=== PATIENT | female | born 1985 | race Hispanic/Latino ===

== ENCOUNTER 2016-07-22 14:18 | Observation (INO) | payer MEDICAID ==
[2016-07-22 14:18] VITALS: BMI 23.1
[2016-07-22 16:53] LABS: BASO % 0.4 % (0.0-2.0); EOS # 0.2 K/uL (0.0-0.7); EOS % 3.1 % (0.0-4.0); HEMATOCRIT 36.9 % (34.0-47.0); LYMPH # 2.1 K/uL (1.0-4.3); LYMPH % 28.1 % (20.0-40.0); MEAN CELL VOLUME 86.3 fL (81.0-99.0); MEAN CORPUSCULAR HEMOGLOBIN 28.7 pg (27.0-31.0); MEAN CORPUSCULAR HGB CONC 33.3 g/dL (33.0-37.0); MEAN PLATELET VOLUME 8.2 fL (7.2-11.7); MONO # 0.6 K/uL (0.0-0.8); MONO % 7.6 % (0.0-10.0); RED CELL DISTRIBUTION WIDTH 16.4 % (11.5-14.5); WHITE BLOOD COUNT 7.5 K/uL (4.8-10.8)
[2016-07-22 17:03] LABS: CHLORIDE 106 mmol/L (98-107); POTASSIUM 3.8 mmol/L (3.6-5.2); SODIUM 144 mmol/L (132-148)
[2016-07-22 17:05] LABS: BILIRUBIN,TOTAL 0.2 mg/dL (0.2-1.3); CARBON DIOXIDE 28 mmol/L (22-30); GFR AFRICAN-AMERICAN > 60
[2016-07-22 17:06] LABS: ALB/GLOB RATIO 1.8 (1.0-2.1); ALKALINE PHOSPHATASE 51 U/L (38-126); ALT/SGPT 19 U/L (9-52); AST/SGOT 16 U/L (14-36); BLOOD UREA NITROGEN 12 mg/dL (7-17); CALCIUM 8.9 mg/dl (8.6-10.4); GLUCOSE,RANDOM 94 mg/dL (65-105); TOTAL PROTEIN 6.6 g/dL (6.3-8.3)
[2016-07-22] MEDS ORDERED: Dextrose 50% SYRINGE Inj (50 ml) ONE (17:11)
--- NOTE | 2016-07-22 17:46 | C.PDOC ---
History Of Present Illness 30 y/o female sent to emergency department by Dr. Harrell for left breast abscess. Pt denies pain at this time. Denies fever, chills or discharge from abscess. Chief Complaint (Nursing): Abnormal Skin Integrity History Per: Patient History/Exam Limitations: no limitations Onset/Duration Of Symptoms: Days Current Symptoms Are (Timing): Still Present Severity: Mild Recent travel outside of the [place]: No Past Medical History Reviewed: Historical Data, Nursing Documentation, Vital Signs Vital Signs: Last Vital Signs Temp 98.6 F 07/22/16 17:40 Pulse 58 L 07/22/16 17:40 Resp 18 07/22/16 17:40 BP 93/52 L 07/22/16 17:40 Pulse Ox 100 07/22/16 17:49 - Medical History PMH: Back Problems, Bronchitis Surgical History: Back Surgery (10/11/2015) - [facility] Procedures DRAINAGE OF BILATERAL BREAST, OPEN APPROACH (05/07/16) DRAINAGE OF BILATERAL BREAST, OPEN APPROACH, DIAGNOSTIC (03/27/16) EXTRACTION OF CHEST SUBCU/FASCIA, OPEN APPROACH (05/22/16) RESECTION OF LUMBOSACRAL DISC, OPEN APPROACH (10/05/15) Family History: States: Unknown Family Hx - Social History Hx Tobacco Use: Yes Hx Alcohol Use: No Hx Substance Use: Yes (marijuana) - Immunization History Hx Tetanus Toxoid Vaccination: No Hx Influenza Vaccination: No Hx Pneumococcal Vaccination: No Review Of Systems Except As Marked, All Systems Reviewed And Found Negative. Constitutional: Negative for: Fever Musculoskeletal: Positive for: Other (abscess to left breast, no pain or discharge at this time) Physical Exam - Physical Exam Appears: Non-toxic, No Acute Distress Skin: Warm, Dry, No Rash Head: Atraumatic, Normacephalic Neck: Normal ROM, Supple Chest: Symmetrical, Other (2 cm circular abscess at 12 o' clock position left breast, no discharge) Cardiovascular: Rhythm Regular Respiratory: Normal Breath Sounds Gastrointestinal/Abdominal: Soft Extremity: Bilateral: Atraumatic Neurological/Psych: Oriented x3 ED Course And Treatment - Laboratory Results Result Diagrams: 07/22/16 16:45 07/22/16 16:45 O2 Sat by Pulse Oximetry: 100 (on room air) Pulse Ox Interpretation: Normal Progress Note: Spoke to Julio Cesar, admitted to service for OR tomorrow Disposition - Disposition Disposition: HOSPITALIZED Disposition Time: 16:15 Condition: STABLE - Clinical Impression Clinical Impression: Breast abscess - Scribe Statement The provider has reviewed the documentation as recorded by the Phil Castellon Provider Attestation: All medical record entries made by the Phil were at my direction and personally dictated by me. I have reviewed the chart and agree that the record accurately reflects my personal performance of the history, physical exam, medical decision making, and the department course for this patient. I have also personally directed, reviewed, and agree with the discharge instructions and disposition.
[2016-07-22] MEDS ORDERED: Oxycodone/Acetaminophen 5/325 mg Tab PO PRN (18:50)
[2016-07-23] MEDS ORDERED: HYDROmorphone 1 mg/ml ISec IVP ONE (11:15)
--- NOTE | 2016-07-23 11:36 | CP.PCM.CON ---
History of Present Illness - History of Present Illness History of Present Illness: 30 y/o female sent to emergency department by Dr. Harrell for left breast abscess. Pt denies pain at this time. Denies fever, chills or discharge from abscess. MAY NEED BREAST BX CONT IV ANTIBIOTICS - Medical History PMH: Back Problems, Bronchitis Surgical History: Back Surgery (10/11/2015) - [facility] Procedures DRAINAGE OF BILATERAL BREAST, OPEN APPROACH (05/07/16) DRAINAGE OF BILATERAL BREAST, OPEN APPROACH, DIAGNOSTIC (03/27/16) EXTRACTION OF CHEST SUBCU/FASCIA, OPEN APPROACH (05/22/16) RESECTION OF LUMBOSACRAL DISC, OPEN APPROACH (10/05/15) Review of Systems - Constitutional Constitutional: absent: As Per HPI, Anorexia, Chills, Daytime Sleepiness, Excessive Sweating, Fatigue, Fever, Frequent Falls, Headache, Increased Appetite , Lethargy, Malaise, Night Sweats, Snoring, Sleep Apnea, Weight Gain, Weight Loss, Weakness, Other - EENT Eyes: absent: As Per HPI, Blind Spots, Blurred Vision, Change in Vision, Decreased Night Vision, Diplopia, Discharge, Dry Eye, Exophthalmos, Floaters, Irritation, Itchy Eyes, Loss of Peripheral Vision, Pain, Photophobia, Requires Corrective Lenses, Sees Flashes, Spots in Vision, Tunnel Vision, Other Visual Disturbances, Loss of Vision, Other Ears: absent: As Per HPI, Decreased Hearing, Ear Discharge, Ear Pain, Tinnitus, Abnormal Hearing, Disequilibrium, Dizziness, Other Nose/Mouth/Throat: absent: As Per HPI, Epistaxis, Nasal Congestion, Nasal Discharge, Nasal Obstruction, Nasal Trauma, Nose Pain, Post Nasal Drip, Sinus Pain, Sinus Pressure, Bleeding Gums, Change in Voice, Dental Pain, Dry Mouth, Dysphagia, Halitosis, Hoarsness, Lip Swelling, Mouth Lesions, Mouth Pain, Odynophagia, Sore Throat, Throat Swelling, Tongue Swelling, Facial Pain, Neck Pain, Neck Mass, Other - Breasts Breasts: As Per HPI - Cardiovascular Cardiovascular: absent: As Per HPI, Acrocyanosis, Chest Pain, Chest Pain at Rest , Chest Pain with Activity, Claudication, Diaphoresis, Dyspnea, Dyspnea on Exertion, Edema, Irregular Heart Rhythm, Pain Radiating to Arm/Neck/Jaw, Leg Edema, Leg Ulcers, Lightheadedness, Orthopnea, Palpitations, Paroxysmal Nocturnal Dyspnea, Pedal Edema, Radiating Pain, Rapid Heart Rate, Slow Heart Rate, Syncope, Other - Respiratory Respiratory: absent: As Per HPI, Cough, Dyspnea, Hemoptysis, Dyspnea on Exertion , Wheezing, Snoring, Stridor, Pain on Inspiration, Chest Congestion, Excessive Mucous Production, Change in Mucous Color, Pain with Coughing, Other - Gastrointestinal Gastrointestinal: absent: As Per HPI, Abdominal Pain, Belching, Bloating, Change in Bowel Habits, Change in Stool Character, Coffee Ground Emesis, Constipation, Cramping, Diarrhea, Dyspepsia, Dysphagia, Early Satiety, Excessive Flatus, Fecal Incontinence, Heartburn, Hematemesis, Hematochezia, Loose Stools, Melena, Nausea, Odynophagia, Temesmus, Vomiting, Other - Genitourinary Genitourinary: absent: As Per HPI, Change in Urinary Stream, Difficulty Urinating, Dysuria, Flank Pain, Hematuria, Pyuria, Nocturia, Urinary Incontinence, Urinary Frequency, Urinary Hesitance, Urinary Urgency, Voiding Freq/Small Amts, Freq UTI, Hx Renal/Bladder Calculi, Hx /Renal Surgery, Bladder Distension, Other - Reproductive: Female Reproductive:Female: absent: As Per HPI, Amenorrhea, Amenorrhea/ Control, Currently Menstual, Cycle <21 Days, Cycle >35 Days, Cycle Variable, Menses 1-7 Days, Menses >/= 8 Days, Menses Variable, Cycle > 4 Weeks Between, No Menses for 6 Months, Heavy Menses, Light Menses, Normal Menses, Spotting Between Cycles , S/P Hysterectomy, Menopausal, Post Menopausal, Premenarche, Abnormal Vaginal Bleeding, Dysmenorrhea, Dyspareunia, Genital Lesions, Genital Pruritis, Pelvic Pain, Prolapse Symptoms, Sexual Dysfunction, Vaginal Discharge, Vaginal Dryness , Vaginal Odor, Vaginal Pruritis, Other - Menstruation Menstruation: absent: As Per HPI, Amenorrhea, Amenorrhea/ Control, Currently Menstual, Cycle <21 Days, Cycle >35 Days, Cycle Variable, Menses 1-7 Days, Menses >/= 8 Days, Menses Variable, Cycle > 4 Weeks Between, No Menses for 6 Months, Heavy Menses, Light Menses, Normal Menses, Spotting Between Cycles , S/P Hysterectomy, Menopausal, Post Menopausal, Premenarche, Abnormal Vaginal Bleeding, Dysmenorrhea, Other - Musculoskeletal Musculoskeletal: absent: As Per HPI, Abnormal Gait, Arthralgias, Atrophy, Back Pain, Deformity, Joint Swelling, Limited Range of Motion, Loss of Height, Muscle Cramps, Muscle Weakness, Myalgias, Neck Pain, Numbness, Radiating Pain into Limb, Stiffness, Tingling, Other - Integumentary Integumentary: As Per HPI, Skin Pain, Wounds - Neurological Neurological: absent: As Per HPI, Abnormal Gait, Abnormal Hearing, Abnormal Movements, Abnormal Speech, Behavioral Changes, Burning Sensations, Confusion, Convulsions, Disequilibrium, Dizziness, Numbness, Focal Weakness, Frequent Falls , Headaches, Lack of Coordination, Loss of Vision, Memory Loss, Paresthesias, Radicular Pain, Restless Legs, Sensory Deficit, Syncope, Tingling, Tremor, Vertigo, Weakness, Other Visual Disturbances, Other - Psychiatric Psychiatric: absent: As Per HPI, Abnormal Sleep Pattern, Anhedonia, Anxiety, Auditory Hallucinations, Behavioral Changes, Change in Appetite, Change in Libido, Confusion, Depression, Difficulty Concentrating, Hallucinations, Homicidal Ideation, Hopelessness, Irritability, Memory Loss, Mood Swings, Panic Attacks, Paranoia, Suicidal Ideation, Visual Hallucinations, Tactile Hallucinations, Other - Endocrine Endocrine: absent: As Per HPI, Change in Body Appearance, Change in Libido, Cold Intolorance, Deepening of Voice, Excessive Sweating, Fatigue, Flushing, Heat Intolorance, Increase in Ring/Shoe/Hat Size, Palpitations, Polydipsia, Polyphagia, Polyuria, Other - Hematologic/Lymphatic Hematologic: absent: As Per HPI, Easy Bleeding, Easy Bruising, Lymphadenopathy, Other Past Patient History - Infectious Disease Hx of Infectious Diseases: None - Tetanus Immunizations Tetanus Immunization: Up to Date - Past Medical History & Family History Past Medical History?: Yes - Past Social History Smoking Status: Heavy Smoker > 10 Cigarettes Daily - CARDIAC Hx Cardiac Disorders: No Hx Hypertension: No - PULMONARY Hx Respiratory Disorders: Yes Hx Bronchitis: Yes - NEUROLOGICAL Hx Neurological Disorder: No Hx Seizures: No - HEENT Hx HEENT Problems: No - RENAL Hx Chronic Kidney Disease: No - ENDOCRINE/METABOLIC Hx Endocrine Disorders: No - HEMATOLOGICAL/ONCOLOGICAL Hx Blood Disorders: No Hx Anemia: No Hx Human Immunodeficiency Virus (HIV): No - INTEGUMENTARY Hx Dermatological Problems: Yes Other/Comment: PT. FOR SURGERY 11/08/15-DX:LEFT BREAST MASS. - MUSCULOSKELETAL/RHEUMATOLOGICAL Hx Musculoskeletal Disorders: Yes Hx Falls: No Other/Comment: hx back surgery - GASTROINTESTINAL Hx Gastrointestinal Disorders: No - GENITOURINARY/GYNECOLOGICAL Hx Genitourinary Disorders: No Hx Sexually Transmitted Disorders: No - PSYCHIATRIC Hx Psychophysiologic Disorder: Yes Hx Substance Use: Yes (marijuana) - SURGICAL HISTORY Hx Surgeries: Yes Hx Breast Biopsy: Yes Hx Orthopedic Surgery: Yes (LUMBAR LAMINECTOMY) Other/Comment: bilateral breast surgery march,Back Surgery 10/11/15 - ANESTHESIA Hx Anesthesia: Yes Hx Anesthesia Reactions: No Hx Malignant Hyperthermia: No Has any member of the family had a problem w/ anesthesia?: No Meds Allergies/Adverse Reactions: Allergies Allergy/AdvReac Type Severity Reaction Status Date / Time No Known Allergies Allergy Verified 07/22/16 15:20 - Medications Medications: Current Medications Hydromorphone HCl (Dilaudid) 2 mg IVP Q4H PRN PRN Reason: Pain, severe (8-10) Last Admin: 07/23/16 11:13 Dose: 2 mg Vancomycin HCl 1,000 mg/ (Sodium Chloride) 250 mls @ 166.6 mls/hr IVPB Q12H OPAL Last Admin: 07/23/16 04:45 Dose: 166.6 mls/hr Oxycodone/Acetaminophen (Percocet 5/325 Mg Tab) 2 tab PO Q4H PRN PRN Reason: Pain, moderate (4-7) Stop: 07/25/16 18:51 Last Admin: 07/22/16 20:43 Dose: 2 tab Physical Exam - Constitutional Appears: Non-toxic, Chronically Ill - Head Exam Head Exam: NORMOCEPHALIC - Eye Exam Eye Exam: PERRL. absent: Scleral icterus - ENT Exam ENT Exam: Mucous Membranes Dry - Neck Exam Neck exam: Negative for: Lymphadenopathy - Respiratory Exam Respiratory Exam: Decreased Breath Sounds, Clear to Auscultation Bilateral - Cardiovascular Exam Cardiovascular Exam: REGULAR RHYTHM, +S1, +S2 - GI/Abdominal Exam GI & Abdominal Exam: Diminished Bowel Sounds, Soft. absent: Tenderness - Rectal Exam Rectal Exam: Deferred - Exam Exam: NORMAL INSPECTION - Extremities Exam Extremities exam: Negative for: calf tenderness, pedal edema, tenderness - Back Exam Back exam: absent: CVA tenderness (L), CVA tenderness (R) - Neurological Exam Neurological exam: Alert, CN II-XII Intact, Oriented x3, Reflexes Normal - Psychiatric Exam Psychiatric exam: Normal Affect - Skin Skin Exam: Dry Additional comments: left breast abscess cellulitis Results - Vital Signs Recent Vital Signs: Last Vital Signs Temp 98.4 F 07/23/16 09:18 Pulse 64 07/23/16 09:18 Resp 20 07/23/16 09:18 BP 98/64 L 07/23/16 09:18 Pulse Ox 98 07/23/16 06:39 - Labs Result Diagrams: 07/22/16 16:45 07/22/16 16:45 Labs: Laboratory Results - last 24 hr 07/22/16 07/23/16 16:45 09:39 WBC 7.5 RBC 4.27 Hgb 12.3 Hct 36.9 MCV 86.3 MCH 28.7 MCHC 33.3 RDW 16.4 H Plt Count 192 MPV 8.2 Neut % (Auto) 60.8 Lymph % (Auto) 28.1 Delta % (Auto) 7.6 Eos % (Auto) 3.1 Baso % (Auto) 0.4 Neut # 4.6 Lymph # 2.1 Delta # 0.6 Eos # 0.2 Baso # 0.0 PT 10.9 INR 1.0 APTT 31 Sodium 144 Potassium 3.8 Chloride 106 Carbon Dioxide 28 Anion Gap 14 BUN 12 Creatinine 0.6 L Est GFR ( Amer) > 60 Est GFR (Non-Af Amer) > 60 Random Glucose 94 Calcium 8.9 Total Bilirubin 0.2 AST 16 ALT 19 Alkaline Phosphatase 51 Total Protein 6.6 Albumin 4.2 Globulin 2.3 Albumin/Globulin Ratio 1.8 Urine HCG, Qual Negative Negative Blood Type A POSITIVE Antibody Screen Negative Assessment & Plan (1) Abscess of breast Status: Acute (2) Breast mass Status: Acute
[2016-07-23] MEDS ORDERED: Midazolam 2 MG/2 ML VIAL ONE (12:42)
[2016-07-23] MEDS ORDERED: Propofol 10 mg/ml Inj (20 ML) ONE (12:42)
[2016-07-23] MEDS ORDERED: Bupivacaine HCl 0.25% PF (10 ml) Inj ONE (13:51)
[2016-07-23] MEDS: HYDROmorphone 0.5 mg/0.5 ml ISec IVP PRN ×3 (14:29→15:00)
[2016-07-23 16:16] VITALS: BP 104/61; PULSE 66; RESP 20; TEMP 97.9; O2SAT 98
--- NOTE | 2016-07-23 16:27 | OP ---
PROCEDURE DATE: 07/23/2016 PREOPERATIVE DIAGNOSIS: Left breast abscess. POSTOPERATIVE DIAGNOSIS: Left breast abscess. PROCEDURE PERFORMED: Wide and deep excision of left breast abscess cavity with adjacent tissue trans zulema closure. SURGEON: Barry Harrell MD. ANESTHESIA: General. ESTIMATED BLOOD LOSS: 20 mL. POSTOPERATIVE CONDITION: Stable. INDICATIONS FOR SURGERY: This is a 30-year-old female with a chronic left breast abscess near her le ft nipple who presents with a small recurrence. She is taken to the OR after treatment and antibioti cs for drainage and possible excision of the abscess cavity. PROCEDURE: The patient was taken to the operating room and placed in a supine position. General ane sthesia was administered and the left breast was prepped and draped. An elliptical incision was made surrounding the breast, the indurated portion of the left nipple edge in the medial section. It was carried down deeply and the breast cavity was excised without entering any pus. Bleeding was contro lled using the Bovie. A larger chest wall blood vessel was repaired. The wound was irrigated with c opious amounts of saline solution after cultures were taken. Tissue flaps were raised and adjacent t issue transfer closure was performed with multiple layers of Monocryl, subcuticular Monocryl, and glu e. The patient tolerated procedure well, returned to recovery room in stable condition. Barry Harrell MD cc: [id number] TT: 07/23/2016 16:26:41 co
== END 2016-07-23 20:30 | disposition home or self-care (01) ==
LOC: C.ER 14:18 → C.9E 16:39 → INTOOBSV 16:39 → C.6T 17:27 → C.9E 17:43 → C.3T 17:48
PROVIDERS: ADMIT Surgery; ATTEND Surgery
DX: N61.1 Abscess of the breast and nipple (principal); J40 Bronchitis, not specified as acute or chronic; F17.210 Nicotine dependence, cigarettes, uncomplicated
CPT/HCPCS: 19120; 80053; 84703; 85025; 85610; 85730; 86850; 86900; 87070; 88304; 96365; 96366; 99284; G0378; J1170; J2250; J2704; J3010; J3370

== ENCOUNTER 2016-09-16 12:41 | Inpatient (IN) | payer MEDICAID ==
[2016-09-16 12:42] VITALS: BMI 23.1
[2016-09-16] MEDS ORDERED: Sodium Chloride 0.9% 1,000 ML IV ONE (14:14)
[2016-09-16] MEDS ORDERED: Sodium Chloride 0.9% 1,000 ML ONE (14:31)
[2016-09-16 14:58] LABS: URINE BILIRUBIN NEGATIVE (NEGATIVE); URINE BLOOD NEGATIVE (NEGATIVE); URINE COLOR Yellow (YELLOW); URINE GLUCOSE (UA) NORMAL (Normal); URINE KETONE NEGATIVE (NEGATIVE); URINE LEUKOCYTE ESTERASE NEG Leu/uL (Negative); URINE PROTEIN NEGATIVE (NEGATIVE); URINE UROBILINOGEN NORMAL mg/dL (0.2-1.0); WBC URINE < 1 /hpf (0-5)
[2016-09-16 15:03] LABS: BASO # 0.1 K/uL (0.0-0.2); BASO % 0.8 % (0.0-2.0); EOS # 0.2 K/uL (0.0-0.7); EOS % 3.1 % (0.0-4.0); HEMATOCRIT 40.3 % (34.0-47.0); LYMPH # 2.5 K/uL (1.0-4.3); LYMPH % 32.2 % (20.0-40.0); MEAN CELL VOLUME 86.1 fL (81.0-99.0); MEAN CORPUSCULAR HEMOGLOBIN 28.1 pg (27.0-31.0); MEAN CORPUSCULAR HGB CONC 32.6 g/dL (33.0-37.0); MEAN PLATELET VOLUME 8.3 fL (7.2-11.7); MONO # 0.7 K/uL (0.0-0.8); MONO % 8.6 % (0.0-10.0); NRBC % 0.1 % (0.0-2.0); RED CELL DISTRIBUTION WIDTH 16.7 % (11.5-14.5); WHITE BLOOD COUNT 7.8 K/uL (4.8-10.8)
--- NOTE | 2016-09-16 15:07 | C.PDOC ---
History Of Present Illness Pt was sent in by Dr. Harrell to go to OR for I&D of left breast abscess. Time Seen by Provider: 09/16/16 13:57 Chief Complaint (Nursing): Abnormal Skin Integrity History Per: Patient Onset/Duration Of Symptoms: Days Current Symptoms Are (Timing): Still Present Location Of Injury: Left: Chest (breast) Quality Of Symptoms: Painful, Swollen, Draining Severity: Moderate Additional History Per: Prior Records Past Medical History Reviewed: Historical Data, Nursing Documentation, Vital Signs Vital Signs: Last Vital Signs Temp 98.7 F 09/16/16 13:13 Pulse 70 09/16/16 13:13 Resp 20 09/16/16 13:13 BP 101/68 09/16/16 13:13 Pulse Ox 100 09/16/16 13:13 - Medical History PMH: Back Problems, Bronchitis Other PMH: Abscesses Surgical History: Back Surgery (10/11/2015) - [facility] Procedures DRAINAGE OF BILATERAL BREAST, OPEN APPROACH (05/07/16) DRAINAGE OF BILATERAL BREAST, OPEN APPROACH, DIAGNOSTIC (03/27/16) EXCISION OF LEFT BREAST, OPEN APPROACH (07/22/16) EXTRACTION OF CHEST SUBCU/FASCIA, OPEN APPROACH (05/22/16) RESECTION OF LUMBOSACRAL DISC, OPEN APPROACH (10/05/15) Family History: States: Unknown Family Hx - Social History Hx Tobacco Use: Yes Hx Alcohol Use: Yes Hx Substance Use: Yes (marijuana) - Immunization History Hx Tetanus Toxoid Vaccination: No Hx Influenza Vaccination: No Hx Pneumococcal Vaccination: No Review Of Systems Except As Marked, All Systems Reviewed And Found Negative. Constitutional: Positive for: Chills. Negative for: Weakness Cardiovascular: Negative for: Chest Pain Respiratory: Negative for: Shortness of Breath Gastrointestinal: Negative for: Vomiting, Abdominal Pain Musculoskeletal: Negative for: Neck Pain Neurological: Negative for: Weakness, Numbness, Seizures, Altered Mental Status Physical Exam - Physical Exam Appears: Non-toxic, No Acute Distress Skin: Warm, Dry Head: Atraumatic, Normacephalic Eye(s): bilateral: PERRL, EOMI Neck: Normal ROM, Supple Chest: Other (tender mass in left breast) Cardiovascular: Rhythm Regular Respiratory: Normal Breath Sounds, No Accessory Muscle Use Gastrointestinal/Abdominal: Soft, No Tenderness Back: No CVA Tenderness Extremity: Normal ROM Neurological/Psych: Oriented x3, Normal Motor, Normal Sensation ED Course And Treatment - Laboratory Results Urine POC: Negative O2 Sat by Pulse Oximetry: 100 Pulse Ox Interpretation: Normal Disposition Discussed With : Barry Harrell Comment: He wants pt to be admitted on his service and will take her to the OR today. Doctor Will See Patient In The: Hospital - Disposition Disposition: HOSPITALIZED Disposition Time: 15:09 Condition: STABLE - Clinical Impression Clinical Impression: Abscess of left breast
[2016-09-16 15:08] LABS: CHLORIDE 103 mmol/L (98-107); SODIUM 140 mmol/L (132-148)
[2016-09-16 15:10] LABS: AST/SGOT 17 U/L (14-36); BILIRUBIN,TOTAL 0.4 mg/dL (0.2-1.3); CARBON DIOXIDE 25 mmol/L (22-30); GFR AFRICAN-AMERICAN > 60
[2016-09-16 15:11] LABS: ALB/GLOB RATIO 1.3 (1.0-2.1); ALKALINE PHOSPHATASE 46 U/L (38-126); ALT/SGPT 17 U/L (9-52); BLOOD UREA NITROGEN 10 mg/dL (7-17); CALCIUM 8.5 mg/dl (8.6-10.4); GLUCOSE,RANDOM 77 mg/dL (65-105); TOTAL PROTEIN 7.5 g/dL (6.3-8.3)
[2016-09-16] MEDS ORDERED: Lactated Ringer's 1,000 ML IV ONE (16:05)
--- NOTE | 2016-09-16 16:35 | CP.PCM.CON ---
History of Present Illness - History of Present Illness History of Present Illness: Medicine Consult Note- Dr. Jain's service Patient is a 31 year old female presenting to the ED after being sent in by Dr. Harrell for I&D of a left breast abscess. PMD: Dr. Martínez Shea Past medical history: breast abscess, bulging disc disease Allergies: NKDA Past surgical history: Lumbar discectomy and fusion, breast biopsy, I&D (03/28) Family history: mother: lupus, cervical cancer, CAD; Aunt: from breast cancer; father unknown Social history: lives alone, occasional alcohol use, smokes half pack a day, smokes marijuana. Review of Systems - Constitutional Constitutional: absent: Chills, Fever, Weight Loss, Weakness - EENT Eyes: absent: Blurred Vision, Change in Vision - Cardiovascular Cardiovascular: absent: Chest Pain, Claudication, Irregular Heart Rhythm, Leg Edema, Palpitations, Pedal Edema - Respiratory Respiratory: absent: Cough, Dyspnea, Wheezing - Gastrointestinal Gastrointestinal: absent: Abdominal Pain, Constipation, Diarrhea, Nausea, Vomiting - Genitourinary Genitourinary: absent: Difficulty Urinating, Dysuria - Musculoskeletal Musculoskeletal: absent: Myalgias, Numbness, Tingling - Integumentary Integumentary: absent: Skin Ulcer, Sores, Swelling, Wounds - Neurological Neurological: absent: Abnormal Movements, Tremor, Weakness - Psychiatric Psychiatric: absent: Anxiety, Mood Swings, Panic Attacks - Endocrine Endocrine: absent: Fatigue, Palpitations Past Patient History - Infectious Disease Hx of Infectious Diseases: None - Tetanus Immunizations Tetanus Immunization: Up to Date - Past Medical History & Family History Past Medical History?: Yes - Past Social History Smoking Status: Light Smoker < 10 Cigarettes Daily Alcohol: Occasional Drugs: Cannabis - CARDIAC Hx Cardiac Disorders: No Hx Hypertension: No - PULMONARY Hx Bronchitis: Yes - NEUROLOGICAL Hx Neurological Disorder: No Hx Seizures: No - HEENT Hx HEENT Problems: No - RENAL Hx Chronic Kidney Disease: No - ENDOCRINE/METABOLIC Hx Endocrine Disorders: No - HEMATOLOGICAL/ONCOLOGICAL Hx Blood Disorders: No Hx Anemia: No Hx Human Immunodeficiency Virus (HIV): No - INTEGUMENTARY Hx Dermatological Problems: Yes Other/Comment: PT. FOR SURGERY 11/08/15-DX:LEFT BREAST MASS. - MUSCULOSKELETAL/RHEUMATOLOGICAL Hx Musculoskeletal Disorders: Yes Hx Falls: No Other/Comment: hx back surgery - GASTROINTESTINAL Hx Gastrointestinal Disorders: No - GENITOURINARY/GYNECOLOGICAL Hx Genitourinary Disorders: No Hx Sexually Transmitted Disorders: No - PSYCHIATRIC Hx Substance Use: Yes (marijuana) - SURGICAL HISTORY Hx Surgeries: Yes Hx Breast Biopsy: Yes Hx Orthopedic Surgery: Yes (LUMBAR LAMINECTOMY) Other/Comment: bilateral breast surgery march,Back Surgery 10/11/15 - ANESTHESIA Hx Anesthesia: Yes Hx Anesthesia Reactions: No Hx Malignant Hyperthermia: No Meds Allergies/Adverse Reactions: Allergies Allergy/AdvReac Type Severity Reaction Status Date / Time No Known Allergies Allergy Verified 09/16/16 13:20 Physical Exam - Constitutional Appears: Non-toxic, No Acute Distress - Head Exam Head Exam: ATRAUMATIC, NORMAL INSPECTION, NORMOCEPHALIC - Eye Exam Pupil Exam: NORMAL ACCOMODATION, PERRL - ENT Exam ENT Exam: Mucous Membranes Moist - Respiratory Exam Respiratory Exam: Clear to Auscultation Bilateral, NORMAL BREATHING PATTERN. absent: Prolonged Expiratory Phase, Rales, Rhonchi - Cardiovascular Exam Cardiovascular Exam: REGULAR RHYTHM, +S1, +S2 - GI/Abdominal Exam GI & Abdominal Exam: Normal Bowel Sounds, Soft. absent: Distended, Firm, Tenderness - Neurological Exam Neurological exam: Alert, Oriented x3 - Psychiatric Exam Psychiatric exam: Normal Affect - Skin Skin Exam: Dry, Normal Color, Warm Results - Vital Signs Recent Vital Signs: Last Vital Signs Temp 98.4 F 09/16/16 15:20 Pulse 76 09/16/16 15:20 Resp 16 09/16/16 15:20 BP 104/72 09/16/16 15:20 Pulse Ox 98 09/16/16 15:20 - Labs Result Diagrams: 09/16/16 14:57 09/16/16 14:57 Assessment & Plan (1) Abscess of breast Assessment and Plan: Scheduled for I&D today Status: Acute (2) Prophylactic measure Status: Acute
[2016-09-16] MEDS ORDERED: Propofol 10 mg/ml Inj (20 ML) ONE ×2 (16:43→16:57)
[2016-09-16] MEDS ORDERED: Midazolam 2 MG/2 ML VIAL ONE (16:43)
[2016-09-16] MEDS ORDERED: Bupivacaine HCl 0.25% PF (10 ml) Inj ONE (16:45)
[2016-09-16] MEDS ORDERED: ceFAZolin IV 1 gm in Dextrose 50 ML IVPB ONE (16:45)
[2016-09-16] MEDS ORDERED: Lidocaine 1% Inj (20ml) ONE (16:45)
[2016-09-16] MEDS: Bupivacaine HCl 0.25% PF (10 ml) Inj ONE (17:01)
[2016-09-16] MEDS ORDERED: Oxycodone/Acetaminophen 5/325 mg Tab PO PRN (17:27)
[2016-09-16] MEDS: HYDROmorphone 0.5 mg/0.5 ml ISec IVP PRN ×3 (17:30→19:05)
--- NOTE | 2016-09-16 17:46 | OP ---
PROCEDURE DATE: 09/16/2016 PREOPERATIVE DIAGNOSIS: Recurrent left breast abscess. POSTOPERATIVE DIAGNOSIS: Recurrent left breast abscess. PROCEDURE PERFORMED: Wide and deep excision of infected left breast tissue with drainage of an absce ss and partial tissue transfer closure. SURGEON: Barry Harrell MD ANESTHESIA: General endotracheal. ESTIMATED BLOOD LOSS: 30 mL. POSTOPERATIVE CONDITION: Stable. INDICATIONS FOR SURGERY: This is a 31-year-old female with multiple breast abscesses of the left pietro ast, now taken back for a definitive treatment of a recurrent abscess. GROSS FINDINGS: Nearly all the infected tissue in the area was removed from the breast performing es sentially a quadrantectomy. The wound was packed open after being partially closed. PROCEDURE: The patient was taken to the operating room. General anesthesia was administered and the left breast was prepped and draped. A subareolar incision was made through the abscess site and the abscess cavity along with all the other indurated tissue was completely excised down to the chest wa ll. Bleeding was controlled using the Bovie. A chest wall blood vessel was repaired. Partial tissu e transfer closure was performed at the periphery. The central portion was packed with wet saline ga uze. The patient tolerated procedure well, returned to recovery room in stable condition. Barry Harrell MD cc: [id number] TT: 09/16/2016 17:46:15 sn
--- NOTE | 2016-09-16 18:10 | CP.PCM.CON ---
History of Present Illness - History of Present Illness History of Present Illness: Pt is a 31 yo f ho of chronic bronchitis and s/p multiple i&d the left breast and h/o back surgery last year. As per patient, at baseline she has 8/10 lower back pain in the morning that improves with percocet and movement. she is able to function and perform daily activities after 1-2 TABS of pecocet. Acutely, the patient has 8/10, throbbing left breast pain. As per the patient, she previously was seen by Dr Singh in [place] for pain management, however it has been difficult for her to follow up due to multiple hospitalizations. At this time, her pain meds are prescribed by her PCP. Recommendation: 1. Start Dilaudid 1mg q4h prn for breakthrough pain 2. Re-start patients home pain medication: Percocet 5mg/325mg 1-2tabs PO q6h PRN 3. Consider starting fentanyl 25mcg patch for chronic pain 4. Patient may benefit from starting Gabapentin 300mg BID and increasing as necessary. 5. Patient may benefit from PT/OT 6. Care as per primary team Thank you for consult Past Patient History - Infectious Disease Hx of Infectious Diseases: None - Tetanus Immunizations Tetanus Immunization: Up to Date - Past Medical History & Family History Past Medical History?: Yes - Past Social History Smoking Status: Light Smoker < 10 Cigarettes Daily Alcohol: Occasional Drugs: Cannabis - CARDIAC Hx Cardiac Disorders: No Hx Hypertension: No - PULMONARY Hx Bronchitis: Yes - NEUROLOGICAL Hx Neurological Disorder: No Hx Seizures: No - HEENT Hx HEENT Problems: No - RENAL Hx Chronic Kidney Disease: No - ENDOCRINE/METABOLIC Hx Endocrine Disorders: No - HEMATOLOGICAL/ONCOLOGICAL Hx Blood Disorders: No Hx Anemia: No Hx Human Immunodeficiency Virus (HIV): No - INTEGUMENTARY Hx Dermatological Problems: Yes Other/Comment: PT. FOR SURGERY 11/08/15-DX:LEFT BREAST MASS. - MUSCULOSKELETAL/RHEUMATOLOGICAL Hx Musculoskeletal Disorders: Yes Hx Falls: No Other/Comment: hx back surgery - GASTROINTESTINAL Hx Gastrointestinal Disorders: No - GENITOURINARY/GYNECOLOGICAL Hx Genitourinary Disorders: No Hx Sexually Transmitted Disorders: No - PSYCHIATRIC Hx Substance Use: Yes (marijuana) - SURGICAL HISTORY Hx Surgeries: Yes Hx Breast Biopsy: Yes Hx Orthopedic Surgery: Yes (LUMBAR LAMINECTOMY) Other/Comment: bilateral breast surgery march,Back Surgery 10/11/15 - ANESTHESIA Hx Anesthesia: Yes Hx Anesthesia Reactions: No Hx Malignant Hyperthermia: No Meds Allergies/Adverse Reactions: Allergies Allergy/AdvReac Type Severity Reaction Status Date / Time No Known Allergies Allergy Verified 09/16/16 13:20 - Medications Medications: Current Medications Docusate Sodium (Colace) 100 mg PO BID [facility] Enoxaparin Sodium (Lovenox) 30 mg SC 1000,2200 [facility] Hydromorphone HCl (Dilaudid) 0.5 mg IVP Q10M PRN PRN Reason: Pain, moderate (4-7) Stop: 09/16/16 19:21 Vancomycin HCl 1,000 mg/ (Sodium Chloride) 250 mls @ 166.6 mls/hr IVPB Q12H [facility] Ketorolac Tromethamine (Toradol) 30 mg IVP Q6 PRN PRN Reason: pain Stop: 09/21/16 17:28 Ondansetron HCl (Zofran Inj) 4 mg IVP ONCE PRN PRN Reason: Nausea/Vomiting Stop: 09/16/16 19:21 Oxycodone/Acetaminophen (Percocet 5/325 Mg Tab) 2 tab PO Q4H PRN PRN Reason: pain Stop: 09/19/16 17:28 Pantoprazole Sodium (Protonix Inj) 40 mg IVP DAILY [facility] Results - Vital Signs Recent Vital Signs: Last Vital Signs Temp 98.4 F 09/16/16 15:20 Pulse 76 09/16/16 15:20 Resp 16 09/16/16 15:20 BP 104/72 09/16/16 15:20 Pulse Ox 98 09/16/16 15:20 - Labs Result Diagrams: 09/16/16 14:57 09/16/16 14:57
--- NOTE | 2016-09-16 19:56 | CP.PCM.HP ---
History of Present Illness - History of Present Illness History of Present Illness: Patient is a 31 year old female with past medical history of recurrent breast abscesses and lumbar disc disease who presents to the hospital for I&D of left breast abscess. Patient currently status post I&D and is resting comfortably in the PACU. Patient states pain is currently well-controlled. Patient states that she cannot remember how many procedures she has had on her breasts but states that she has frequent abscesses requiring I&D. Patient currently denies nausea and vomiting, dizziness, constipation, dysuria. PMD: Dr. Shea Past medical history: breast abscess, bulging disc disease Medications: Percocet 7.5/325- sometimes takes 2 at a time for severe back pain Allergies: NKDA Past surgical history: Lumbar discectomy and fusion, breast biopsy, I&Ds Family history: mother: lupus, cervical cancer, CAD; Aunt: from breast cancer; father unknown; sisters (5) and brother (1) - healthy Social history: lives alone, occasional alcohol use, smokes half pack a day, smokes marijuana to help with chronic back pain Present on Admission - Present on Admission Any Indicators Present on Admission: No Review of Systems - Constitutional Constitutional: absent: Chills, Fever - EENT Nose/Mouth/Throat: absent: Sore Throat - Breasts Breasts: Other (left breast s/p I&D). absent: Nipple Discharge, Nipple Inversion - Cardiovascular Cardiovascular: absent: Chest Pain, Dyspnea - Respiratory Respiratory: absent: Cough, Dyspnea - Gastrointestinal Gastrointestinal: absent: Abdominal Pain, Nausea, Vomiting - Genitourinary Genitourinary: absent: Difficulty Urinating, Dysuria - Musculoskeletal Musculoskeletal: Back Pain - Integumentary Additional comments: left breast abscess s/p I&D - Neurological Neurological: absent: Weakness Past Patient History - Infectious Disease Hx of Infectious Diseases: None - Tetanus Immunizations Tetanus Immunization: Up to Date - Past Medical History & Family History Past Medical History?: Yes - Past Social History Smoking Status: Light Smoker < 10 Cigarettes Daily Alcohol: Occasional Drugs: Cannabis - CARDIAC Hx Cardiac Disorders: No Hx Hypertension: No - PULMONARY Hx Bronchitis: Yes - NEUROLOGICAL Hx Neurological Disorder: No Hx Seizures: No - HEENT Hx HEENT Problems: No - RENAL Hx Chronic Kidney Disease: No - ENDOCRINE/METABOLIC Hx Endocrine Disorders: No - HEMATOLOGICAL/ONCOLOGICAL Hx Blood Disorders: No Hx Anemia: No Hx Human Immunodeficiency Virus (HIV): No - INTEGUMENTARY Hx Dermatological Problems: Yes Other/Comment: PT. FOR SURGERY 11/08/15-DX:LEFT BREAST MASS. - MUSCULOSKELETAL/RHEUMATOLOGICAL Hx Musculoskeletal Disorders: Yes Hx Falls: No Other/Comment: hx back surgery - GASTROINTESTINAL Hx Gastrointestinal Disorders: No - GENITOURINARY/GYNECOLOGICAL Hx Genitourinary Disorders: No Hx Sexually Transmitted Disorders: No - PSYCHIATRIC Hx Substance Use: Yes (marijuana) - SURGICAL HISTORY Hx Surgeries: Yes Hx Breast Biopsy: Yes Hx Orthopedic Surgery: Yes (LUMBAR LAMINECTOMY) Other/Comment: bilateral breast surgery march,Back Surgery 10/11/15 - ANESTHESIA Hx Anesthesia: Yes Hx Anesthesia Reactions: No Hx Malignant Hyperthermia: No Meds Allergies/Adverse Reactions: Allergies Allergy/AdvReac Type Severity Reaction Status Date / Time No Known Allergies Allergy Verified 09/16/16 13:20 Physical Exam - Constitutional Appears: Non-toxic, No Acute Distress - Head Exam Head Exam: ATRAUMATIC, NORMOCEPHALIC - Eye Exam Eye Exam: EOMI - ENT Exam ENT Exam: Mucous Membranes Moist - Respiratory Exam Respiratory Exam: Clear to Auscultation Bilateral - Cardiovascular Exam Cardiovascular Exam: +S1, +S2 - GI/Abdominal Exam GI & Abdominal Exam: Normal Bowel Sounds, Soft. absent: Tenderness - Extremities Exam Extremities exam: Positive for: normal inspection. Negative for: pedal edema - Skin Additional comments: left breast with clean and dry dressing covering areola and nipple Results - Vital Signs Recent Vital Signs: Last Vital Signs Temp 97.3 F L 09/16/16 17:17 Pulse 72 09/16/16 18:30 Resp 12 09/16/16 18:30 BP 99/50 L 09/16/16 18:30 Pulse Ox 96 09/16/16 18:30 - Labs Result Diagrams: 09/16/16 14:57 09/16/16 14:57 Assessment & Plan - Assessment and Plan (Free Text) Assessment: 1. Left breast abscess Dr. Harrell
[2016-09-16] MEDS ORDERED: Vancomycin 1 gm/NS 200 ml 200 ML IVPB SCH (21:00)
--- NOTE | 2016-09-16 21:20 | CP.PCM.CON ---
History of Present Illness - History of Present Illness History of Present Illness: Patient is a 31 year old female with past medical history of recurrent breast abscesses and lumbar disc disease who presents to the hospital for I&D of left breast abscess. Patient currently status post I&D and is resting comfortably in the PACU. Patient states pain is currently well-controlled. Patient states that she cannot remember how many procedures she has had on her breasts but states that she has frequent abscesses requiring I&D. Patient currently denies nausea and vomiting, dizziness, constipation, dysuria. PMD: Dr. Shea Past medical history: breast abscess, bulging disc disease Medications: Percocet 7.5/325- sometimes takes 2 at a time for severe back pain Allergies: NKDA Past surgical history: Lumbar discectomy and fusion, breast biopsy, I&Ds Family history: mother: lupus, cervical cancer, CAD; Aunt: from breast cancer; father unknown; sisters (5) and brother (1) - healthy Social history: lives alone, occasional alcohol use, smokes half pack a day, smokes marijuana to help with chronic back pain Review of Systems - Constitutional Constitutional: absent: Chills, Fever - EENT Eyes: absent: Change in Vision Nose/Mouth/Throat: absent: Sore Throat - Cardiovascular Cardiovascular: absent: Chest Pain, Dyspnea - Respiratory Respiratory: absent: Cough, Dyspnea - Gastrointestinal Gastrointestinal: absent: Abdominal Pain, Constipation, Diarrhea, Nausea, Vomiting - Genitourinary Genitourinary: absent: Difficulty Urinating, Dysuria - Musculoskeletal Musculoskeletal: Back Pain - Integumentary Additional comments: left breast abscess s/p I&D - Neurological Neurological: absent: Weakness Past Patient History - Infectious Disease Hx of Infectious Diseases: None - Tetanus Immunizations Tetanus Immunization: Up to Date - Past Medical History & Family History Past Medical History?: Yes - Past Social History Smoking Status: Light Smoker < 10 Cigarettes Daily Alcohol: Occasional Drugs: Cannabis - CARDIAC Hx Cardiac Disorders: No Hx Hypertension: No - PULMONARY Hx Bronchitis: Yes - NEUROLOGICAL Hx Neurological Disorder: No Hx Seizures: No - HEENT Hx HEENT Problems: No - RENAL Hx Chronic Kidney Disease: No - ENDOCRINE/METABOLIC Hx Endocrine Disorders: No - HEMATOLOGICAL/ONCOLOGICAL Hx Blood Disorders: No Hx Anemia: No Hx Human Immunodeficiency Virus (HIV): No - INTEGUMENTARY Hx Dermatological Problems: Yes Other/Comment: PT. FOR SURGERY 11/08/15-DX:LEFT BREAST MASS. - MUSCULOSKELETAL/RHEUMATOLOGICAL Hx Musculoskeletal Disorders: Yes Hx Falls: No Other/Comment: hx back surgery - GASTROINTESTINAL Hx Gastrointestinal Disorders: No - GENITOURINARY/GYNECOLOGICAL Hx Genitourinary Disorders: No Hx Sexually Transmitted Disorders: No - PSYCHIATRIC Hx Substance Use: Yes (marijuana) - SURGICAL HISTORY Hx Surgeries: Yes Hx Breast Biopsy: Yes Hx Orthopedic Surgery: Yes (LUMBAR LAMINECTOMY) Other/Comment: bilateral breast surgery march,Back Surgery 10/11/15 - ANESTHESIA Hx Anesthesia: Yes Hx Anesthesia Reactions: No Hx Malignant Hyperthermia: No Meds Allergies/Adverse Reactions: Allergies Allergy/AdvReac Type Severity Reaction Status Date / Time No Known Allergies Allergy Verified 09/16/16 13:20 - Medications Medications: Current Medications Docusate Sodium (Colace) 100 mg PO BID [facility] Enoxaparin Sodium (Lovenox) 30 mg SC 1000,2200 [facility] Vancomycin HCl 1,000 mg/ (Sodium Chloride) 250 mls @ 166.6 mls/hr IVPB Q12H [facility] Last Admin: 09/16/16 18:30 Dose: 250 mls Vancomycin/Sodium Chloride (Vancocin) 200 mls @ 133 mls/hr IVPB Q12H [facility] Stop: 09/21/16 21:01 Ketorolac Tromethamine (Toradol) 30 mg IVP Q6 PRN PRN Reason: pain Stop: 09/21/16 17:28 Oxycodone/Acetaminophen (Percocet 5/325 Mg Tab) 2 tab PO Q4H PRN PRN Reason: pain Stop: 09/19/16 17:28 Pantoprazole Sodium (Protonix Inj) 40 mg IVP DAILY [facility] Physical Exam - Constitutional Appears: Non-toxic, No Acute Distress - Head Exam Head Exam: ATRAUMATIC, NORMOCEPHALIC - Eye Exam Eye Exam: EOMI, Normal appearance - ENT Exam ENT Exam: Mucous Membranes Moist - Respiratory Exam Respiratory Exam: Clear to Auscultation Bilateral - Cardiovascular Exam Cardiovascular Exam: +S1, +S2 - GI/Abdominal Exam GI & Abdominal Exam: Normal Bowel Sounds, Soft. absent: Tenderness - Extremities Exam Extremities exam: Positive for: normal inspection. Negative for: pedal edema - Skin Additional comments: left breast with clean and dry dressing covering areola and nipple Results - Vital Signs Recent Vital Signs: Last Vital Signs Temp 98.6 F 09/16/16 20:51 Pulse 66 09/16/16 20:51 Resp 18 09/16/16 20:51 BP 103/61 09/16/16 20:51 Pulse Ox 98 09/16/16 20:51 - Labs Result Diagrams: 09/16/16 14:57 09/16/16 14:57 Assessment & Plan - Assessment and Plan (Free Text) Assessment: 1. Left breast abscess s/p I&D with Dr. Harrell, POD #0 continue vancomycin 1g q12 per Dr[address] Harrell f/u wound and blood cultures continue percocet and toradol for pain control 2. Prophylactic measure lovenox 30mg q12h colace 100mg PO BID Thank you for this consult.
[2016-09-16] MEDS: Enoxaparin 30 mg Syringe SC SCH (22:07)
[2016-09-17 06:15] LABS: BASO % 0.5 % (0.0-2.0); EOS # 0.3 K/uL (0.0-0.7); EOS % 3.5 % (0.0-4.0); HEMATOCRIT 33.3 % (34.0-47.0); LYMPH # 3.2 K/uL (1.0-4.3); LYMPH % 35.5 % (20.0-40.0); MEAN CELL VOLUME 86.2 fL (81.0-99.0); MEAN CORPUSCULAR HEMOGLOBIN 28.1 pg (27.0-31.0); MEAN CORPUSCULAR HGB CONC 32.6 g/dL (33.0-37.0); MEAN PLATELET VOLUME 8.3 fL (7.2-11.7); MONO # 0.7 K/uL (0.0-0.8); MONO % 8.3 % (0.0-10.0); RED CELL DISTRIBUTION WIDTH 17.1 % (11.5-14.5)
[2016-09-17 06:37] LABS: CHLORIDE 103 mmol/L (98-107)
[2016-09-17 06:38] LABS: SODIUM 140 mmol/L (132-148)
[2016-09-17 06:40] LABS: GFR AFRICAN-AMERICAN > 60
[2016-09-17 06:41] LABS: ALB/GLOB RATIO 1.3 (1.0-2.1); ALKALINE PHOSPHATASE 42 U/L (38-126); ALT/SGPT 22 U/L (9-52); AST/SGOT 21 U/L (14-36); BILIRUBIN,TOTAL 0.5 mg/dL (0.2-1.3); BLOOD UREA NITROGEN 11 mg/dL (7-17); CALCIUM 7.6 mg/dl (8.6-10.4); CARBON DIOXIDE 23 mmol/L (22-30); GLUCOSE,RANDOM 91 mg/dL (65-105); PHOSPHOROUS 3.7 mg/dL (2.5-4.5); TOTAL PROTEIN 6.2 g/dL (6.3-8.3)
[2016-09-17] MEDS: Enoxaparin 30 mg Syringe SC SCH (10:50)
[2016-09-17] MEDS ORDERED: Lidocaine 1% Inj (20ml) ONE (14:44)
[2016-09-17] MEDS ORDERED: Bupivacaine HCl 0.25% PF (10 ml) Inj ONE (14:45)
[2016-09-17] MEDS ORDERED: Midazolam 2 MG/2 ML VIAL ONE (15:14)
[2016-09-17] MEDS ORDERED: Propofol 10 mg/ml Inj (20 ML) ONE (15:15)
[2016-09-17] MEDS ORDERED: Bacitracin Ointment 30 GM TUBE ONE (15:36)
[2016-09-17] MEDS: Bupivacaine HCl 0.25% PF (10 ml) Inj ONE (15:39)
[2016-09-17] MEDS ORDERED: Lactated Ringer's 1,000 ML IV ONE (15:54)
[2016-09-17] MEDS ORDERED: Lactated Ringer's 1,000 ML IV SCH (16:00)
[2016-09-17] MEDS ORDERED: HYDROmorphone 0.5 mg/0.5 ml ISec IVP PRN (16:00)
[2016-09-17 16:39] VITALS: RESP 15
[2016-09-17] MEDS ORDERED: Succinylcholine Chloride 20 mg/ml Syr (5 ml) IV ONE (16:45)
--- NOTE | 2016-09-17 16:50 | CP.PCM.PN ---
<Jaylan Bustillos - Last Filed: 09/17/16 16:46> Subjective - Date & Time of Evaluation Date of Evaluation: 09/17/16 Time of Evaluation: 09:22 - Subjective Subjective: Pt seen and examined. Pt reports that she has slight pain in her left breast. Pt denies fever, chills, chest pain, shortness of breath, nausea, and vomiting. Objective - Vital Signs/Intake and Output Vital Signs (last 24 hours): Temp Pulse Resp BP Pulse Ox 98.7 F 68 15 110/52 L 100 09/17/16 15:58 09/17/16 16:15 09/17/16 16:15 09/17/16 16:15 09/17/16 16:15 Intake and Output: 09/17/16 09/17/16 06:59 18:59 Intake Total 250 Output Total 255 300 Balance -5 -300 - Medications Medications: Current Medications Docusate Sodium (Colace) 100 mg PO BID [facility] Last Admin: 09/17/16 09:21 Dose: Not Given Enoxaparin Sodium (Lovenox) 30 mg SC 1000,2200 [facility] Last Admin: 09/17/16 10:50 Dose: Not Given Hydromorphone HCl (Dilaudid) 0.5 mg IVP Q15M PRN PRN Reason: Pain, moderate (4-7) Stop: 09/17/16 18:01 Last Admin: 09/17/16 16:15 Dose: 0.5 mg Vancomycin HCl 1,000 mg/ (Sodium Chloride) 250 mls @ 166.6 mls/hr IVPB Q12H [facility] Last Admin: 09/17/16 07:10 Dose: Not Given Lactated Ringer's (Lactated Ringer's) 1,000 mls @ 150 mls/hr IV .Q6H40M [facility] Ketorolac Tromethamine (Toradol) 30 mg IVP Q6 PRN PRN Reason: pain Stop: 09/21/16 17:28 Last Admin: 09/17/16 13:59 Dose: 30 mg Ketorolac Tromethamine (Toradol) 30 mg IVP ONCE PRN PRN Reason: Pain, Mild (1-3) Stop: 09/17/16 18:01 Nicotine (Nicoderm Cq) 1 patch TD Q24H [facility] Ondansetron HCl (Zofran Inj) 4 mg IVP ONCE PRN PRN Reason: Nausea/Vomiting Stop: 09/17/16 18:02 Oxycodone/Acetaminophen (Percocet 5/325 Mg Tab) 2 tab PO Q4H PRN PRN Reason: pain Stop: 09/19/16 17:28 Last Admin: 09/17/16 01:47 Dose: 2 tab Pantoprazole Sodium (Protonix Inj) 40 mg IVP DAILY [facility] Last Admin: 09/17/16 09:19 Dose: 40 mg - Labs Labs: 09/17/16 06:00 09/17/16 06:00 PT 11.1 SECONDS (9.7-12.2) 09/16/16 14:57 INR 1.0 09/16/16 14:57 APTT 33 SECONDS (21-34) 09/16/16 14:57 - Constitutional Appears: No Acute Distress - Head Exam Head Exam: ATRAUMATIC, NORMOCEPHALIC - Eye Exam Eye Exam: EOMI, PERRL - ENT Exam ENT Exam: Mucous Membranes Moist. absent: Mucous Membranes Dry - Neck Exam Neck Exam: Full ROM. absent: Lymphadenopathy - Respiratory Exam Respiratory Exam: Clear to Ausculation Bilateral. absent: Rales, Rhonchi, Wheezes - Cardiovascular Exam Cardiovascular Exam: +S1, +S2. absent: Gallop, Rubs - GI/Abdominal Exam GI & Abdominal Exam: Soft, Normal Bowel Sounds. absent: Tenderness - Extremities Exam Extremities Exam: Full ROM. absent: Pedal Edema - Neurological Exam Neurological Exam: Alert, Awake, Oriented x3 - Psychiatric Exam Psychiatric exam: Normal Affect, Normal Mood - Skin Additional comments: Left breast s/p I&D, wound clean, dry, and intact Assessment and Plan - Assessment and Plan (Free Text) Assessment: Assessment: Left breast abscess s/p I&D with Dr. Harrell, POD #1 for first I&D, POD#0 for second I&D Vancomycin 1g q[address] Harrell Blood cultures negative after 24 hours Wound cultures no growth after 24 hours Toradol, percocet, dilaudid prn for pain Prophylactic measures DVT: Lovenox 40 mg sc qd GI: Protonix 40 mg po qd Colace 100mg PO BID for constipation <Niranjan Jain Jr. - Last Filed: 09/20/16 16:46> Objective - Vital Signs/Intake and Output Vital Signs (last 24 hours): Temp Pulse Resp BP Pulse Ox 99.1 F 56 L 15 120/57 L 98 09/17/16 16:30 09/17/16 16:45 09/17/16 16:30 09/17/16 16:30 09/17/16 16:30 - Labs Labs: 09/17/16 06:00 09/17/16 06:00 PT 11.1 SECONDS (9.7-12.2) 09/16/16 14:57 INR 1.0 09/16/16 14:57 APTT 33 SECONDS (21-34) 09/16/16 14:57 Attending/Attestation - Attestation I have personally seen and examined this patient.: Yes I have fully participated in the care of the patient.: Yes I have reviewed all pertinent clinical information, including history, physical exam and plan: Yes Notes (Text): 09/20/16 16:46 Patient seen and examined. Reviewed resident note and agree with findings and plan of care.
[2016-09-17 17:08] VITALS: BP 120/57; PULSE 56; TEMP 99.1; O2SAT 98
--- NOTE | 2016-09-17 18:33 | OP ---
PROCEDURE DATE: 09/17/2016 PREOPERATIVE DIAGNOSIS: Left breast abscess, status post incision and drainage and excision of absce ss tissue 1 day ago. POSTOPERATIVE DIAGNOSIS: Left breast abscess, status post incision and drainage and excision of absc ess tissue 1 day ago. PROCEDURE PERFORMED: Reopening of wound with debridement, re-drainage of abscess and adjacent tissue transfer closure. SURGEON: Barry Harrell MD ANESTHESIA: General. ESTIMATED BLOOD LOSS: 30 mL. POSTOPERATIVE CONDITION: Stable. INDICATIONS FOR SURGERY: This is a 31-year-old female with recurrent left breast abscess who has und ergone several procedures due to recurrent abscesses in her breast. All have involved drainages and ____ with secondary intention. Yesterday, she presented with a new abscess and a decision was made t o do a quadrantectomy and excise all of the tissue in the region. This was done, but the wound was l eft open and packed. Today, she is brought back to the operating room for debridement and closure of the wound. PROCEDURE: The patient taken to the operating room, general anesthesia was administered and the pack ing was removed and the left breast was prepped and draped. The wound was aggressively debrided. Re maining abscess was drained and cultured and cultures were taken. The wound was then aggressively pu lse irrigated with 4 liters of saline and Kantrex solution. A deep chest wall bleeder was repaired. Tissue flaps were raised. Generous tissue flaps were raised using the Bovie and adjacent tissue tra nsfer closure was performed with multiple layers of heavy Monocryl, subcuticular Monocryl, and then i t was covered with bacitracin and dressed sterilely. The patient tolerated procedure well and return ed to recovery room in stable condition. Barry Harrell MD cc: [id number] TT: 09/17/2016 18:32:50 sn
--- NOTE | 2016-09-18 09:48 | CP.PCM.DIS ---
Provider - Provider Date of Admission: 09/16/16 15:09 Attending physician: Barry Harrell MD Time Spent in preparation of Discharge (in minutes): 31 Hospital Course - Lab Results Lab Results: Micro Results 09/17/16 16:33 Breast - Left Gram Stain - Final 09/16/16 15:16 Blood Blood Culture - Preliminary NO GROWTH AFTER 24 HOURS 09/16/16 Unknown Abscess - Breast Gram Stain - Final 09/16/16 Unknown Abscess - Breast Wound Culture - Preliminary NO GROWTH AFTER 24 HOURS Most Recent Lab Values WBC 9.0 K/uL (4.8-10.8) 09/17/16 06:00 RBC 3.87 Mil/uL (3.80-5.20) 09/17/16 06:00 Hgb 10.9 g/dL (11.0-16.0) L D 09/17/16 06:00 Hct 33.3 % (34.0-47.0) L 09/17/16 06:00 MCV 86.2 fL (81.0-99.0) 09/17/16 06:00 MCH 28.1 pg (27.0-31.0) 09/17/16 06:00 MCHC 32.6 g/dL (33.0-37.0) L 09/17/16 06:00 RDW 17.1 % (11.5-14.5) H 09/17/16 06:00 Plt Count 175 K/uL (130-400) 09/17/16 06:00 MPV 8.3 fL (7.2-11.7) 09/17/16 06:00 Neut % (Auto) 52.2 % (50.0-75.0) 09/17/16 06:00 Lymph % (Auto) 35.5 % (20.0-40.0) 09/17/16 06:00 Whitley % (Auto) 8.3 % (0.0-10.0) 09/17/16 06:00 Eos % (Auto) 3.5 % (0.0-4.0) 09/17/16 06:00 Baso % (Auto) 0.5 % (0.0-2.0) 09/17/16 06:00 Neut # 4.7 K/uL (1.8-7.0) 09/17/16 06:00 Lymph # 3.2 K/uL (1.0-4.3) 09/17/16 06:00 Whitley # 0.7 K/uL (0.0-0.8) 09/17/16 06:00 Eos # 0.3 K/uL (0.0-0.7) 09/17/16 06:00 Baso # 0.0 K/uL (0.0-0.2) 09/17/16 06:00 PT 11.1 SECONDS (9.7-12.2) 09/16/16 14:57 INR 1.0 09/16/16 14:57 APTT 33 SECONDS (21-34) 09/16/16 14:57 Sodium 140 mmol/L (132-148) 09/17/16 06:00 Potassium 4.0 mmol/L (3.6-5.2) 09/17/16 06:00 Chloride 103 mmol/L (98-107) 09/17/16 06:00 Carbon Dioxide 23 mmol/L (22-30) 09/17/16 06:00 Anion Gap 17 (10-20) 09/17/16 06:00 BUN 11 mg/dL (7-17) 09/17/16 06:00 Creatinine 0.6 MG/DL (0.7-1.2) L 09/17/16 06:00 Est GFR ( Amer) > 60 09/17/16 06:00 Est GFR (Non-Af Amer) > 60 09/17/16 06:00 Random Glucose 91 mg/dL (65-105) 09/17/16 06:00 Calcium 7.6 mg/dl (8.6-10.4) L 09/17/16 06:00 Phosphorus 3.7 mg/dL (2.5-4.5) 09/17/16 06:00 Magnesium 2.0 mg/dL (1.6-2.3) 09/17/16 06:00 Total Bilirubin 0.5 mg/dL (0.2-1.3) 09/17/16 06:00 AST 21 U/L (14-36) 09/17/16 06:00 ALT 22 U/L (9-52) 09/17/16 06:00 Alkaline Phosphatase 42 U/L (38-126) 09/17/16 06:00 Total Protein 6.2 g/dL (6.3-8.3) L 09/17/16 06:00 Albumin 3.5 g/dL (3.5-5.0) 09/17/16 06:00 Globulin 2.7 gm/dL (2.2-3.9) 09/17/16 06:00 Albumin/Globulin Ratio 1.3 (1.0-2.1) 09/17/16 06:00 Urine Color Yellow (YELLOW) 09/16/16 14:43 Urine Clarity Clear (Clear) 09/16/16 14:43 Urine pH 8.0 (5.0-8.0) 09/16/16 14:43 Ur Specific [place] 1.014 (1.003-1.030) 09/16/16 14:43 Urine Protein Negative mg/dL (NEGATIVE) 09/16/16 14:43 Urine Glucose (UA) Normal mg/dL (Normal) 09/16/16 14:43 Urine Ketones Negative mg/dL (NEGATIVE) 09/16/16 14:43 Urine Blood Negative (NEGATIVE) 09/16/16 14:43 Urine Nitrate Negative (NEGATIVE) 09/16/16 14:43 Urine Bilirubin Negative (NEGATIVE) 09/16/16 14:43 Urine Urobilinogen Normal mg/dL (0.2-1.0) 09/16/16 14:43 Ur Leukocyte Esterase Neg Shaylee/uL (Negative) 09/16/16 14:43 Urine WBC (Auto) < 1 /hpf (0-5) 09/16/16 14:43 Ur Squamous Epith Cells 7 /hpf (0-5) H 09/16/16 14:43 Urine HCG, Qual Negative (NEGATIVE) 09/16/16 14:43 - Hospital Course Hospital Course: HPI: Patient is a 31 year old female with past medical history of recurrent breast abscesses and lumbar disc disease who presented to the hospital for I&D of left breast abscess. Medicine was consulted by Dr. Harrell for medical management. Hospital Course: Pt was taken to OR twice for I&D of left breast abscess. Pt was started on IV vancomycin. Pain was managed with toradol and dilaudid. Pt was started on zofran on nausea. Pt was also placed on GI/DVT prophylaxis. Pt was discharged as per Dr. harrell. Discharge Exam - Head Exam Head Exam: ATRAUMATIC, NORMOCEPHALIC Discharge Plan - Follow Up Plan Condition: STABLE Disposition: HOME/ ROUTINE Instructions: Breast Abscess Drainage (DC), Pain Management After Surgery (DC) , Acute Wound Care (DC), Debridement (DC), Abscess (GEN), Incision and Drainage (DC) Additional Instructions: See post op Rx and instructions Referrals: Barry Harrell MD [Staff Provider] -
[2016-09-18] MEDS ORDERED: Enoxaparin 40 mg Syringe SC SCH (10:00)
[2016-09-18] MEDS ORDERED: Pantoprazole 40 mg EC Tab PO SCH (10:00)
== END 2016-09-17 18:30 | disposition home or self-care (01) | DRG 266 ==
LOC: C.ER 12:41 → C.9E 15:09 → C.6T 20:48
PROVIDERS: ADMIT Surgery; ATTEND Surgery
PROC: 0HBU0ZZ Excision of Left Breast, Open Approach (ICD-10-PCS; principal; 2016-09-16 15:45)
PROC: 0HX5XZZ Transfer Chest Skin, External Approach (ICD-10-PCS; 2016-09-16 15:45)
DX: N61.1 Abscess of the breast and nipple (principal); F17.210 Nicotine dependence, cigarettes, uncomplicated; J42 Unspecified chronic bronchitis; G89.29 Other chronic pain; M54.9 Dorsalgia, unspecified; N64.4 Mastodynia; F12.90 Cannabis use, unspecified, uncomplicated; Z80.8 Family history of malignant neoplasm of other organs or systems; M51.86 Other intervertebral disc disorders, lumbar region

== ENCOUNTER 2016-10-10 11:26 | Inpatient (IN) | payer MEDICAID ==
[2016-10-10 11:26] VITALS: BMI 23.1
--- NOTE | 2016-10-10 12:16 | C.PDOC ---
History Of Present Illness Patient is a 31 y/o F with hx of breast abscesses, followed by Dr. Harrell, presenting with draining breast abscess. Patient reports that last surgery was in September and she discontinued her antibiotics 4 days ago and since that time her L breast began to drain again. She denies fever. She reports that she went to Dr. Kilgore for follow-up today and was told that she should go to the hospital to be evaluated by Dr. Harrell. Time Seen by Provider: 10/10/16 12:10 Chief Complaint (Nursing): Abnormal Skin Integrity Past Medical History Vital Signs: Last Vital Signs Temp 98.2 F 10/10/16 11:49 Pulse 88 10/10/16 11:49 Resp 18 10/10/16 11:49 BP 114/54 L 10/10/16 11:49 Pulse Ox 98 10/10/16 12:16 - Medical History PMH: Back Problems, Bronchitis Denies: Anemia, HIV, HTN, Chronic Kidney Disease, Seizures, Sexually Transmitted Disease Surgical History: Back Surgery (10/11/2015) - [facility] Procedures DRAINAGE OF BILATERAL BREAST, OPEN APPROACH (05/07/16) DRAINAGE OF BILATERAL BREAST, OPEN APPROACH, DIAGNOSTIC (03/27/16) EXCISION OF LEFT BREAST, OPEN APPROACH (09/16/16) EXTRACTION OF CHEST SUBCU/FASCIA, OPEN APPROACH (05/22/16) RESECTION OF LUMBOSACRAL DISC, OPEN APPROACH (10/05/15) TRANSFER CHEST SKIN, EXTERNAL APPROACH (09/16/16) Family History: States: Unknown Family Hx - Social History Hx Tobacco Use: Yes Hx Alcohol Use: No Hx Substance Use: Yes (marijuana) - Immunization History Hx Tetanus Toxoid Vaccination: No Hx Influenza Vaccination: No Hx Pneumococcal Vaccination: No Review Of Systems Constitutional: Positive for: Malaise. Negative for: Fever, Chills, Weakness, Weight loss Eyes: Negative for: Pain ENT: Negative for: Ear Pain Cardiovascular: Negative for: Chest Pain, Palpitations, Orthopnea, Edema, Light Headedness Respiratory: Negative for: Cough, Shortness of Breath, SOB with Excertion, Wheezing Gastrointestinal: Negative for: Nausea, Vomiting, Abdominal Pain, Diarrhea, Constipation Musculoskeletal: Positive for: Other (draining abscess to L breast). Negative for: Neck Pain Skin: Positive for: Lesions Neurological: Negative for: Weakness (no focal) Psych: Negative for: Anxiety Physical Exam - Physical Exam Appears: Well, Non-toxic Skin: Normal Color Head: Atraumatic, Normacephalic Eye(s): bilateral: Normal Inspection, PERRL, EOMI Neck: Normal, Supple Chest: Symmetrical, Other (draining wound to 9oclock on L breast. hardness at 6 oclock, tender) Cardiovascular: Rhythm Regular Respiratory: Normal Breath Sounds Gastrointestinal/Abdominal: Soft, No Tenderness, No Mass, No Distention Extremity: Normal ROM Neurological/Psych: Oriented x3 Gait: Steady ED Course And Treatment O2 Sat by Pulse Oximetry: 98 Medical Decision Making Medical Decision Making: Patient has hx of breast abscesses, now with recurring abscess after surgery and outpatient antibiotics. Spoke to surgeon and he reports that patient needs OR debridement today. He is requesting npo, labs and vancomycin with consult to Harry/Cristobal (spoke to Dr. Jain who is aware). Patient needs full admission for IV antibiotics as she failed outpatient therapy. Disposition - Disposition Disposition: HOSPITALIZED Disposition Time: 12:26 Condition: FAIR - Clinical Impression Clinical Impression: Breast abscess
[2016-10-10] MEDS ORDERED: Vancomycin 1 gm/NS 200 ml 1 GM/200 ML BAG IVPB STA (12:20)
[2016-10-10 12:58] LABS: BASO # 0.1 K/uL (0.0-0.2); BASO % 0.7 % (0.0-2.0); EOS # 0.1 K/uL (0.0-0.7); EOS % 1.4 % (0.0-4.0); HEMATOCRIT 39.3 % (34.0-47.0); LYMPH # 2.3 K/uL (1.0-4.3); LYMPH % 27.3 % (20.0-40.0); MEAN CELL VOLUME 86.3 fL (81.0-99.0); MEAN CORPUSCULAR HEMOGLOBIN 28.2 pg (27.0-31.0); MEAN CORPUSCULAR HGB CONC 32.7 g/dL (33.0-37.0); MONO # 0.7 K/uL (0.0-0.8); MONO % 8.9 % (0.0-10.0); NRBC % 0.1 % (0.0-2.0); RED CELL DISTRIBUTION WIDTH 16.8 % (11.5-14.5); WHITE BLOOD COUNT 8.4 K/uL (4.8-10.8)
[2016-10-10 13:32] LABS: CHLORIDE 94 mmol/L (98-107); POTASSIUM 3.8 mmol/L (3.6-5.2); SODIUM 138 mmol/L (132-148)
[2016-10-10 13:34] LABS: GFR AFRICAN-AMERICAN > 60
[2016-10-10 13:35] LABS: BLOOD UREA NITROGEN 6 mg/dL (7-17); CALCIUM 8.9 mg/dl (8.6-10.4); CARBON DIOXIDE 25 mmol/L (22-30); GLUCOSE,RANDOM 88 mg/dL (65-105)
[2016-10-10 13:43] LABS: RBC URINE 1 /hpf (0-3); URINE BACTERIA RARE (<OCC); URINE BILIRUBIN NEGATIVE (NEGATIVE); URINE BLOOD NEGATIVE (NEGATIVE); URINE COLOR Yellow (YELLOW); URINE GLUCOSE (UA) NORMAL (Normal); URINE KETONE TRACE mg/dL (NEGATIVE); URINE LEUKOCYTE ESTERASE NEG Leu/uL (Negative); URINE PROTEIN NEGATIVE (NEGATIVE); WBC URINE 2 /hpf (0-5)
[2016-10-10] MEDS ORDERED: Oxycodone/Acetaminophen 5/325 mg Tab PO PRN ×2 (14:09→15:53)
--- NOTE | 2016-10-10 14:33 | CP.PCM.CON ---
History of Present Illness - History of Present Illness History of Present Illness: PGY-1 Medicine Consult Note for Dr. Jain CC: Breast abscess 31F with past medical history of recurrent breast abscesses and lumbar disc disease who presents to the hospital for complaint of left breast abscess. Patient has had this problem numerous times in the past. She has had about 10 I& D of breast abscesses. Patient reports that last I&D was in September. She was taking antibiotics until 4 days ago. Since then, her L breast began to draining whitish-off white discharge. She reports that she went to Dr. Harrell's office today and he instructed her to go to the hospital to be evaluated. Patient states there is pain present in the left breast. She rates the pain as 8 /10 in severity. She described the pain as constant and throbbing in left breast without radiation. Pain medication relieves the pain temporarily while certain movement, positions, and palpations exacerbates it. Admits subjective fever/chills, cp, SOB. Denies palpitations, abd pain, nausea/vomiting, diarrhea , constipation, incontinence, dizziness, urinary symptoms. PMD: Dr. Shea PMH: breast abscess, bulging disc disease Medications: Percocet 7.5/325- sometimes takes 2 at a time for severe back pain Allergies: NKDA PSH: Lumbar discectomy and fusion, breast biopsy, I&Ds Hosp: Multiple in last year for breast abscesses and back pain FH: mother: lupus, cervical cancer, CAD; Aunt: from breast cancer; father unknown; sisters (5) and brother (1) - healthy Social: lives alone, occasional alcohol use, smokes half pack a day, smokes marijuana to help with chronic back pain Review of Systems - Constitutional Constitutional: Chills, Fever, Weakness - EENT Eyes: absent: Blurred Vision, Change in Vision Ears: absent: Dizziness Nose/Mouth/Throat: absent: Nasal Congestion, Nasal Discharge, Dysphagia - Breasts Breasts: Pain, Nipple Discharge, Skin Changes - Cardiovascular Cardiovascular: Chest Pain, Dyspnea on Exertion. absent: Irregular Heart Rhythm , Palpitations, Syncope - Respiratory Respiratory: Dyspnea on Exertion. absent: Cough, Hemoptysis, Wheezing - Gastrointestinal Gastrointestinal: absent: Abdominal Pain, Constipation, Diarrhea, Nausea, Vomiting - Genitourinary Genitourinary: absent: Change in Urinary Stream, Difficulty Urinating, Dysuria, Urinary Incontinence, Urinary Frequency, Urinary Hesitance - Musculoskeletal Musculoskeletal: Arthralgias, Myalgias. absent: Numbness, Stiffness, Tingling - Integumentary Integumentary: Lesions, New Lesions - Neurological Neurological: Weakness. absent: Confusion, Dizziness, Numbness, Headaches, Syncope, Tingling, Tremor, Vertigo - Psychiatric Psychiatric: absent: Anxiety, Homicidal Ideation, Suicidal Ideation - Endocrine Endocrine: Fatigue. absent: Flushing, Palpitations, Polydipsia, Polyphagia, Polyuria - Hematologic/Lymphatic Hematologic: absent: Easy Bleeding, Easy Bruising, Lymphadenopathy Past Patient History - Infectious Disease Hx of Infectious Diseases: None - Tetanus Immunizations Tetanus Immunization: Up to Date - Past Medical History & Family History Past Medical History?: Yes - Past Social History Smoking Status: Light Smoker < 10 Cigarettes Daily - CARDIAC Hx Hypertension: No - PULMONARY Hx Bronchitis: Yes - NEUROLOGICAL Hx Seizures: No - HEENT Hx HEENT Problems: No - RENAL Hx Chronic Kidney Disease: No - ENDOCRINE/METABOLIC Hx Endocrine Disorders: No - HEMATOLOGICAL/ONCOLOGICAL Hx Anemia: No Hx Human Immunodeficiency Virus (HIV): No - INTEGUMENTARY Hx Dermatological Problems: Yes Other/Comment: PT. FOR SURGERY 11/08/15-DX:LEFT BREAST MASS. - MUSCULOSKELETAL/RHEUMATOLOGICAL Hx Musculoskeletal Disorders: Yes Hx Falls: No Other/Comment: hx back surgery - GASTROINTESTINAL Hx Gastrointestinal Disorders: No - GENITOURINARY/GYNECOLOGICAL Hx Sexually Transmitted Disorders: No - PSYCHIATRIC Hx Substance Use: Yes (marijuana) - SURGICAL HISTORY Hx Surgeries: Yes Hx Breast Biopsy: Yes Hx Orthopedic Surgery: Yes (LUMBAR LAMINECTOMY) Other/Comment: bilateral breast surgery march,Back Surgery 10/11/15. Lt breast surgery 09/17/16 - ANESTHESIA Hx Anesthesia: Yes Hx Anesthesia Reactions: No Hx Malignant Hyperthermia: No Meds Allergies/Adverse Reactions: Allergies Allergy/AdvReac Type Severity Reaction Status Date / Time No Known Allergies Allergy Verified 09/16/16 13:20 - Medications Medications: Current Medications Oxycodone/Acetaminophen (Percocet 5/325 Mg Tab) 2 tab PO DAILY PRN PRN Reason: Pain, moderate (4-7) Stop: 10/13/16 14:10 Physical Exam - Constitutional Appears: Non-toxic, No Acute Distress - Head Exam Head Exam: ATRAUMATIC, NORMOCEPHALIC - Eye Exam Eye Exam: EOMI, Normal appearance Pupil Exam: PERRL - ENT Exam ENT Exam: Mucous Membranes Moist - Neck Exam Neck exam: Positive for: Normal Inspection - Respiratory Exam Respiratory Exam: Chest Wall Tenderness, Clear to Auscultation Bilateral, NORMAL BREATHING PATTERN - Cardiovascular Exam Cardiovascular Exam: REGULAR RHYTHM, +S1, +S2 - GI/Abdominal Exam GI & Abdominal Exam: Normal Bowel Sounds, Soft. absent: Distended, Firm, Guarding, Rebound, Tenderness - Extremities Exam Extremities exam: Positive for: normal capillary refill, tenderness, pedal pulses present. Negative for: pedal edema - Back Exam Back exam: absent: CVA tenderness (L), CVA tenderness (R) - Neurological Exam Neurological exam: Alert, CN II-XII Intact, Oriented x3 - Psychiatric Exam Psychiatric exam: Normal Affect, Normal Mood - Skin Skin Exam: Dry, Normal Color, Warm Additional comments: firm nodular mass in left breast at 6 o'clock postion TTP 2 open wounds located at nipple and inferior portion of areola Results - Vital Signs Recent Vital Signs: Last Vital Signs Temp 97.5 F L 10/10/16 13:10 Pulse 74 10/10/16 13:10 Resp 18 10/10/16 13:10 BP 100/66 10/10/16 13:10 Pulse Ox 100 10/10/16 13:10 - Labs Result Diagrams: 10/10/16 12:51 10/10/16 12:51 Labs: Laboratory Results - last 24 hr 10/10/16 10/10/16 10/10/16 12:51 12:51 12:51 WBC 8.4 RBC 4.55 Hgb 12.8 Hct 39.3 MCV 86.3 MCH 28.2 MCHC 32.7 L RDW 16.8 H Plt Count 241 MPV 8.0 Neut % (Auto) 61.7 Lymph % (Auto) 27.3 [place] % (Auto) 8.9 Eos % (Auto) 1.4 Baso % (Auto) 0.7 Neut # 5.2 Lymph # 2.3 [place] # 0.7 Eos # 0.1 Baso # 0.1 PT 11.4 INR 1.0 APTT 32 Sodium 138 Potassium 3.8 Chloride 94 L Carbon Dioxide 25 Anion Gap 22 H BUN 6 L Creatinine 0.6 L Est GFR ( Amer) > 60 Est GFR (Non-Af Amer) > 60 Random Glucose 88 Calcium 8.9 Urine Color Urine Clarity Urine pH Ur Specific [place] Urine Protein Urine Glucose (UA) Urine Ketones Urine Blood Urine Nitrate Urine Bilirubin Urine Urobilinogen Ur Leukocyte Esterase Urine WBC (Auto) Urine RBC (Auto) Ur Squamous Epith Cells Urine Bacteria Urine HCG, Qual Blood Type 10/10/16 10/10/16 12:51 13:18 WBC RBC Hgb Hct MCV MCH MCHC RDW Plt Count MPV Neut % (Auto) Lymph % (Auto) [place] % (Auto) Eos % (Auto) Baso % (Auto) Neut # Lymph # [place] # Eos # Baso # PT INR APTT Sodium Potassium Chloride Carbon Dioxide Anion Gap BUN Creatinine Est GFR ( Amer) Est GFR (Non-Af Amer) Random Glucose Calcium Urine Color Yellow Urine Clarity Hazy Urine pH 6.0 Ur Specific [place] 1.020 Urine Protein Negative Urine Glucose (UA) Normal Urine Ketones Trace Urine Blood Negative Urine Nitrate Negative Urine Bilirubin Negative Urine Urobilinogen 2.0 H Ur Leukocyte Esterase Neg Urine WBC (Auto) 2 Urine RBC (Auto) 1 Ur Squamous Epith Cells 4 Urine Bacteria Rare Urine HCG, Qual Negative Blood Type A POSITIVE Assessment & Plan - Assessment and Plan (Free Text) Plan: 1. Breast abscess I&D with Dr. Harrell tomorrow NPO past midnight Vancomycin 1 gm IVPB Q12H Zosyn 3.375 gm IVPB Q6H f/u wound, urine and blood culture Percocet 5/325 mg 2 tab Q6H PRN moderate pain Morphine 2 mg IVP Q4H PRN severe pain NS 100 cc/hr ID consult, Dr. Linares, help appreciated 2. Chronic back pain hx of Lumbar discectomy and fusion Percocet 5/325 mg 2 tab Q6H PRN moderate pain Morphine 2 mg IVP Q4H PRN severe pain 3. Bilateral Lower extremity tenderness Bilateral LE venous doppler 4. Prophylactic measure HOLD anticoagulation SCDs contraindicated due to LE tenderness Protonix 40 mg IVP daily colace 100mg PO BID
[2016-10-10] MEDS ORDERED: Piperacill/Tazo 3.375gm in Dex 3.375 GM/50 ML BAG IVPB SCH (15:30)
[2016-10-10] MEDS: Sodium Chloride 0.9% 1,000 ML IV SCH (16:28)
[2016-10-10] MEDS: Piperacill/Tazo 3.375gm in Dex 3.375 GM/50 ML BAG IVPB SCH ×2 (17:28→22:12)
--- NOTE | 2016-10-10 18:21 | CP.PCM.CON ---
History of Present Illness - History of Present Illness History of Present Illness: 31F with past medical history of recurrent breast abscesses and lumbar disc disease who presents to the hospital for complaint of left breast abscess. Patient has had this problem numerous times in the past. She has had about 10 I& D of breast abscesses. PMH: breast abscess, bulging disc disease Medications: Percocet 7.5/325- sometimes takes 2 at a time for severe back pain Allergies: NKDA PSH: Lumbar discectomy and fusion, breast biopsy, I&Ds Hosp: Multiple in last year for breast abscesses and back pain FH: mother: lupus, cervical cancer, CAD; Aunt: from breast cancer; father unknown; sisters (5) and brother (1) - healthy Social: lives alone, occasional alcohol use, smokes half pack a day, smokes marijuana to help with chronic back pain Review of Systems Review of Systems - Review of Systems All systems: reviewed and no additional remarkable complaints except - Constitutional Constitutional: As Per HPI - EENT Eyes: absent: As Per HPI, Blind Spots, Blurred Vision, Change in Vision, Decreased Night Vision, Diplopia, Discharge, Dry Eye, Exophthalmos, Floaters, Irritation, Itchy Eyes, Loss of Peripheral Vision, Pain, Photophobia, Requires Corrective Lenses, Sees Flashes, Spots in Vision, Tunnel Vision, Other Visual Disturbances, Loss of Vision, Other Ears: absent: As Per HPI, Decreased Hearing, Ear Discharge, Ear Pain, Tinnitus, Abnormal Hearing, Disequilibrium, Dizziness, Other Nose/Mouth/Throat: absent: As Per HPI, Epistaxis, Nasal Congestion, Nasal Discharge, Nasal Obstruction, Nasal Trauma, Nose Pain, Post Nasal Drip, Sinus Pain, Sinus Pressure, Bleeding Gums, Change in Voice, Dental Pain, Dry Mouth, Dysphagia, Halitosis, Hoarsness, Lip Swelling, Mouth Lesions, Mouth Pain, Odynophagia, Sore Throat, Throat Swelling, Tongue Swelling, Facial Pain, Neck Pain, Neck Mass, Other - Breasts Breasts: As Per HPI, Pain, Skin Changes - Cardiovascular Cardiovascular: absent: As Per HPI, Acrocyanosis, Chest Pain, Chest Pain at Rest , Chest Pain with Activity, Claudication, Diaphoresis, Dyspnea, Dyspnea on Exertion, Edema, Irregular Heart Rhythm, Pain Radiating to Arm/Neck/Jaw, Leg Edema, Leg Ulcers, Lightheadedness, Orthopnea, Palpitations, Paroxysmal Nocturnal Dyspnea, Pedal Edema, Radiating Pain, Rapid Heart Rate, Slow Heart Rate, Syncope, Other - Respiratory Respiratory: absent: As Per HPI, Cough, Dyspnea, Hemoptysis, Dyspnea on Exertion , Wheezing, Snoring, Stridor, Pain on Inspiration, Chest Congestion, Excessive Mucous Production, Change in Mucous Color, Pain with Coughing, Other - Gastrointestinal Gastrointestinal: absent: As Per HPI, Abdominal Pain, Belching, Bloating, Change in Bowel Habits, Change in Stool Character, Coffee Ground Emesis, Constipation, Cramping, Diarrhea, Dyspepsia, Dysphagia, Early Satiety, Excessive Flatus, Fecal Incontinence, Heartburn, Hematemesis, Hematochezia, Loose Stools, Melena, Nausea, Odynophagia, Temesmus, Vomiting, Other - Genitourinary Genitourinary: absent: As Per HPI, Change in Urinary Stream, Difficulty Urinating, Dysuria, Flank Pain, Hematuria, Pyuria, Nocturia, Urinary Incontinence, Urinary Frequency, Urinary Hesitance, Urinary Urgency, Voiding Freq/Small Amts, Freq UTI, Hx Renal/Bladder Calculi, Hx /Renal Surgery, Bladder Distension, Other - Menstruation Menstruation: absent: As Per HPI, Amenorrhea, Amenorrhea/ Control, Currently Menstual, Cycle <21 Days, Cycle >35 Days, Cycle Variable, Menses 1-7 Days, Menses >/= 8 Days, Menses Variable, Cycle > 4 Weeks Between, No Menses for 6 Months, Heavy Menses, Light Menses, Normal Menses, Spotting Between Cycles , S/P Hysterectomy, Menopausal, Post Menopausal, Premenarche, Abnormal Vaginal Bleeding, Dysmenorrhea, Other - Musculoskeletal Musculoskeletal: absent: As Per HPI, Abnormal Gait, Arthralgias, Atrophy, Back Pain, Deformity, Joint Swelling, Limited Range of Motion, Loss of Height, Muscle Cramps, Muscle Weakness, Myalgias, Neck Pain, Numbness, Radiating Pain into Limb, Stiffness, Tingling, Other - Integumentary Integumentary: As Per HPI - Neurological Neurological: absent: As Per HPI, Abnormal Gait, Abnormal Hearing, Abnormal Movements, Abnormal Speech, Behavioral Changes, Burning Sensations, Confusion, Convulsions, Disequilibrium, Dizziness, Numbness, Focal Weakness, Frequent Falls , Headaches, Lack of Coordination, Loss of Vision, Memory Loss, Paresthesias, Radicular Pain, Restless Legs, Sensory Deficit, Syncope, Tingling, Tremor, Vertigo, Weakness, Other Visual Disturbances, Other - Psychiatric Psychiatric: absent: As Per HPI, Abnormal Sleep Pattern, Anhedonia, Anxiety, Auditory Hallucinations, Behavioral Changes, Change in Appetite, Change in Libido, Confusion, Depression, Difficulty Concentrating, Hallucinations, Homicidal Ideation, Hopelessness, Irritability, Memory Loss, Mood Swings, Panic Attacks, Paranoia, Suicidal Ideation, Visual Hallucinations, Tactile Hallucinations, Other - Endocrine Endocrine: absent: As Per HPI, Change in Body Appearance, Change in Libido, Cold Intolorance, Deepening of Voice, Excessive Sweating, Fatigue, Flushing, Heat Intolorance, Increase in Ring/Shoe/Hat Size, Palpitations, Polydipsia, Polyphagia, Polyuria, Other - Hematologic/Lymphatic Hematologic: absent: As Per HPI, Easy Bleeding, Easy Bruising, Lymphadenopathy, Other Past Patient History - Infectious Disease Hx of Infectious Diseases: None - Tetanus Immunizations Tetanus Immunization: Up to Date - Past Medical History & Family History Past Medical History?: Yes - Past Social History Smoking Status: Light Smoker < 10 Cigarettes Daily - CARDIAC Hx Hypertension: No - PULMONARY Hx Bronchitis: Yes - NEUROLOGICAL Hx Seizures: No - HEENT Hx HEENT Problems: No - RENAL Hx Chronic Kidney Disease: No - ENDOCRINE/METABOLIC Hx Endocrine Disorders: No - HEMATOLOGICAL/ONCOLOGICAL Hx Anemia: No Hx Human Immunodeficiency Virus (HIV): No - INTEGUMENTARY Hx Dermatological Problems: Yes Other/Comment: PT. FOR SURGERY 11/08/15-DX:LEFT BREAST MASS. - MUSCULOSKELETAL/RHEUMATOLOGICAL Hx Musculoskeletal Disorders: Yes Hx Falls: No Other/Comment: hx back surgery - GASTROINTESTINAL Hx Gastrointestinal Disorders: No - GENITOURINARY/GYNECOLOGICAL Hx Sexually Transmitted Disorders: No - PSYCHIATRIC Hx Substance Use: Yes (marijuana) - SURGICAL HISTORY Hx Surgeries: Yes Hx Breast Biopsy: Yes Hx Orthopedic Surgery: Yes (LUMBAR LAMINECTOMY) Other/Comment: bilateral breast surgery march,Back Surgery 10/11/15. Lt breast surgery 09/17/16 - ANESTHESIA Hx Anesthesia: Yes Hx Anesthesia Reactions: No Hx Malignant Hyperthermia: No Meds Allergies/Adverse Reactions: Allergies Allergy/AdvReac Type Severity Reaction Status Date / Time No Known Allergies Allergy Verified 09/16/16 13:20 - Medications Medications: Current Medications Acetaminophen (Tylenol 325mg Tab) 650 mg PO Q6 PRN PRN Reason: Pain, Mild (1-3) Docusate Sodium (Colace) 100 mg PO BID [facility] Last Admin: 10/10/16 17:30 Dose: 100 mg Vancomycin HCl 1 gm/ Sodium (Chloride) 250 mls @ 166.6 mls/hr IVPB Q12H [facility] Sodium Chloride (Sodium Chloride 0.9%) 1,000 mls @ 100 mls/hr IV .Q10H [facility] Last Admin: 10/10/16 16:28 Dose: 100 mls/hr Piperacillin Sod/Tazobactam Sod (Zosyn 3.375 Gm Iv Premix) 3.375 gm in 50 mls @ 100 mls/hr IVPB Q6H [facility] Last Admin: 10/10/16 17:28 Dose: 100 mls/hr Morphine Sulfate (Morphine) 2 mg IVP Q4 PRN PRN Reason: Pain, severe (8-10) Oxycodone/Acetaminophen (Percocet 5/325 Mg Tab) 2 tab PO Q6H PRN PRN Reason: Pain, moderate (4-7) Stop: 10/13/16 14:10 Pantoprazole Sodium (Protonix Inj) 40 mg IVP DAILY [facility] Physical Exam - Constitutional Appears: Non-toxic, Chronically Ill - Head Exam Head Exam: NORMOCEPHALIC - Eye Exam Eye Exam: PERRL. absent: Scleral icterus - ENT Exam ENT Exam: Mucous Membranes Dry, Normal External Ear Exam - Neck Exam Neck exam: Negative for: Lymphadenopathy - Respiratory Exam Respiratory Exam: Decreased Breath Sounds, Clear to Auscultation Bilateral - Cardiovascular Exam Cardiovascular Exam: REGULAR RHYTHM, +S1, +S2 - GI/Abdominal Exam GI & Abdominal Exam: Diminished Bowel Sounds, Soft. absent: Tenderness - Rectal Exam Rectal Exam: Deferred - Exam Exam: NORMAL INSPECTION - Extremities Exam Extremities exam: Negative for: calf tenderness, pedal edema - Back Exam Back exam: absent: CVA tenderness (L), CVA tenderness (R) - Neurological Exam Neurological exam: Alert, CN II-XII Intact, Oriented x3, Reflexes Normal - Psychiatric Exam Psychiatric exam: Normal Mood - Skin Skin Exam: Dry Results - Vital Signs Recent Vital Signs: Last Vital Signs Temp 97.5 F L 10/10/16 13:10 Pulse 74 10/10/16 13:10 Resp 18 10/10/16 13:10 BP 100/66 10/10/16 13:10 Pulse Ox 100 10/10/16 13:10 - Labs Result Diagrams: 10/10/16 12:51 10/10/16 12:51 Labs: Laboratory Results - last 24 hr 10/10/16 10/10/16 10/10/16 12:51 12:51 12:51 WBC 8.4 RBC 4.55 Hgb 12.8 Hct 39.3 MCV 86.3 MCH 28.2 MCHC 32.7 L RDW 16.8 H Plt Count 241 MPV 8.0 Neut % (Auto) 61.7 Lymph % (Auto) 27.3 [place] % (Auto) 8.9 Eos % (Auto) 1.4 Baso % (Auto) 0.7 Neut # 5.2 Lymph # 2.3 [place] # 0.7 Eos # 0.1 Baso # 0.1 PT 11.4 INR 1.0 APTT 32 Sodium 138 Potassium 3.8 Chloride 94 L Carbon Dioxide 25 Anion Gap 22 H BUN 6 L Creatinine 0.6 L Est GFR ( Amer) > 60 Est GFR (Non-Af Amer) > 60 Random Glucose 88 Calcium 8.9 Prolactin Urine Color Urine Clarity Urine pH Ur Specific [place] Urine Protein Urine Glucose (UA) Urine Ketones Urine Blood Urine Nitrate Urine Bilirubin Urine Urobilinogen Ur Leukocyte Esterase Urine WBC (Auto) Urine RBC (Auto) Ur Squamous Epith Cells Urine Bacteria Urine HCG, Qual Blood Type Antibody Screen 10/10/16 10/10/16 10/10/16 12:51 13:18 16:05 WBC RBC Hgb Hct MCV MCH MCHC RDW Plt Count MPV Neut % (Auto) Lymph % (Auto) [place] % (Auto) Eos % (Auto) Baso % (Auto) Neut # Lymph # [place] # Eos # Baso # PT INR APTT Sodium Potassium Chloride Carbon Dioxide Anion Gap BUN Creatinine Est GFR ( Amer) Est GFR (Non-Af Amer) Random Glucose Calcium Prolactin 20.6 H Urine Color Yellow Urine Clarity Hazy Urine pH 6.0 Ur Specific [place] 1.020 Urine Protein Negative Urine Glucose (UA) Normal Urine Ketones Trace Urine Blood Negative Urine Nitrate Negative Urine Bilirubin Negative Urine Urobilinogen 2.0 H Ur Leukocyte Esterase Neg Urine WBC (Auto) 2 Urine RBC (Auto) 1 Ur Squamous Epith Cells 4 Urine Bacteria Rare Urine HCG, Qual Negative Blood Type A POSITIVE Antibody Screen Negative Assessment & Plan (1) Breast abscess Status: Acute (2) Abscess of breast Status: Acute (3) Breast abscess Status: Acute (4) Breast mass Status: Acute (5) Bulging disc Status: Acute - Assessment and Plan (Free Text) Assessment: may need breast biopsy, mammogram and MRI add cefepime
[2016-10-10 20:01] VITALS: RESP 20
[2016-10-11 01:59] VITALS: O2SAT 100
[2016-10-11] MEDS: Piperacill/Tazo 3.375gm in Dex 3.375 GM/50 ML BAG IVPB SCH ×2 (04:33→13:06)
[2016-10-11] MEDS: Sodium Chloride 0.9% 1,000 ML IV SCH ×2 (05:34→11:46)
[2016-10-11 08:22] LABS: BASO % 0.3 % (0.0-2.0); EOS # 0.2 K/uL (0.0-0.7); EOS % 2.7 % (0.0-4.0); HEMATOCRIT 36.7 % (34.0-47.0); LYMPH # 3.1 K/uL (1.0-4.3); LYMPH % 34.1 % (20.0-40.0); MEAN CORPUSCULAR HEMOGLOBIN 28.6 pg (27.0-31.0); MEAN CORPUSCULAR HGB CONC 32.5 g/dL (33.0-37.0); MEAN PLATELET VOLUME 8.3 fL (7.2-11.7); MONO # 0.7 K/uL (0.0-0.8); NRBC % 0.1 % (0.0-2.0); RED CELL DISTRIBUTION WIDTH 16.9 % (11.5-14.5)
[2016-10-11 08:28] VITALS: BP 105/56; PULSE 54; TEMP 98.1
[2016-10-11 08:53] LABS: CHLORIDE 106 mmol/L (98-107)
[2016-10-11 08:54] LABS: POTASSIUM 4.2 mmol/L (3.6-5.2); SODIUM 139 mmol/L (132-148)
[2016-10-11 08:56] LABS: ALB/GLOB RATIO 1.3 (1.0-2.1); ALKALINE PHOSPHATASE 40 U/L (38-126); AST/SGOT 14 U/L (14-36); BILIRUBIN,TOTAL 0.5 mg/dL (0.2-1.3); BLOOD UREA NITROGEN 16 mg/dL (7-17); CARBON DIOXIDE 25 mmol/L (22-30); GFR AFRICAN-AMERICAN > 60; GLUCOSE,RANDOM 91 mg/dL (65-105); TOTAL PROTEIN 6.1 g/dL (6.3-8.3)
[2016-10-11 08:57] LABS: ALT/SGPT < 6 U/L (9-52); CALCIUM 7.8 mg/dl (8.6-10.4); MAGNESIUM 2.1 mg/dL (1.6-2.3)
--- NOTE | 2016-10-11 15:43 | CP.PCM.PN ---
Subjective - Date & Time of Evaluation Date of Evaluation: 10/11/16 Time of Evaluation: 09:00 - Subjective Subjective: afeb or cultures pending exam unchanged Objective - Vital Signs/Intake and Output Vital Signs (last 24 hours): Temp Pulse Resp BP Pulse Ox 98.1 F 54 L 20 105/56 L 100 10/11/16 08:27 10/11/16 08:27 10/11/16 08:27 10/11/16 08:27 10/11/16 08:27 Intake and Output: 10/11/16 10/11/16 06:59 18:59 Intake Total 1100 Balance 1100 - Medications Medications: Current Medications Acetaminophen (Tylenol 325mg Tab) 650 mg PO Q6 PRN PRN Reason: Pain, Mild (1-3) Docusate Sodium (Colace) 100 mg PO BID [facility] Last Admin: 10/11/16 10:38 Dose: Not Given Vancomycin HCl 1 gm/ Sodium (Chloride) 250 mls @ 166.6 mls/hr IVPB Q12H [facility] Last Admin: 10/11/16 14:46 Dose: Not Given Sodium Chloride (Sodium Chloride 0.9%) 1,000 mls @ 100 mls/hr IV .Q10H [facility] Last Admin: 10/11/16 11:46 Dose: Not Given Piperacillin Sod/Tazobactam Sod (Zosyn 3.375 Gm Iv Premix) 3.375 gm in 50 mls @ 100 mls/hr IVPB Q6H [facility] Last Admin: 10/11/16 13:06 Dose: 100 mls/hr Morphine Sulfate (Morphine) 2 mg IVP Q4 PRN PRN Reason: Pain, severe (8-10) Last Admin: 10/11/16 13:02 Dose: 2 mg Oxycodone/Acetaminophen (Percocet 5/325 Mg Tab) 2 tab PO Q6H PRN PRN Reason: Pain, moderate (4-7) Stop: 10/13/16 14:10 Pantoprazole Sodium (Protonix Inj) 40 mg IVP DAILY [facility] Last Admin: 10/11/16 13:06 Dose: 40 mg - Labs Labs: 10/11/16 08:05 10/11/16 08:05 PT 11.4 SECONDS (9.7-12.2) 10/10/16 12:51 INR 1.0 10/10/16 12:51 APTT 32 SECONDS (21-34) 10/10/16 12:51 Assessment and Plan (1) Breast abscess Status: Acute (2) Abscess of breast Status: Acute (3) Breast abscess Status: Acute (4) Breast mass Status: Acute (5) Bulging disc Status: Acute
--- NOTE | 2016-10-11 16:47 | CP.PCM.PN ---
<Ramon Arellano - Last Filed: 10/11/16 16:44> Subjective - Date & Time of Evaluation Date of Evaluation: 10/11/16 Time of Evaluation: 08:00 - Subjective Subjective: PGY-1 Medicine Progress Note for Dr. Jain Patient seen and examined at bedside. Patient was NPO overnight. Patient complaining that she is hungry and wants to eat. Mg oliveira was called on patient because she became frustrated that Dr. Harrell would not be here until after 2 pm and she could not eat. Patient ended up calming down and agreed to procedure. Patient went down for procedure, but it was called. When patient returned to floor, she was extremely upset and decided to sign out AMA. She was aware of risks of doing so and she understood but still wanted to leave. Objective - Vital Signs/Intake and Output Vital Signs (last 24 hours): Temp Pulse Resp BP Pulse Ox 98.1 F 54 L 20 105/56 L 100 10/11/16 08:27 10/11/16 08:27 10/11/16 08:27 10/11/16 08:27 10/11/16 08:27 Intake and Output: 10/11/16 10/11/16 06:59 18:59 Intake Total 1100 Balance 1100 - Labs Labs: 10/11/16 08:05 10/11/16 08:05 PT 11.4 SECONDS (9.7-12.2) 10/10/16 12:51 INR 1.0 10/10/16 12:51 APTT 32 SECONDS (21-34) 10/10/16 12:51 - Constitutional Appears: No Acute Distress - Head Exam Head Exam: ATRAUMATIC, NORMOCEPHALIC - Eye Exam Eye Exam: EOMI, Normal appearance Pupil Exam: PERRL - ENT Exam ENT Exam: Mucous Membranes Moist - Neck Exam Neck Exam: Normal Inspection - Respiratory Exam Respiratory Exam: Clear to Ausculation Bilateral, NORMAL BREATHING PATTERN - Cardiovascular Exam Cardiovascular Exam: REGULAR RHYTHM, +S1, +S2 - GI/Abdominal Exam GI & Abdominal Exam: Soft, Normal Bowel Sounds. absent: Tenderness - Extremities Exam Extremities Exam: Normal Capillary Refill. absent: Calf Tenderness, Pedal Edema , Tenderness - Back Exam Back Exam: absent: CVA tenderness (L), CVA tenderness (R) - Neurological Exam Neurological Exam: Alert, Awake, CN II-XII Intact, Normal Gait, Oriented x3 - Psychiatric Exam Psychiatric exam: Agitated - Skin Skin Exam: Dry, Normal Color, Warm Additional comments: firm nodular mass in left breast at 6 o'clock postion TTP 2 open wounds located at nipple and inferior portion of areola Assessment and Plan - Assessment and Plan (Free Text) Plan: 1. Breast abscess Patient signed out AMA I&D with Dr. Harrell was canceled Vancomycin 1 gm IVPB Q12H Zosyn 3.375 gm IVPB Q6H f/u wound, urine and blood culture Percocet 5/325 mg 2 tab Q6H PRN moderate pain Morphine 2 mg IVP Q4H PRN severe pain NS 100 cc/hr ID consult, Dr. Linares, help appreciated 2. Chronic back pain hx of Lumbar discectomy and fusion Percocet 5/325 mg 2 tab Q6H PRN moderate pain Morphine 2 mg IVP Q4H PRN severe pain 3. Bilateral Lower extremity tenderness Bilateral LE venous doppler 4. Prophylactic measure HOLD anticoagulation SCDs contraindicated due to LE tenderness Protonix 40 mg IVP daily colace 100mg PO BID <Niranjan Jain Jr. - Last Filed: 10/13/16 11:25> Objective - Vital Signs/Intake and Output Vital Signs (last 24 hours): Temp Pulse Resp BP Pulse Ox 98.1 F 54 L 20 105/56 L 100 10/11/16 08:27 10/11/16 08:27 10/11/16 08:27 10/11/16 08:27 10/11/16 08:27 - Labs Labs: 10/11/16 08:05 10/11/16 08:05 PT 11.4 SECONDS (9.7-12.2) 10/10/16 12:51 INR 1.0 10/10/16 12:51 APTT 32 SECONDS (21-34) 10/10/16 12:51 Attending/Attestation - Attestation I have personally seen and examined this patient.: Yes I have fully participated in the care of the patient.: Yes I have reviewed all pertinent clinical information, including history, physical exam and plan: Yes Notes (Text): 10/13/16 11:25 Agree with resident note and findings
--- NOTE | 2016-10-11 18:26 | VASCLAB ---
PROCEDURE: Lower Extremity Venous Duplex Exam. HISTORY: le pain PRIORS: None. TECHNIQUE: Bilateral common femoral, femoral, popliteal and posterior tibial, peroneal and great saphenous veins were evaluated. Flow was assessed with color Doppler, compressibility, assessment of phasic flow and augmentation response. Report prepared by GRAHAM Marcano, RVT FINDINGS: RIGHT: 1. Common Femoral Vein: 1.1. Compressibility - Fully compressible: Thrombus - None : Flow - Phasic: Augmentation -Normal: Reflux - None. 2. Femoral Vein: 2.1. Compressibility - Fully compressible: Thrombus - None : Flow - Phasic: Augmentation -Normal: Reflux - None. 3. Popliteal Vein: 3.1. Compressibility - Fully compressible: Thrombus - None : Flow - Phasic: Augmentation -Normal: Reflux - None. 4. Posterior Tibial Vein: 4.1. Compressibility - Fully compressible: Thrombus - None: Flow - Phasic: Augmentation -Normal: Reflux - None. 5. Peroneal Vein: 5.1. Compressibility - Fully compressible: Thrombus - None: Flow - Phasic: Augmentation -Normal: Reflux - None. 6. Great Saphenous Vein: 6.1. Compressibility - Fully compressible: Thrombus - None: Flow - Phasic: Augmentation - Normal: Reflux - None. LEFT: 1. Common Femoral Vein: 1.1. Compressibility - Fully compressible: Thrombus - None: Flow - Phasic: Augmentation -Normal: Reflux - None. 2. Femoral Vein: 2.1. Compressibility - Fully compressible: Thrombus - None: Flow - Phasic: Augmentation -Normal: Reflux - None. 3. Popliteal Vein: 3.1. Compressibility - Fully compressible: Thrombus - None : Flow - Phasic: Augmentation -Normal: Reflux - None. 4. Posterior Tibial Vein: 4.1. Compressibility - Fully compressible: Thrombus - None: Flow - Phasic: Augmentation -Normal: Reflux - None. 5. Peroneal Vein: 5.1. Compressibility - Fully compressible: Thrombus - None: Flow - Phasic: Augmentation -Normal: Reflux - None. 6. Great Saphenous Vein: 6.1. Compressibility - Fully compressible: Thrombus - None: Flow - Phasic: Augmentation - Normal: Reflux - None. OTHER FINDINGS: Right: None significant. Left: None significant. IMPRESSION: Right: No evidence of deep or superficial vein thrombosis of the right lower extremity. Normal valve function noted of the right side. Left: No evidence of deep or superficial vein thrombosis of the left lower extremity. Normal valve function noted of the left side.
== END 2016-10-11 15:30 | disposition left against medical advice (07) | DRG 276 ==
LOC: C.ER 11:26 → C.9E 12:18 → C.3T 12:58
PROVIDERS: ADMIT Surgery; ATTEND Surgery
DX: N61.1 Abscess of the breast and nipple (principal); J40 Bronchitis, not specified as acute or chronic; F12.90 Cannabis use, unspecified, uncomplicated; F17.210 Nicotine dependence, cigarettes, uncomplicated; M51.26 Other intervertebral disc displacement, lumbar region; Z80.3 Family history of malignant neoplasm of breast; Z98.1 Arthrodesis status

== ENCOUNTER 2016-10-31 14:05 | Inpatient (IN) | payer MEDICAID ==
[2016-10-31 14:06] VITALS: BMI 23.1
--- NOTE | 2016-10-31 15:08 | C.PDOC ---
History Of Present Illness 31 year old female presents to ED for I&D of left breast abscess by Dr Harrell. Patient was scheduled to be here around 10am, however states she overslept and arrived to ED in the afternoon. She denies any fever or drainage and finished oral antibiotics. Time Seen by Provider: 10/31/16 14:29 Chief Complaint (Nursing): Abnormal Skin Integrity History Per: Patient History/Exam Limitations: no limitations Quality Of Symptoms: denies: Draining Severity: Mild Recent travel outside of the [place]: No Past Medical History Reviewed: Historical Data, Nursing Documentation, Vital Signs Vital Signs: Last Vital Signs Temp 98.1 F 10/31/16 14:35 Pulse 58 L 10/31/16 14:35 Resp 18 10/31/16 14:35 BP 101/68 10/31/16 14:35 Pulse Ox 99 10/31/16 15:25 - Medical History PMH: Back Problems, Bronchitis Surgical History: Back Surgery (10/11/2015) - [facility] Procedures DRAINAGE OF BILATERAL BREAST, OPEN APPROACH (05/07/16) DRAINAGE OF BILATERAL BREAST, OPEN APPROACH, DIAGNOSTIC (03/27/16) EXCISION OF LEFT BREAST, OPEN APPROACH (09/16/16) EXTRACTION OF CHEST SUBCU/FASCIA, OPEN APPROACH (05/22/16) RESECTION OF LUMBOSACRAL DISC, OPEN APPROACH (10/05/15) TRANSFER CHEST SKIN, EXTERNAL APPROACH (09/16/16) Family History: States: Unknown Family Hx - Social History Hx Tobacco Use: Yes Hx Alcohol Use: No Hx Substance Use: Yes (marijuana) - Immunization History Hx Tetanus Toxoid Vaccination: No Hx Influenza Vaccination: No Hx Pneumococcal Vaccination: No Review Of Systems Except As Marked, All Systems Reviewed And Found Negative. Constitutional: Negative for: Fever, Chills Musculoskeletal: Positive for: Other (left breast abscess, no drainage) Physical Exam - Physical Exam Appears: Non-toxic, No Acute Distress Skin: Warm, Dry, No Rash Head: Atraumatic, Normacephalic Neck: Normal, Normal ROM, Supple Chest: Symmetrical, Other (fluctuance to left breast around 6 o'clock, minimal erythema) Cardiovascular: Rhythm Regular Respiratory: Normal Breath Sounds, No Rales, No Rhonchi, No Wheezing Extremity: Bilateral: Atraumatic Neurological/Psych: Oriented x3, Normal Speech ED Course And Treatment O2 Sat by Pulse Oximetry: 99 (room air) Pulse Ox Interpretation: Normal Medical Decision Making Medical Decision Makin Attempt page to Dr Harrell [phone] Jain who states must contact Dr Harrell [phone] Dr Harrell calls ED and requests admission, consult medicine RAMIRO Jain and keep NPO after midnight Disposition - Disposition Disposition: HOME/ ROUTINE Disposition Time: 16:55 Condition: STABLE - POA Present On Arrival: None - Clinical Impression Clinical Impression: Left breast abscess - PA / HOLTER SCANNING TECHNICIAN / Resident Statement MD/DO has reviewed & agrees with the documentation as recorded. - Scribe Statement The provider has reviewed the documentation as recorded by the Scribe Romeo Castellon All medical record entries made by the Loeribe were at my direction and personally dictated by me. I have reviewed the chart and agree that the record accurately reflects my personal performance of the history, physical exam, medical decision making, and the department course for this patient. I have also personally directed, reviewed, and agree with the discharge instructions and disposition. Decision To Admit - Pt Status Changed To: Hospital Disposition Of: Inpatient - Admit Certification Admit to Inpatient:: After my assessment, the patient will require hospitalization for at least two midnights. This is because of the severity of symptoms shown, intensity of services needed, and/or the medical risk in this patient being treated as an outpatient. - InPatient: Physician Admission Certification: I certify that this patient requires 2 or more midnights of care for the following reason:: Patient with breast abscess for admission and to OR in the morning - . Bed Request Type: Regular Admitting Physician: Barry Harrell Patient Diagnosis: Left breast abscess
--- NOTE | 2016-10-31 18:04 | CP.PCM.CON ---
History of Present Illness - History of Present Illness History of Present Illness: 31 year old female presents to ED for I&D of left breast abscess by Dr Harrell. Patient was scheduled to be here around 10am, however states she overslept and arrived to ED in the afternoon. She denies any fever or drainage and finished oral antibiotics. multiple procedures for breast infection recent cultures neg may need biopsy - Medical History PMH: Back Problems, Bronchitis Surgical History: Back Surgery (10/11/2015) - [facility] Procedures DRAINAGE OF BILATERAL BREAST, OPEN APPROACH (05/07/16) DRAINAGE OF BILATERAL BREAST, OPEN APPROACH, DIAGNOSTIC (03/27/16) EXCISION OF LEFT BREAST, OPEN APPROACH (09/16/16) EXTRACTION OF CHEST SUBCU/FASCIA, OPEN APPROACH (05/22/16) RESECTION OF LUMBOSACRAL DISC, OPEN APPROACH (10/05/15) TRANSFER CHEST SKIN, EXTERNAL APPROACH (09/16/16) Review of Systems - Constitutional Constitutional: As Per HPI - EENT Eyes: absent: As Per HPI, Blind Spots, Blurred Vision, Change in Vision, Decreased Night Vision, Diplopia, Discharge, Dry Eye, Exophthalmos, Floaters, Irritation, Itchy Eyes, Loss of Peripheral Vision, Pain, Photophobia, Requires Corrective Lenses, Sees Flashes, Spots in Vision, Tunnel Vision, Other Visual Disturbances, Loss of Vision, Other Ears: absent: As Per HPI, Decreased Hearing, Ear Discharge, Ear Pain, Tinnitus, Abnormal Hearing, Disequilibrium, Dizziness, Other Nose/Mouth/Throat: absent: As Per HPI, Epistaxis, Nasal Congestion, Nasal Discharge, Nasal Obstruction, Nasal Trauma, Nose Pain, Post Nasal Drip, Sinus Pain, Sinus Pressure, Bleeding Gums, Change in Voice, Dental Pain, Dry Mouth, Dysphagia, Halitosis, Hoarsness, Lip Swelling, Mouth Lesions, Mouth Pain, Odynophagia, Sore Throat, Throat Swelling, Tongue Swelling, Facial Pain, Neck Pain, Neck Mass, Other - Breasts Breasts: absent: As Per HPI, Change in Shape, Mass, Pain, Nipple Discharge, Nipple Inversion, Skin Changes, Swelling, Other - Cardiovascular Cardiovascular: absent: As Per HPI, Acrocyanosis, Chest Pain, Chest Pain at Rest , Chest Pain with Activity, Claudication, Diaphoresis, Dyspnea, Dyspnea on Exertion, Edema, Irregular Heart Rhythm, Pain Radiating to Arm/Neck/Jaw, Leg Edema, Leg Ulcers, Lightheadedness, Orthopnea, Palpitations, Paroxysmal Nocturnal Dyspnea, Pedal Edema, Radiating Pain, Rapid Heart Rate, Slow Heart Rate, Syncope, Other - Respiratory Respiratory: absent: As Per HPI, Cough, Dyspnea, Hemoptysis, Dyspnea on Exertion , Wheezing, Snoring, Stridor, Pain on Inspiration, Chest Congestion, Excessive Mucous Production, Change in Mucous Color, Pain with Coughing, Other - Gastrointestinal Gastrointestinal: absent: As Per HPI, Abdominal Pain, Belching, Bloating, Change in Bowel Habits, Change in Stool Character, Coffee Ground Emesis, Constipation, Cramping, Diarrhea, Dyspepsia, Dysphagia, Early Satiety, Excessive Flatus, Fecal Incontinence, Heartburn, Hematemesis, Hematochezia, Loose Stools, Melena, Nausea, Odynophagia, Temesmus, Vomiting, Other - Genitourinary Genitourinary: absent: As Per HPI, Change in Urinary Stream, Difficulty Urinating, Dysuria, Flank Pain, Hematuria, Pyuria, Nocturia, Urinary Incontinence, Urinary Frequency, Urinary Hesitance, Urinary Urgency, Voiding Freq/Small Amts, Freq UTI, Hx Renal/Bladder Calculi, Hx /Renal Surgery, Bladder Distension, Other - Reproductive: Female Reproductive:Female: absent: As Per HPI, Amenorrhea, Amenorrhea/ Control, Currently Menstual, Cycle <21 Days, Cycle >35 Days, Cycle Variable, Menses 1-7 Days, Menses >/= 8 Days, Menses Variable, Cycle > 4 Weeks Between, No Menses for 6 Months, Heavy Menses, Light Menses, Normal Menses, Spotting Between Cycles , S/P Hysterectomy, Menopausal, Post Menopausal, Premenarche, Abnormal Vaginal Bleeding, Dysmenorrhea, Dyspareunia, Genital Lesions, Genital Pruritis, Pelvic Pain, Prolapse Symptoms, Sexual Dysfunction, Vaginal Discharge, Vaginal Dryness , Vaginal Odor, Vaginal Pruritis, Other - Menstruation Menstruation: absent: As Per HPI, Amenorrhea, Amenorrhea/ Control, Currently Menstual, Cycle <21 Days, Cycle >35 Days, Cycle Variable, Menses 1-7 Days, Menses >/= 8 Days, Menses Variable, Cycle > 4 Weeks Between, No Menses for 6 Months, Heavy Menses, Light Menses, Normal Menses, Spotting Between Cycles , S/P Hysterectomy, Menopausal, Post Menopausal, Premenarche, Abnormal Vaginal Bleeding, Dysmenorrhea, Other - Musculoskeletal Musculoskeletal: absent: As Per HPI, Abnormal Gait, Arthralgias, Atrophy, Back Pain, Deformity, Joint Swelling, Limited Range of Motion, Loss of Height, Muscle Cramps, Muscle Weakness, Myalgias, Neck Pain, Numbness, Radiating Pain into Limb, Stiffness, Tingling, Other - Integumentary Integumentary: As Per HPI - Neurological Neurological: absent: As Per HPI, Abnormal Gait, Abnormal Hearing, Abnormal Movements, Abnormal Speech, Behavioral Changes, Burning Sensations, Confusion, Convulsions, Disequilibrium, Dizziness, Numbness, Focal Weakness, Frequent Falls , Headaches, Lack of Coordination, Loss of Vision, Memory Loss, Paresthesias, Radicular Pain, Restless Legs, Sensory Deficit, Syncope, Tingling, Tremor, Vertigo, Weakness, Other Visual Disturbances, Other - Psychiatric Psychiatric: absent: As Per HPI, Abnormal Sleep Pattern, Anhedonia, Anxiety, Auditory Hallucinations, Behavioral Changes, Change in Appetite, Change in Libido, Confusion, Depression, Difficulty Concentrating, Hallucinations, Homicidal Ideation, Hopelessness, Irritability, Memory Loss, Mood Swings, Panic Attacks, Paranoia, Suicidal Ideation, Visual Hallucinations, Tactile Hallucinations, Other - Endocrine Endocrine: absent: As Per HPI, Change in Body Appearance, Change in Libido, Cold Intolorance, Deepening of Voice, Excessive Sweating, Fatigue, Flushing, Heat Intolorance, Increase in Ring/Shoe/Hat Size, Palpitations, Polydipsia, Polyphagia, Polyuria, Other - Hematologic/Lymphatic Hematologic: absent: As Per HPI, Easy Bleeding, Easy Bruising, Lymphadenopathy, Other Past Patient History - Infectious Disease Hx of Infectious Diseases: None - Tetanus Immunizations Tetanus Immunization: Up to Date - Past Medical History & Family History Past Medical History?: Yes - Past Social History Smoking Status: Light Smoker < 10 Cigarettes Daily - CARDIAC Hx Hypertension: No - PULMONARY Hx Bronchitis: Yes - NEUROLOGICAL Hx Seizures: No - HEENT Hx HEENT Problems: No - RENAL Hx Chronic Kidney Disease: No - ENDOCRINE/METABOLIC Hx Endocrine Disorders: No - HEMATOLOGICAL/ONCOLOGICAL Hx Anemia: No Hx Human Immunodeficiency Virus (HIV): No - INTEGUMENTARY Hx Dermatological Problems: Yes Other/Comment: PT. FOR SURGERY 06/01/16-DX:LEFT BREAST MASS. - MUSCULOSKELETAL/RHEUMATOLOGICAL Hx Musculoskeletal Disorders: Yes Hx Falls: No Other/Comment: hx back surgery - GASTROINTESTINAL Hx Gastrointestinal Disorders: No - GENITOURINARY/GYNECOLOGICAL Hx Sexually Transmitted Disorders: No - PSYCHIATRIC Hx Substance Use: Yes (marijuana) - SURGICAL HISTORY Hx Surgeries: Yes Hx Breast Biopsy: Yes Hx Orthopedic Surgery: Yes (LUMBAR LAMINECTOMY) Other/Comment: bilateral breast surgery march,Back Surgery 10/11/15. Lt breast surgery 09/17/16 - ANESTHESIA Hx Anesthesia: Yes Hx Anesthesia Reactions: No Hx Malignant Hyperthermia: No Meds Allergies/Adverse Reactions: Allergies Allergy/AdvReac Type Severity Reaction Status Date / Time No Known Allergies Allergy Verified 09/16/16 13:20 Physical Exam - Constitutional Appears: Non-toxic, Chronically Ill - Head Exam Head Exam: NORMOCEPHALIC - Eye Exam Eye Exam: absent: Scleral icterus - ENT Exam ENT Exam: Mucous Membranes Dry, Normal External Ear Exam - Neck Exam Neck exam: Negative for: Lymphadenopathy - Respiratory Exam Respiratory Exam: Decreased Breath Sounds, Clear to Auscultation Bilateral - Cardiovascular Exam Cardiovascular Exam: REGULAR RHYTHM, +S1, +S2 - GI/Abdominal Exam GI & Abdominal Exam: Diminished Bowel Sounds, Soft. absent: Tenderness - Rectal Exam Rectal Exam: Deferred - Exam Exam: NORMAL INSPECTION - Extremities Exam Extremities exam: Negative for: calf tenderness, pedal edema - Back Exam Back exam: absent: CVA tenderness (L), CVA tenderness (R) - Neurological Exam Neurological exam: Alert, CN II-XII Intact, Oriented x3, Reflexes Normal - Psychiatric Exam Psychiatric exam: Normal Mood - Skin Skin Exam: Dry Results - Vital Signs Recent Vital Signs: Last Vital Signs Temp 98.1 F 10/31/16 14:35 Pulse 58 L 10/31/16 14:35 Resp 18 10/31/16 14:35 BP 101/68 10/31/16 14:35 Pulse Ox 99 10/31/16 17:06 Assessment & Plan (1) Left breast abscess Status: Acute (2) Abscess of breast Status: Acute (3) Breast abscess Status: Acute
[2016-10-31] MEDS: Cefepime IV 1 gm in Dextrose 1 GM/50 ML BAG IVPB SCH (19:15)
--- NOTE | 2016-10-31 21:33 | CP.PCM.CON ---
History of Present Illness - History of Present Illness History of Present Illness: PGY-[address] Jain HPI: 31F with past medical history of recurrent breast abscesses and lumbar disc disease who presents to the hospital for complaint of left breast abscess. Patient has had this problem numerous times in the past. She admits history of "10+" I&D of breast abscesses. Patient reports that last I&D was in September. Since then, her L breast began to draining whitish-off white discharge. Patient states there is pain present in the left breast. She rates the pain as 6 /10 in severity, located around the nipple. She described the pain as constant and throbbing in left breast without radiation. Pain medication relieves the pain temporarily while certain movement, positions, and palpations exacerbates it. She denies subjective fever/chills, CP, palpitations, abd pain, nausea/ vomiting, diarrhea, constipation, incontinence, dizziness, and urinary symptoms. PMD: Dr. Shea Past medical history: breast abscess, bulging disc disease Allergies: NKDA Past surgical history: Lumbar discectomy and fusion, breast biopsy, I&Ds Family history: mother: lupus, cervical cancer, CAD; Aunt: from breast cancer; father unknown; sisters (5) and brother (1) - healthy Social history: lives alone, occasional alcohol use, smokes half pack a day, smokes marijuana to help with chronic back pain Review of Systems - Constitutional Constitutional: absent: Chills, Fever - EENT Eyes: absent: Change in Vision Ears: absent: Decreased Hearing - Breasts Breasts: Pain (around nipple on left, ), Swelling. absent: Nipple Discharge, Skin Changes Additional comments: no drainage - Cardiovascular Cardiovascular: absent: Chest Pain, Dyspnea - Respiratory Respiratory: absent: Cough, Dyspnea - Gastrointestinal Gastrointestinal: absent: Abdominal Pain, Nausea, Vomiting - Genitourinary Genitourinary: absent: Dysuria - Musculoskeletal Musculoskeletal: absent: Numbness, Tingling - Integumentary Integumentary: Skin Pain, Wounds - Neurological Neurological: absent: Tingling, Weakness Past Patient History - Infectious Disease Hx of Infectious Diseases: None - Tetanus Immunizations Tetanus Immunization: Up to Date - Past Medical History & Family History Past Medical History?: Yes - Past Social History Smoking Status: Light Smoker < 10 Cigarettes Daily - CARDIAC Hx Hypertension: No - PULMONARY Hx Bronchitis: Yes - NEUROLOGICAL Hx Seizures: No - HEENT Hx HEENT Problems: No - RENAL Hx Chronic Kidney Disease: No - ENDOCRINE/METABOLIC Hx Endocrine Disorders: No - HEMATOLOGICAL/ONCOLOGICAL Hx Anemia: No Hx Human Immunodeficiency Virus (HIV): No - INTEGUMENTARY Hx Dermatological Problems: Yes Other/Comment: PT. FOR SURGERY 11/08/15-DX:LEFT BREAST MASS. - MUSCULOSKELETAL/RHEUMATOLOGICAL Hx Musculoskeletal Disorders: Yes Hx Falls: No Other/Comment: hx back surgery - GASTROINTESTINAL Hx Gastrointestinal Disorders: No - GENITOURINARY/GYNECOLOGICAL Hx Sexually Transmitted Disorders: No - PSYCHIATRIC Hx Substance Use: Yes (marijuana) - SURGICAL HISTORY Hx Surgeries: Yes Hx Breast Biopsy: Yes Hx Orthopedic Surgery: Yes (LUMBAR LAMINECTOMY) Other/Comment: bilateral breast surgery march,Back Surgery 10/11/15. Lt breast surgery 09/17/16 - ANESTHESIA Hx Anesthesia: Yes Hx Anesthesia Reactions: No Hx Malignant Hyperthermia: No Meds Allergies/Adverse Reactions: Allergies Allergy/AdvReac Type Severity Reaction Status Date / Time No Known Allergies Allergy Verified 09/16/16 13:20 - Medications Medications: Current Medications Cefepime HCl (Maxipime Iv 1 Gm Premix) 1 gm in 50 mls @ 100 mls/hr IVPB Q24H [facility] Last Admin: 10/31/16 19:15 Dose: 100 mls/hr Physical Exam - Constitutional Appears: Non-toxic, No Acute Distress - Head Exam Head Exam: ATRAUMATIC, NORMAL INSPECTION, NORMOCEPHALIC - Eye Exam Eye Exam: EOMI Pupil Exam: PERRL - ENT Exam ENT Exam: Mucous Membranes Moist - Respiratory Exam Respiratory Exam: Clear to Auscultation Bilateral, NORMAL BREATHING PATTERN. absent: Rales, Rhonchi, Wheezes - Cardiovascular Exam Cardiovascular Exam: REGULAR RHYTHM, +S1, +S2 - GI/Abdominal Exam GI & Abdominal Exam: Normal Bowel Sounds, Soft. absent: Tenderness - Extremities Exam Extremities exam: Positive for: normal inspection. Negative for: pedal edema - Back Exam Back exam: absent: CVA tenderness (L), CVA tenderness (R) - Neurological Exam Neurological exam: Alert, Oriented x3 - Skin Skin Exam: Dry, Normal Color, Warm Results - Vital Signs Recent Vital Signs: Last Vital Signs Temp 98.7 F 10/31/16 18:20 Pulse 73 10/31/16 18:20 Resp 20 10/31/16 18:20 BP 113/70 10/31/16 18:20 Pulse Ox 97 10/31/16 18:20 Assessment & Plan - Assessment and Plan (Free Text) Assessment: 31F with past medical history of recurrent breast abscesses and lumbar disc disease, presenting for I&D with Dr. Harrell tomorrow 11/01/16 on left breast abscess. Plan: 1. Breast abscess I&D with Dr. Harrell scheduled for tomorrow (10/31/16) f/u pre-op CBC, CMP, PT/PTT, PCXR, Urine B-HCG in AM ID consult, Dr. Linares, help appreciated - Cefepime 1gm IV Q24H - f/u wound culture 2. Chronic back pain hx of Lumbar discectomy and fusion Pt denies pain at this time Motrin 600mg PO Q6H PRN 3. Prophylactic measure HOLD anticoagulation SCDs
[2016-11-01 06:28] LABS: BASO % 0.4 % (0.0-2.0); EOS # 0.3 K/uL (0.0-0.7); EOS % 3.5 % (0.0-4.0); HEMATOCRIT 37.5 % (34.0-47.0); LYMPH # 2.8 K/uL (1.0-4.3); LYMPH % 38.2 % (20.0-40.0); MEAN CELL VOLUME 87.7 fL (81.0-99.0); MEAN CORPUSCULAR HEMOGLOBIN 29.2 pg (27.0-31.0); MEAN CORPUSCULAR HGB CONC 33.2 g/dL (33.0-37.0); MEAN PLATELET VOLUME 8.3 fL (7.2-11.7); MONO # 0.6 K/uL (0.0-0.8); MONO % 8.6 % (0.0-10.0); NRBC % 0.1 % (0.0-2.0); RED CELL DISTRIBUTION WIDTH 16.3 % (11.5-14.5); WHITE BLOOD COUNT 7.3 K/uL (4.8-10.8)
[2016-11-01 06:35] LABS: CHLORIDE 104 mmol/L (98-107)
[2016-11-01 06:36] LABS: POTASSIUM 4.1 mmol/L (3.6-5.2); SODIUM 136 mmol/L (132-148)
[2016-11-01 06:38] LABS: ALB/GLOB RATIO 1.3 (1.0-2.1); ALKALINE PHOSPHATASE 49 U/L (38-126); AST/SGOT 18 U/L (14-36); BILIRUBIN,TOTAL 0.6 mg/dL (0.2-1.3); BLOOD UREA NITROGEN 14 mg/dL (7-17); CARBON DIOXIDE 23 mmol/L (22-30); GFR AFRICAN-AMERICAN > 60; GLUCOSE,RANDOM 96 mg/dL (65-105); INR 1.1; TOTAL PROTEIN 7.2 g/dL (6.3-8.3)
[2016-11-01 06:39] LABS: ALT/SGPT 13 U/L (9-52); CALCIUM 8.6 mg/dl (8.6-10.4)
--- NOTE | 2016-11-01 11:27 | RAD ---
HISTORY: pre-op COMPARISON: 03/27/2016 FINDINGS: LUNGS: No active pulmonary disease. PLEURA: No significant pleural effusion identified, no pneumothorax apparent. CARDIOVASCULAR: Normal. OSSEOUS STRUCTURES: No significant abnormalities. VISUALIZED UPPER ABDOMEN: Normal. OTHER FINDINGS: None. IMPRESSION: No active disease.
[2016-11-01] MEDS ORDERED: Lactated Ringer's 1,000 ML IV ONE ×2 (13:58)
[2016-11-01] MEDS ORDERED: ceFAZolin IV 1 gm in Dextrose 1 GM/50 ML BAG IVPB ONE (14:17)
[2016-11-01] MEDS ORDERED: Midazolam 2 MG/2 ML VIAL ONE (14:23)
[2016-11-01] MEDS ORDERED: Propofol 10 mg/ml Inj (20 ML) ONE (14:23)
[2016-11-01] MEDS ORDERED: Bupivacaine HCl 0.25% PF (10 ml) Inj ONE (14:35)
[2016-11-01] MEDS ORDERED: Bacitracin 500 Units/gm Oint Foilpak UD ONE (14:49)
[2016-11-01] MEDS ORDERED: HYDROmorphone 0.5 mg/0.5 ml ISec IVP PRN (14:57)
[2016-11-01] MEDS ORDERED: Lactated Ringer's 1,000 ML IV SCH (15:00)
[2016-11-01] MEDS ORDERED: Oxycodone/Acetaminophen 5/325 mg Tab PO PRN (15:02)
--- NOTE | 2016-11-01 15:10 | CP.PCM.PN ---
Subjective - Date & Time of Evaluation Date of Evaluation: 11/01/16 Time of Evaluation: 09:00 - Subjective Subjective: 31F with past medical history of recurrent breast abscesses presents to the hospital for complaint of left breast abscess- admits history of "10+" I&D of breast abscesses. Past medical history: breast abscess, bulging disc disease Allergies: NKDA Past surgical history: Lumbar discectomy and fusion, breast biopsy, I&Ds Family history: mother: lupus, cervical cancer, CAD; Aunt: from breast cancer; father unknown; sisters (5) and brother (1) - healthy Social history: lives alone, occasional alcohol use, smokes half pack a day, smokes marijuana to help with chronic back pain Objective - Vital Signs/Intake and Output Vital Signs (last 24 hours): Temp Pulse Resp BP Pulse Ox 98.3 F 61 20 148/85 98 11/01/16 08:00 11/01/16 08:00 11/01/16 08:00 11/01/16 08:00 11/01/16 08:00 Intake and Output: 11/01/16 11/01/16 06:59 18:59 Intake Total 0 Balance 0 - Medications Medications: Current Medications Hydromorphone HCl (Dilaudid) 0.5 mg IVP Q15M PRN PRN Reason: Pain, moderate (4-7) Stop: 11/01/16 16:58 Cefepime HCl (Maxipime Iv 1 Gm Premix) 1 gm in 50 mls @ 100 mls/hr IVPB Q24H [facility] Last Admin: 10/31/16 19:15 Dose: 100 mls/hr Lactated Ringer's (Lactated Ringer's) 1,000 mls @ 100 mls/hr IV .Q10H [facility] Ibuprofen (Motrin Tab) 600 mg PO Q6 [facility] Last Admin: 11/01/16 13:58 Dose: Not Given Metoclopramide HCl (Reglan) 10 mg IVP ONCE PRN PRN Reason: Nausea/Vomiting Stop: 11/01/16 16:58 Oxycodone/Acetaminophen (Percocet 5/325 Mg Tab) 2 tab PO Q4H PRN PRN Reason: pain Stop: 11/04/16 15:03 - Labs Labs: 11/01/16 06:15 11/01/16 06:15 PT 11.8 SECONDS (9.7-12.2) 11/01/16 06:15 INR 1.1 11/01/16 06:15 APTT 33 SECONDS (21-34) 11/01/16 06:15 - Constitutional Appears: Non-toxic, Chronically Ill - Head Exam Head Exam: NORMOCEPHALIC - Eye Exam Eye Exam: absent: Scleral icterus - ENT Exam ENT Exam: Mucous Membranes Dry - Neck Exam Neck Exam: absent: Lymphadenopathy - Respiratory Exam Respiratory Exam: Decreased Breath Sounds - Cardiovascular Exam Cardiovascular Exam: REGULAR RHYTHM - GI/Abdominal Exam GI & Abdominal Exam: Distended, Soft Assessment and Plan (1) Left breast abscess Status: Acute (2) Abscess of breast Status: Acute (3) Breast abscess Status: Acute - Assessment and Plan (Free Text) Plan: CONSIDER BIOPSY IF NOT DONE WELL SPECIAL IMAGING INCLUDING MAMMO./ MRI
[2016-11-01 15:21] VITALS: O2SAT 100
--- NOTE | 2016-11-01 15:31 | OP ---
PROCEDURE DATE: 11/01/2016 PREOPERATIVE DIAGNOSIS: Left breast abscess. POSTOPERATIVE DIAGNOSIS: Left breast abscess. PROCEDURES PERFORMED: Incision and drainage of left breast abscess with debridement, partial tissue transfer closure. SURGEON: Barry Harrell MD. ANESTHESIA: General. ESTIMATED BLOOD LOSS: 20 mL. POSTOPERATIVE CONDITION: Stable. PROCEDURE: The patient taken back to the OR with a recurrent abscess of the left breast. The breast was prepped and draped ____. The wound was reopened and a small amount of pus was drained. It was meticulously irrigated with saline solution and debrided. Bleeding was controlled using a Bovie. A chest wall blood vessel was repaired. A partial tissue transfer closure was performed and the centra l portion was packed open with iodoform packing. The patient tolerated the procedure well and return ed to recovery room in stable condition. Barry Harrell MD cc: [id number] TT: 11/01/2016 15:30:40 sd
--- NOTE | 2016-11-01 15:41 | CP.PCM.PN ---
Subjective - Date & Time of Evaluation Date of Evaluation: 11/01/16 Time of Evaluation: 08:00 - Subjective Subjective: PGY1 Medicine note for Dr. Jain Patient seen and examined at bedside. Patient was NPO overnight for I&D with Dr. Harrell today 11/01. She reported her pain was well controlled and she was able to sleep through the night. She denies subjective fever/chills, CP, palpitations, abd pain, nausea/vomiting, diarrhea, constipation, incontinence, dizziness, and urinary symptoms. Objective - Vital Signs/Intake and Output Vital Signs (last 24 hours): Temp Pulse Resp BP Pulse Ox 97.8 F 46 L 15 96/46 L 100 11/01/16 14:55 11/01/16 15:30 11/01/16 15:30 11/01/16 15:30 11/01/16 15:30 Intake and Output: 11/01/16 11/01/16 06:59 18:59 Intake Total 0 Balance 0 - Medications Medications: Current Medications Hydromorphone HCl (Dilaudid) 0.5 mg IVP Q15M PRN PRN Reason: Pain, moderate (4-7) Stop: 11/01/16 16:58 Last Admin: 11/01/16 15:18 Dose: 0.5 mg Cefepime HCl (Maxipime Iv 1 Gm Premix) 1 gm in 50 mls @ 100 mls/hr IVPB Q24H [facility] Last Admin: 10/31/16 19:15 Dose: 100 mls/hr Lactated Ringer's (Lactated Ringer's) 1,000 mls @ 100 mls/hr IV .Q10H [facility] Ibuprofen (Motrin Tab) 600 mg PO Q6 [facility] Last Admin: 11/01/16 13:58 Dose: Not Given Metoclopramide HCl (Reglan) 10 mg IVP ONCE PRN PRN Reason: Nausea/Vomiting Stop: 11/01/16 16:58 Oxycodone/Acetaminophen (Percocet 5/325 Mg Tab) 2 tab PO Q4H PRN PRN Reason: pain Stop: 11/04/16 15:03 - Labs Labs: 11/01/16 06:15 11/01/16 06:15 PT 11.8 SECONDS (9.7-12.2) 11/01/16 06:15 INR 1.1 11/01/16 06:15 APTT 33 SECONDS (21-34) 11/01/16 06:15 - Constitutional Appears: Non-toxic, No Acute Distress - Head Exam Head Exam: ATRAUMATIC, NORMAL INSPECTION, NORMOCEPHALIC - Eye Exam Eye Exam: Normal appearance. absent: Conjunctival injection, Scleral icterus Pupil Exam: NORMAL ACCOMODATION - ENT Exam ENT Exam: Mucous Membranes Moist - Neck Exam Neck Exam: Full ROM, Normal Inspection - Respiratory Exam Respiratory Exam: Clear to Ausculation Bilateral, NORMAL BREATHING PATTERN. absent: Accessory Muscle Use, Rales, Rhonchi, Wheezes, Respiratory Distress - Cardiovascular Exam Cardiovascular Exam: REGULAR RHYTHM, RRR, +S1, +S2. absent: Murmur - GI/Abdominal Exam GI & Abdominal Exam: Soft, Normal Bowel Sounds. absent: Firm, Guarding, Rigid, Tenderness - Rectal Exam Rectal Exam: Deferred - Extremities Exam Extremities Exam: Normal Capillary Refill, Normal Inspection. absent: Pedal Edema, Tenderness - Back Exam Back Exam: NORMAL INSPECTION. absent: rash noted, tenderness - Neurological Exam Neurological Exam: Alert, Awake, Oriented x3 - Psychiatric Exam Psychiatric exam: Normal Affect, Normal Mood - Skin Skin Exam: Dry, Intact, Normal Color, Warm Additional comments: L breast noted to have open site non draining, non erythematous, +fluctuant by 6oclock Assessment and Plan - Assessment and Plan (Free Text) Assessment: 31F PMHx recurrent breast abscesses and lumbar disc disease, presenting for L breast abscess I&D with Dr. Harrell Plan: 1. Breast abscess I&D with Dr. Harrell today 11/01 ID consult, Dr. Linares, marco paige - Cefepime 1gm IV Q24H - prelim wound culture negative Pain management as per Dr. Harrell 2. Chronic back pain hx of Lumbar discectomy and fusion Pt denies pain at this time Motrin 600mg PO Q6H PRN 3. Prophylactic measure Reglan 10mg IVP PRN for nausea/vomiting LR @ 100cc/hr SCDs Regular diet PT Plan discussed with Dr. Cristobal Ortega PGY1
[2016-11-01 17:34] VITALS: BP 105/65; PULSE 54; RESP 20; TEMP 97.3
[2016-11-01] MEDS: Cefepime IV 1 gm in Dextrose 1 GM/50 ML BAG IVPB SCH (18:30)
--- NOTE | 2016-11-29 10:50 | CARD ---
APPROVED REPORT EKG Measurement Heart [id number] [id number] [id number] <Conclusion> Sinus bradycardia Otherwise normal ECG
== END 2016-11-01 18:45 | disposition home or self-care (01) | DRG 276 ==
LOC: C.ER 14:05 → C.9E 16:02 → C.3T 16:49
PROVIDERS: ADMIT Surgery; ATTEND Surgery
PROC: 0H9U0ZZ Drainage of Left Breast, Open Approach (ICD-10-PCS; principal; 2016-11-01 13:30)
DX: N61.1 Abscess of the breast and nipple (principal); F17.210 Nicotine dependence, cigarettes, uncomplicated; F12.90 Cannabis use, unspecified, uncomplicated; G89.29 Other chronic pain; M51.9 Unspecified thoracic, thoracolumbar and lumbosacral intervertebral disc disorder; Z98.1 Arthrodesis status

== ENCOUNTER 2016-12-25 12:44 | Inpatient (IN) | payer MEDICAID ==
[2016-12-25 12:44] VITALS: BMI 23.1
[2016-12-25 12:51] VITALS: RESP 18
[2016-12-25] MEDS ORDERED: Sodium Chloride 0.9% 1,000 ML IV ONE (13:42)
--- NOTE | 2016-12-25 14:13 | C.PDOC ---
History Of Present Illness 31-year-old female, presents to the emergency department, sent by Dr Harrell to be admitted for breast abscess. Patient denies fevers, nausea/vomiting, or any other associated symptoms. No other complaints at this time. Time Seen by Provider: 12/25/16 13:41 Chief Complaint (Nursing): Abnormal Skin Integrity History Per: Patient History/Exam Limitations: no limitations Onset/Duration Of Symptoms: Days Current Symptoms Are (Timing): Still Present Quality Of Symptoms: Painful Severity: Mild Recent travel outside of the [place]: No Past Medical History Reviewed: Historical Data, Nursing Documentation, Vital Signs Vital Signs: Last Vital Signs Temp 98.3 F 12/25/16 12:51 Pulse 73 12/25/16 12:51 Resp 18 12/25/16 12:51 BP 109/57 L 12/25/16 12:51 Pulse Ox 100 12/25/16 14:45 - Medical History PMH: Back Problems, Bronchitis Surgical History: Back Surgery (10/11/2015) - [facility] Procedures DRAINAGE OF BILATERAL BREAST, OPEN APPROACH (05/07/16) DRAINAGE OF BILATERAL BREAST, OPEN APPROACH, DIAGNOSTIC (03/27/16) DRAINAGE OF LEFT BREAST, OPEN APPROACH (10/31/16) EXCISION OF LEFT BREAST, OPEN APPROACH (09/16/16) EXTRACTION OF CHEST SUBCU/FASCIA, OPEN APPROACH (05/22/16) RESECTION OF LUMBOSACRAL DISC, OPEN APPROACH (10/05/15) TRANSFER CHEST SKIN, EXTERNAL APPROACH (09/16/16) Family History: States: No Known Family Hx - Social History Hx Tobacco Use: Yes Hx Alcohol Use: No Hx Substance Use: Yes (marijuana) - Immunization History Hx Tetanus Toxoid Vaccination: No Hx Influenza Vaccination: No Hx Pneumococcal Vaccination: No Review Of Systems Except As Marked, All Systems Reviewed And Found Negative. Constitutional: Negative for: Fever Gastrointestinal: Negative for: Nausea, Vomiting Neurological: Negative for: Weakness, Numbness, Headache, Dizziness Physical Exam - Physical Exam Appears: Non-toxic, No Acute Distress Skin: Warm, Dry, Other (Left breast: 3 o clock position with mild tenderness and incision site. ) Eye(s): bilateral: Normal Inspection Oral Mucosa: Moist Cardiovascular: Rhythm Regular Respiratory: Normal Breath Sounds Extremity: Normal ROM Neurological/Psych: Oriented x3 Gait: Steady ED Course And Treatment - Laboratory Results Result Diagrams: 12/25/16 14:11 12/25/16 14:11 Lab Interpretation: Normal Urine POC: Negative O2 Sat by Pulse Oximetry: 100 Pulse Ox Interpretation: Normal Progress Note: Treated with IVF NSS Reassessment Condition: Unchanged - Physician Consult Information Physician Contacted: Barry Harrell Outcome Of Conversation: admit to OR Disposition Discussed With : Barry Harrell Doctor Will See Patient In The: Hospital - Disposition Disposition: HOSPITALIZED Disposition Time: 15:00 Condition: STABLE - POA Present On Arrival: None - Clinical Impression Clinical Impression: Abscess, Breast abscess - Scribe Statement The provider has reviewed the documentation as recorded by the Scribe (Carlton Aguirre) All medical record entries made by the Scribe were at my direction and personally dictated by me. I have reviewed the chart and agree that the record accurately reflects my personal performance of the history, physical exam, medical decision making, and the department course for this patient. I have also personally directed, reviewed, and agree with the discharge instructions and disposition.
[2016-12-25 14:17] LABS: HCG,QUALITATIVE URINE NEGATIVE (NEGATIVE)
[2016-12-25 14:20] LABS: PROTHROMBIN TIME 10.8 SECONDS (9.7-12.2)
[2016-12-25 14:21] LABS: SQUAMOUS EPITHIAL 2 /hpf (0-5); URINE BILIRUBIN NEGATIVE (NEGATIVE); URINE BLOOD NEGATIVE (NEGATIVE); URINE CLARITY Clear (Clear); URINE COLOR Yellow (YELLOW); URINE GLUCOSE (UA) NORMAL (Normal); URINE LEUKOCYTE ESTERASE NEG Leu/uL (Negative); URINE NITRATE NEGATIVE (NEGATIVE); URINE PROTEIN NEGATIVE (NEGATIVE); URINE UROBILINOGEN NORMAL mg/dL (0.2-1.0)
[2016-12-25 14:31] LABS: ALBUMIN 4.2 g/dL (3.5-5.0)
[2016-12-25 14:33] LABS: GFR AFRICAN-AMERICAN > 60; GFR NON-AFRICAN AMERICAN > 60
[2016-12-25 14:34] LABS: ALB/GLOB RATIO 1.2 (1.0-2.1); ALT/SGPT 25 U/L (9-52); AST/SGOT 34 U/L (14-36); BLOOD UREA NITROGEN 11 mg/dL (7-17); CALCIUM 8.8 mg/dl (8.6-10.4)
[2016-12-25 14:38] LABS: BASO % 0.5 % (0.0-2.0); EOS # 0.2 K/uL (0.0-0.7); HEMOGLOBIN 12.8 g/dL (11.0-16.0); LYMPH # 2.7 K/uL (1.0-4.3); LYMPH % 37.4 % (20.0-40.0); MEAN CELL VOLUME 88.3 fL (81.0-99.0); MEAN CORPUSCULAR HEMOGLOBIN 28.9 pg (27.0-31.0); MEAN CORPUSCULAR HGB CONC 32.7 g/dL (33.0-37.0); MEAN PLATELET VOLUME 8.2 fL (7.2-11.7); MONO # 0.6 K/uL (0.0-0.8); MONO % 7.6 % (0.0-10.0); NEUT # 3.7 K/uL (1.8-7.0); NEUT % 51.5 % (50.0-75.0); NRBC % 0.1 % (0.0-2.0); RBC 4.44 Mil/uL (3.80-5.20); RED CELL DISTRIBUTION WIDTH 14.9 % (11.5-14.5); WHITE BLOOD COUNT 7.2 K/uL (4.8-10.8)
[2016-12-25 16:09] VITALS: BP 98/53; PULSE 65; TEMP 98.4; O2SAT 99
[2016-12-25] MEDS ORDERED: Lidocaine 1% Inj (20ml) ONE (16:17)
[2016-12-25] MEDS ORDERED: ceFAZolin IV 1 gm in Dextrose 0 GM/0 ML BAG IVPB ONE (16:17)
[2016-12-25] MEDS ORDERED: Bupivacaine HCl 0.25% PF (10 ml) Inj ONE (16:17)
--- NOTE | 2016-12-25 17:08 | CP.PCM.CON ---
History of Present Illness - History of Present Illness History of Present Illness: ID consult requested for recurrent breast abscess chart reviewed previous biopsies neg for malignacy pt c/o pain IV antibiotics started Review of Systems - Constitutional Constitutional: As Per HPI - EENT Eyes: absent: As Per HPI, Blind Spots, Blurred Vision, Change in Vision, Decreased Night Vision, Diplopia, Discharge, Dry Eye, Exophthalmos, Floaters, Irritation, Itchy Eyes, Loss of Peripheral Vision, Pain, Photophobia, Requires Corrective Lenses, Sees Flashes, Spots in Vision, Tunnel Vision, Other Visual Disturbances, Loss of Vision, Other Ears: absent: As Per HPI, Decreased Hearing, Ear Discharge, Ear Pain, Tinnitus, Abnormal Hearing, Disequilibrium, Dizziness, Other Nose/Mouth/Throat: absent: As Per HPI, Epistaxis, Nasal Congestion, Nasal Discharge, Nasal Obstruction, Nasal Trauma, Nose Pain, Post Nasal Drip, Sinus Pain, Sinus Pressure, Bleeding Gums, Change in Voice, Dental Pain, Dry Mouth, Dysphagia, Halitosis, Hoarsness, Lip Swelling, Mouth Lesions, Mouth Pain, Odynophagia, Sore Throat, Throat Swelling, Tongue Swelling, Facial Pain, Neck Pain, Neck Mass, Other - Breasts Breasts: absent: As Per HPI, Change in Shape, Mass, Pain, Nipple Discharge, Nipple Inversion, Skin Changes, Swelling, Other - Cardiovascular Cardiovascular: absent: As Per HPI, Acrocyanosis, Chest Pain, Chest Pain at Rest , Chest Pain with Activity, Claudication, Diaphoresis, Dyspnea, Dyspnea on Exertion, Edema, Irregular Heart Rhythm, Pain Radiating to Arm/Neck/Jaw, Leg Edema, Leg Ulcers, Lightheadedness, Orthopnea, Palpitations, Paroxysmal Nocturnal Dyspnea, Pedal Edema, Radiating Pain, Rapid Heart Rate, Slow Heart Rate, Syncope, Other - Respiratory Respiratory: absent: As Per HPI, Cough, Dyspnea, Hemoptysis, Dyspnea on Exertion , Wheezing, Snoring, Stridor, Pain on Inspiration, Chest Congestion, Excessive Mucous Production, Change in Mucous Color, Pain with Coughing, Other - Gastrointestinal Gastrointestinal: absent: As Per HPI, Abdominal Pain, Belching, Bloating, Change in Bowel Habits, Change in Stool Character, Coffee Ground Emesis, Constipation, Cramping, Diarrhea, Dyspepsia, Dysphagia, Early Satiety, Excessive Flatus, Fecal Incontinence, Heartburn, Hematemesis, Hematochezia, Loose Stools, Melena, Nausea, Odynophagia, Temesmus, Vomiting, Other - Genitourinary Genitourinary: absent: As Per HPI, Change in Urinary Stream, Difficulty Urinating, Dysuria, Flank Pain, Hematuria, Pyuria, Nocturia, Urinary Incontinence, Urinary Frequency, Urinary Hesitance, Urinary Urgency, Voiding Freq/Small Amts, Freq UTI, Hx Renal/Bladder Calculi, Hx /Renal Surgery, Bladder Distension, Other - Reproductive: Female Reproductive:Female: absent: As Per HPI, Amenorrhea, Amenorrhea/ Control, Currently Menstual, Cycle <21 Days, Cycle >35 Days, Cycle Variable, Menses 1-7 Days, Menses >/= 8 Days, Menses Variable, Cycle > 4 Weeks Between, No Menses for 6 Months, Heavy Menses, Light Menses, Normal Menses, Spotting Between Cycles , S/P Hysterectomy, Menopausal, Post Menopausal, Premenarche, Abnormal Vaginal Bleeding, Dysmenorrhea, Dyspareunia, Genital Lesions, Genital Pruritis, Pelvic Pain, Prolapse Symptoms, Sexual Dysfunction, Vaginal Discharge, Vaginal Dryness , Vaginal Odor, Vaginal Pruritis, Other - Menstruation Menstruation: absent: As Per HPI, Amenorrhea, Amenorrhea/ Control, Currently Menstual, Cycle <21 Days, Cycle >35 Days, Cycle Variable, Menses 1-7 Days, Menses >/= 8 Days, Menses Variable, Cycle > 4 Weeks Between, No Menses for 6 Months, Heavy Menses, Light Menses, Normal Menses, Spotting Between Cycles , S/P Hysterectomy, Menopausal, Post Menopausal, Premenarche, Abnormal Vaginal Bleeding, Dysmenorrhea, Other - Musculoskeletal Musculoskeletal: absent: As Per HPI, Abnormal Gait, Arthralgias, Atrophy, Back Pain, Deformity, Joint Swelling, Limited Range of Motion, Loss of Height, Muscle Cramps, Muscle Weakness, Myalgias, Neck Pain, Numbness, Radiating Pain into Limb, Stiffness, Tingling, Other - Integumentary Integumentary: As Per HPI, Skin Pain, Wounds - Neurological Neurological: absent: As Per HPI, Abnormal Gait, Abnormal Hearing, Abnormal Movements, Abnormal Speech, Behavioral Changes, Burning Sensations, Confusion, Convulsions, Disequilibrium, Dizziness, Numbness, Focal Weakness, Frequent Falls , Headaches, Lack of Coordination, Loss of Vision, Memory Loss, Paresthesias, Radicular Pain, Restless Legs, Sensory Deficit, Syncope, Tingling, Tremor, Vertigo, Weakness, Other Visual Disturbances, Other - Psychiatric Psychiatric: absent: As Per HPI, Abnormal Sleep Pattern, Anhedonia, Anxiety, Auditory Hallucinations, Behavioral Changes, Change in Appetite, Change in Libido, Confusion, Depression, Difficulty Concentrating, Hallucinations, Homicidal Ideation, Hopelessness, Irritability, Memory Loss, Mood Swings, Panic Attacks, Paranoia, Suicidal Ideation, Visual Hallucinations, Tactile Hallucinations, Other - Endocrine Endocrine: absent: As Per HPI, Change in Body Appearance, Change in Libido, Cold Intolorance, Deepening of Voice, Excessive Sweating, Fatigue, Flushing, Heat Intolorance, Increase in Ring/Shoe/Hat Size, Palpitations, Polydipsia, Polyphagia, Polyuria, Other - Hematologic/Lymphatic Hematologic: absent: As Per HPI, Easy Bleeding, Easy Bruising, Lymphadenopathy, Other Past Patient History - Infectious Disease Hx of Infectious Diseases: None - Tetanus Immunizations Tetanus Immunization: Up to Date - Past Medical History & Family History Past Medical History?: Yes - Past Social History Smoking Status: Light Smoker < 10 Cigarettes Daily - CARDIAC Hx Hypertension: No - PULMONARY Hx Bronchitis: Yes - NEUROLOGICAL Hx Seizures: No - HEENT Hx HEENT Problems: No - RENAL Hx Chronic Kidney Disease: No - ENDOCRINE/METABOLIC Hx Endocrine Disorders: No - HEMATOLOGICAL/ONCOLOGICAL Hx Anemia: No Hx Human Immunodeficiency Virus (HIV): No - INTEGUMENTARY Hx Dermatological Problems: Yes Other/Comment: PT. FOR SURGERY 11/08/15-DX:LEFT BREAST MASS. - MUSCULOSKELETAL/RHEUMATOLOGICAL Hx Musculoskeletal Disorders: Yes Hx Falls: No Other/Comment: hx back surgery - GASTROINTESTINAL Hx Gastrointestinal Disorders: No - GENITOURINARY/GYNECOLOGICAL Hx Sexually Transmitted Disorders: No - PSYCHIATRIC Hx Substance Use: Yes (marijuana) - SURGICAL HISTORY Hx Surgeries: Yes Hx Breast Biopsy: Yes Hx Orthopedic Surgery: Yes (LUMBAR LAMINECTOMY) Other/Comment: bilateral breast surgery march,Back Surgery 10/11/15. Lt breast surgery 09/17/16 - ANESTHESIA Hx Anesthesia: Yes Hx Anesthesia Reactions: No Hx Malignant Hyperthermia: No Meds Allergies/Adverse Reactions: Allergies Allergy/AdvReac Type Severity Reaction Status Date / Time No Known Allergies Allergy Verified 12/25/16 12:49 - Medications Medications: Current Medications Vancomycin/Sodium Chloride (Vancocin) 1 gm in 200 mls @ 133.333 mls/hr IVPB Q12H OPAL Stop: 12/30/16 18:01 Physical Exam - Constitutional Appears: Non-toxic, Chronically Ill - Head Exam Head Exam: NORMOCEPHALIC - Eye Exam Eye Exam: PERRL. absent: Scleral icterus - ENT Exam ENT Exam: Mucous Membranes Dry, Normal External Ear Exam - Neck Exam Neck exam: Negative for: Lymphadenopathy - Respiratory Exam Respiratory Exam: Decreased Breath Sounds, Clear to Auscultation Bilateral - Cardiovascular Exam Cardiovascular Exam: REGULAR RHYTHM, +S1, +S2 - GI/Abdominal Exam GI & Abdominal Exam: Diminished Bowel Sounds, Soft. absent: Tenderness - Rectal Exam Rectal Exam: Deferred - Exam Exam: NORMAL INSPECTION - Extremities Exam Extremities exam: Positive for: pedal pulses present. Negative for: calf tenderness, pedal edema, tenderness - Back Exam Back exam: absent: CVA tenderness (L), CVA tenderness (R), paraspinal tenderness - Neurological Exam Neurological exam: Alert, CN II-XII Intact, Oriented x3, Reflexes Normal - Psychiatric Exam Psychiatric exam: Normal Mood Results - Vital Signs Recent Vital Signs: Last Vital Signs Temp 98.4 F 12/25/16 16:00 Pulse 65 12/25/16 16:00 Resp 18 12/25/16 16:00 BP 98/53 L 12/25/16 16:00 Pulse Ox 99 12/25/16 16:00 - Labs Result Diagrams: 12/25/16 14:11 12/25/16 14:11 Assessment & Plan (1) Abscess Status: Acute (2) Breast abscess Status: Acute (3) Abscess of breast Status: Acute (4) Breast abscess Status: Acute (5) Low back pain Status: Acute - Assessment and Plan (Free Text) Assessment: await cultures cont iv antibiotics
[2016-12-25] MEDS ORDERED: Vancomycin 1 gm/NS 200 ml 1 GM/200 ML BAG IVPB SCH (18:00)
== END 2016-12-25 17:55 | disposition left against medical advice (07) | DRG 276 ==
LOC: C.9S 12:44 → C.ER 12:44 → C.SDS 14:04 → C.9S 15:43 → OBSVTOIN 16:43
PROVIDERS: ADMIT Surgery; ATTEND Surgery
DX: N61.1 Abscess of the breast and nipple (principal); F17.210 Nicotine dependence, cigarettes, uncomplicated; J40 Bronchitis, not specified as acute or chronic; M54.5 Low back pain; F12.90 Cannabis use, unspecified, uncomplicated

== ENCOUNTER 2016-12-30 12:01 | Inpatient (IN) | payer MEDICAID ==
[2016-12-30 12:01] VITALS: BMI 23.1
[2016-12-30 13:43] LABS: BASO # 0.1 K/uL (0.0-0.2); BASO % 0.7 % (0.0-2.0); EOS # 0.2 K/uL (0.0-0.7); EOS % 2.3 % (0.0-4.0); HEMATOCRIT 38.4 % (34.0-47.0); LYMPH # 2.2 K/uL (1.0-4.3); LYMPH % 23.3 % (20.0-40.0); MEAN CORPUSCULAR HEMOGLOBIN 29.1 pg (27.0-31.0); MEAN CORPUSCULAR HGB CONC 32.7 g/dL (33.0-37.0); MEAN PLATELET VOLUME 8.6 fL (7.2-11.7); MONO # 0.6 K/uL (0.0-0.8); MONO % 6.3 % (0.0-10.0); RED CELL DISTRIBUTION WIDTH 14.7 % (11.5-14.5); WHITE BLOOD COUNT 9.2 K/uL (4.8-10.8)
--- NOTE | 2016-12-30 13:48 | C.PDOC ---
History Of Present Illness 31-year-old female presents to the emergency department for left breast abscess to be drained in OR by Dr. Harrell. Patient states she has a Hx of multiple breast abscesses that have required I&D. Patient was on course of ABX, but does not remember the name. She denies fever, shortness of breath, chest pain, rash. Time Seen by Provider: 12/30/16 12:36 Chief Complaint (Nursing): Abnormal Skin Integrity History Per: Patient History/Exam Limitations: no limitations Onset/Duration Of Symptoms: Days Current Symptoms Are (Timing): Still Present Severity: Mild Past Medical History Reviewed: Historical Data, Nursing Documentation, Vital Signs Vital Signs: Last Vital Signs Temp 97.6 F 01/03/17 07:05 Pulse 74 01/03/17 07:05 Resp 18 01/03/17 07:05 BP 115/76 01/03/17 07:05 Pulse Ox 95 01/03/17 07:05 - Medical History PMH: Anxiety, Back Problems, Bronchitis Surgical History: Back Surgery (10/11/2015) - [facility] Procedures DRAINAGE OF BILATERAL BREAST, OPEN APPROACH (05/07/16) DRAINAGE OF BILATERAL BREAST, OPEN APPROACH, DIAGNOSTIC (03/27/16) DRAINAGE OF LEFT BREAST, OPEN APPROACH (10/31/16) EXCISION OF LEFT BREAST, OPEN APPROACH (09/16/16) EXTRACTION OF CHEST SUBCU/FASCIA, OPEN APPROACH (05/22/16) RESECTION OF LUMBOSACRAL DISC, OPEN APPROACH (10/05/15) TRANSFER CHEST SKIN, EXTERNAL APPROACH (09/16/16) Family History: States: No Known Family Hx - Social History Hx Tobacco Use: Yes Hx Alcohol Use: No Hx Substance Use: Yes (marijuana) - Immunization History Hx Tetanus Toxoid Vaccination: No Hx Influenza Vaccination: Yes Hx Pneumococcal Vaccination: Yes Review Of Systems Except As Marked, All Systems Reviewed And Found Negative. Constitutional: Negative for: Fever, Chills Cardiovascular: Negative for: Chest Pain, Palpitations Respiratory: Negative for: Cough, Shortness of Breath Gastrointestinal: Negative for: Nausea, Vomiting, Abdominal Pain Skin: Positive for: Other (breast asbcess) Physical Exam - Physical Exam Appears: Well, Non-toxic, No Acute Distress Skin: Warm, Dry, No Rash Head: Normacephalic Eye(s): bilateral: Normal Inspection Oral Mucosa: Moist Chest: Other (Left breast: Immediately inferior to areola, there is a draining pustule which is erythematous, tender to palpation and fluctuant. ) Cardiovascular: Rhythm Regular, No Murmur Respiratory: Normal Breath Sounds, No Rales, No Rhonchi, No Wheezing Extremity: Normal ROM Neurological/Psych: Oriented x3 ED Course And Treatment - Laboratory Results Result Diagrams: 01/02/17 07:50 01/02/17 07:50 O2 Sat by Pulse Oximetry: 100 (RA) Pulse Ox Interpretation: Normal Progress Note: Preop blood work, EKG ordered and reviewed. Patient given IV morphine for pain. Patient picked up by OR staff, admitted to same day surgery under Dr. Harrell. Admission order later changed by him to full admission. Disposition - Disposition Disposition: HOSPITALIZED Disposition Time: 14:05 Condition: STABLE - Clinical Impression Clinical Impression: Left breast abscess - Scribe Statement The provider has reviewed the documentation as recorded by the Scribe (Carlton Aguirre) All medical record entries made by the Scribe were at my direction and personally dictated by me. I have reviewed the chart and agree that the record accurately reflects my personal performance of the history, physical exam, medical decision making, and the department course for this patient. I have also personally directed, reviewed, and agree with the discharge instructions and disposition. Decision To Admit - Pt Status Changed To: Hospital Disposition Of: SDS- Endo,OR,Cath,IR - . Bed Request Type: Same Day Surgery Admitting Physician: Barry Harrell Patient Diagnosis: Left breast abscess
[2016-12-30 13:53] LABS: CHLORIDE 102 mmol/L (98-107); POTASSIUM 4.1 mmol/L (3.6-5.2); SODIUM 140 mmol/L (132-148)
[2016-12-30 13:55] LABS: BILIRUBIN,TOTAL 0.6 mg/dL (0.2-1.3); CARBON DIOXIDE 26 mmol/L (22-30); GFR AFRICAN-AMERICAN > 60
[2016-12-30] MEDS ORDERED: ceFAZolin IV 1 gm in Dextrose 1 GM/50 ML BAG IVPB ONE (13:55)
[2016-12-30 13:56] LABS: ALB/GLOB RATIO 1.2 (1.0-2.1); ALKALINE PHOSPHATASE 47 U/L (38-126); ALT/SGPT 19 U/L (9-52); AST/SGOT 25 U/L (14-36); BLOOD UREA NITROGEN 11 mg/dL (7-17); CALCIUM 8.6 mg/dl (8.6-10.4); GLUCOSE,RANDOM 81 mg/dL (65-105); TOTAL PROTEIN 7.4 g/dL (6.3-8.3)
[2016-12-30] MEDS ORDERED: Bupivacaine HCl 0.25% PF (10 ml) Inj ONE (13:56)
[2016-12-30] MEDS ORDERED: Lidocaine 1% Inj (20ml) ONE (13:56)
[2016-12-30] MEDS ORDERED: Midazolam 2 MG/2 ML VIAL ONE (14:00)
[2016-12-30] MEDS ORDERED: Propofol 10 mg/ml Inj (20 ML) ONE (14:00)
[2016-12-30] MEDS ORDERED: Lactated Ringer's 1,000 ML IV ONE (14:10)
[2016-12-30] MEDS ORDERED: Oxycodone/Acetaminophen 5/325 mg Tab PO PRN (14:45)
[2016-12-30] MEDS: HYDROmorphone 0.5 mg/0.5 ml ISec IVP PRN ×3 (15:00→15:43)
--- NOTE | 2016-12-30 15:32 | CP.PCM.CON ---
History of Present Illness - History of Present Illness History of Present Illness: 31 y/o patient with PMH chronic pain 2/2 per patient to back surgery and breast surgeries for abscesses. Patient in PACU, awake/alert, complaining of pain after receiving multiple doses of 0.5mg dilaudid, Dr. Harrell requesting patient to be evaluated for acute postoperative pain. Patient describing pain as 10/10 in left breast at incision site. Patient states she has been on and off percocet at home for back surgery and associated chronic back pain. Denies chest pain, shortness of breath, weakness, n/v, solemence, lethargy or other symptoms or any other PMH. Past Patient History - Infectious Disease Hx of Infectious Diseases: None - Tetanus Immunizations Tetanus Immunization: Up to Date - Past Medical History & Family History Past Medical History?: Yes - Past Social History Smoking Status: Light Smoker < 10 Cigarettes Daily - CARDIAC Hx Cardiac Disorders: No - PULMONARY Hx Bronchitis: Yes - NEUROLOGICAL Hx Neurological Disorder: No - HEENT Hx HEENT Problems: No - ENDOCRINE/METABOLIC Hx Endocrine Disorders: No - HEMATOLOGICAL/ONCOLOGICAL Hx Blood Disorders: No - INTEGUMENTARY Hx Dermatological Problems: Yes Other/Comment: PT. FOR SURGERY 11/08/15-DX:LEFT BREAST MASS. - MUSCULOSKELETAL/RHEUMATOLOGICAL Hx Musculoskeletal Disorders: Yes Other/Comment: hx back surgery - GASTROINTESTINAL Hx Gastrointestinal Disorders: No - GENITOURINARY/GYNECOLOGICAL Hx Genitourinary Disorders: No - PSYCHIATRIC Hx Anxiety: Yes Hx Substance Use: Yes (marijuana) - SURGICAL HISTORY Hx Surgeries: Yes Hx Breast Biopsy: Yes Hx Orthopedic Surgery: Yes (LUMBAR LAMINECTOMY) Other/Comment: bilateral breast surgery march,Back Surgery 10/11/15. Lt breast surgery 09/17/16 - ANESTHESIA Hx Anesthesia: Yes Hx Anesthesia Reactions: No Hx Malignant Hyperthermia: No Meds Allergies/Adverse Reactions: Allergies Allergy/AdvReac Type Severity Reaction Status Date / Time No Known Allergies Allergy Verified 12/30/16 12:04 - Medications Medications: Current Medications Docusate Sodium (Colace) 100 mg PO BID OPAL Famotidine (Pepcid) 20 mg PO DAILY OPAL Hydromorphone HCl (Dilaudid) 0.5 mg IVP Q10M PRN PRN Reason: Pain, moderate (4-7) Stop: 12/30/16 16:55 Last Admin: 12/30/16 15:19 Dose: 0.5 mg Metoclopramide HCl (Reglan) 10 mg IVP ONCE PRN PRN Reason: Nausea/Vomiting Stop: 12/30/16 16:55 Ondansetron HCl (Zofran Inj) 4 mg IVP Q6 PRN PRN Reason: Nausea/Vomiting Ondansetron HCl (Zofran Inj) 4 mg IVP ONCE PRN PRN Reason: Nausea/Vomiting Stop: 12/30/16 16:55 Oxycodone/Acetaminophen (Percocet 5/325 Mg Tab) 2 tab PO Q4H PRN PRN Reason: pain Stop: 01/02/17 14:46 Physical Exam - Head Exam Head Exam: NORMAL INSPECTION - Respiratory Exam Respiratory Exam: Clear to Auscultation Bilateral - Cardiovascular Exam Cardiovascular Exam: REGULAR RHYTHM, +S1, +S2 - GI/Abdominal Exam GI & Abdominal Exam: Normal Bowel Sounds - Extremities Exam Extremities exam: Positive for: normal inspection - Back Exam Back exam: NORMAL INSPECTION - Neurological Exam Neurological exam: Alert, CN II-XII Intact, Normal Gait, Oriented x3, Reflexes Normal - Psychiatric Exam Psychiatric exam: Normal Affect - Skin Skin Exam: Normal Color Results - Vital Signs Recent Vital Signs: Last Vital Signs Temp 97 F L 12/30/16 14:50 Pulse 63 12/30/16 14:50 Resp 12 12/30/16 14:50 BP 98/50 L 12/30/16 14:50 Pulse Ox 100 12/30/16 14:50 - Labs Result Diagrams: 12/30/16 13:27 12/30/16 13:27 Assessment & Plan - Assessment and Plan (Free Text) Assessment: Patient with above PMH c/o severe pain in PACU at surgical site, POD 0 of I and D left breast abscess. -would recommend 1mg hydromorphone IV every 4 hours PRN with goal of decreasing dose to 0.5mg IV every 4 hours on POD 1. -ibuprofen, tylenol -bowel regimen -if patient having persistent pain could start hydromorphone [employer], but only if patient having severe pain while on above regimen.
--- NOTE | 2016-12-31 04:57 | OP ---
PROCEDURE DATE: 12/30/2016 PREOPERATIVE DIAGNOSIS: Left breast abscess. POSTOPERATIVE DIAGNOSIS: Left breast abscess. PROCEDURE PERFORMED: Incision and drainage of left breast abscess. SURGEON: Barry Harrell MD TYPE OF ANESTHESIA: General. BLOOD LOSS: 50 mL. POSTOPERATIVE CONDITION: Stable. INDICATION FOR SURGERY: This is a 31-year-old female, she presents with a history of multiple recurrent breast abscesses bilaterally. The right breast has healed, however, the left breast developed a new abscess, for which she will undergo incision and drainage. She was admitted last week, but left against medical advice before the procedure could be done, the abscess has grown in size since. DESCRIPTION OF PROCEDURE: The patient was taken to the operating room. General anesthesia was administrated and the left breast was prepped and draped. Incision was made into the abscess cavity. The pus was drained and cultured. The abscess cavity was then completely excised in order to remove any of the inflammatory tissue, to obtain a better healing in this case. Bleeding was controlled using the Bovie. A larger chest wall blood vessel was repaired. The wound was partially closed via tissue expansion closure, and the central portion was packed open with wet saline gauze. The patient tolerated the procedure well and returned to the recovery room in stable condition. Barry Harrell MD
--- NOTE | 2016-12-31 11:50 | CP.PCM.CON ---
History of Present Illness - History of Present Illness History of Present Illness: 31-year-old female, presents to the emergency department for left breast abscess to be drained in OR by Dr Harrell. Patient states she has a Hx of multiple abscesses with I&D. Patient was on course of ABX, but does not remember the name. Denies fevers, shortness of breath, chest pain, or any other associated symptoms. No other complaints at this time. - Medical History PMH: Anxiety, Back Problems, Bronchitis Surgical History: Back Surgery (10/11/2015) Review of Systems - Constitutional Constitutional: absent: As Per HPI, Anorexia, Chills, Daytime Sleepiness, Excessive Sweating, Fatigue, Fever, Frequent Falls, Headache, Increased Appetite , Lethargy, Malaise, Night Sweats, Snoring, Sleep Apnea, Weight Gain, Weight Loss, Weakness, Other - EENT Eyes: absent: As Per HPI, Blind Spots, Blurred Vision, Change in Vision, Decreased Night Vision, Diplopia, Discharge, Dry Eye, Exophthalmos, Floaters, Irritation, Itchy Eyes, Loss of Peripheral Vision, Pain, Photophobia, Requires Corrective Lenses, Sees Flashes, Spots in Vision, Tunnel Vision, Other Visual Disturbances, Loss of Vision, Other Ears: absent: As Per HPI, Decreased Hearing, Ear Discharge, Ear Pain, Tinnitus, Abnormal Hearing, Disequilibrium, Dizziness, Other Nose/Mouth/Throat: absent: As Per HPI, Epistaxis, Nasal Congestion, Nasal Discharge, Nasal Obstruction, Nasal Trauma, Nose Pain, Post Nasal Drip, Sinus Pain, Sinus Pressure, Bleeding Gums, Change in Voice, Dental Pain, Dry Mouth, Dysphagia, Halitosis, Hoarsness, Lip Swelling, Mouth Lesions, Mouth Pain, Odynophagia, Sore Throat, Throat Swelling, Tongue Swelling, Facial Pain, Neck Pain, Neck Mass, Other - Breasts Breasts: absent: As Per HPI, Change in Shape, Mass, Pain, Nipple Discharge, Nipple Inversion, Skin Changes, Swelling, Other - Cardiovascular Cardiovascular: absent: As Per HPI, Acrocyanosis, Chest Pain, Chest Pain at Rest , Chest Pain with Activity, Claudication, Diaphoresis, Dyspnea, Dyspnea on Exertion, Edema, Irregular Heart Rhythm, Pain Radiating to Arm/Neck/Jaw, Leg Edema, Leg Ulcers, Lightheadedness, Orthopnea, Palpitations, Paroxysmal Nocturnal Dyspnea, Pedal Edema, Radiating Pain, Rapid Heart Rate, Slow Heart Rate, Syncope, Other - Respiratory Respiratory: absent: As Per HPI, Cough, Dyspnea, Hemoptysis, Dyspnea on Exertion , Wheezing, Snoring, Stridor, Pain on Inspiration, Chest Congestion, Excessive Mucous Production, Change in Mucous Color, Pain with Coughing, Other - Gastrointestinal Gastrointestinal: absent: As Per HPI, Abdominal Pain, Belching, Bloating, Change in Bowel Habits, Change in Stool Character, Coffee Ground Emesis, Constipation, Cramping, Diarrhea, Dyspepsia, Dysphagia, Early Satiety, Excessive Flatus, Fecal Incontinence, Heartburn, Hematemesis, Hematochezia, Loose Stools, Melena, Nausea, Odynophagia, Temesmus, Vomiting, Other - Genitourinary Genitourinary: absent: As Per HPI, Change in Urinary Stream, Difficulty Urinating, Dysuria, Flank Pain, Hematuria, Pyuria, Nocturia, Urinary Incontinence, Urinary Frequency, Urinary Hesitance, Urinary Urgency, Voiding Freq/Small Amts, Freq UTI, Hx Renal/Bladder Calculi, Hx /Renal Surgery, Bladder Distension, Other - Reproductive: Female Reproductive:Female: absent: As Per HPI, Amenorrhea, Amenorrhea/ Control, Currently Menstual, Cycle <21 Days, Cycle >35 Days, Cycle Variable, Menses 1-7 Days, Menses >/= 8 Days, Menses Variable, Cycle > 4 Weeks Between, No Menses for 6 Months, Heavy Menses, Light Menses, Normal Menses, Spotting Between Cycles , S/P Hysterectomy, Menopausal, Post Menopausal, Premenarche, Abnormal Vaginal Bleeding, Dysmenorrhea, Dyspareunia, Genital Lesions, Genital Pruritis, Pelvic Pain, Prolapse Symptoms, Sexual Dysfunction, Vaginal Discharge, Vaginal Dryness , Vaginal Odor, Vaginal Pruritis, Other - Menstruation Menstruation: absent: As Per HPI, Amenorrhea, Amenorrhea/ Control, Currently Menstual, Cycle <21 Days, Cycle >35 Days, Cycle Variable, Menses 1-7 Days, Menses >/= 8 Days, Menses Variable, Cycle > 4 Weeks Between, No Menses for 6 Months, Heavy Menses, Light Menses, Normal Menses, Spotting Between Cycles , S/P Hysterectomy, Menopausal, Post Menopausal, Premenarche, Abnormal Vaginal Bleeding, Dysmenorrhea, Other - Musculoskeletal Musculoskeletal: absent: As Per HPI, Abnormal Gait, Arthralgias, Atrophy, Back Pain, Deformity, Joint Swelling, Limited Range of Motion, Loss of Height, Muscle Cramps, Muscle Weakness, Myalgias, Neck Pain, Numbness, Radiating Pain into Limb, Stiffness, Tingling, Other - Integumentary Integumentary: As Per HPI - Neurological Neurological: absent: As Per HPI, Abnormal Gait, Abnormal Hearing, Abnormal Movements, Abnormal Speech, Behavioral Changes, Burning Sensations, Confusion, Convulsions, Disequilibrium, Dizziness, Numbness, Focal Weakness, Frequent Falls , Headaches, Lack of Coordination, Loss of Vision, Memory Loss, Paresthesias, Radicular Pain, Restless Legs, Sensory Deficit, Syncope, Tingling, Tremor, Vertigo, Weakness, Other Visual Disturbances, Other - Psychiatric Psychiatric: absent: As Per HPI, Abnormal Sleep Pattern, Anhedonia, Anxiety, Auditory Hallucinations, Behavioral Changes, Change in Appetite, Change in Libido, Confusion, Depression, Difficulty Concentrating, Hallucinations, Homicidal Ideation, Hopelessness, Irritability, Memory Loss, Mood Swings, Panic Attacks, Paranoia, Suicidal Ideation, Visual Hallucinations, Tactile Hallucinations, Other - Endocrine Endocrine: absent: As Per HPI, Change in Body Appearance, Change in Libido, Cold Intolorance, Deepening of Voice, Excessive Sweating, Fatigue, Flushing, Heat Intolorance, Increase in Ring/Shoe/Hat Size, Palpitations, Polydipsia, Polyphagia, Polyuria, Other - Hematologic/Lymphatic Hematologic: absent: As Per HPI, Easy Bleeding, Easy Bruising, Lymphadenopathy, Other Past Patient History - Infectious Disease Hx of Infectious Diseases: None - Tetanus Immunizations Tetanus Immunization: Up to Date - Past Medical History & Family History Past Medical History?: Yes - Past Social History Smoking Status: Heavy Smoker > 10 Cigarettes Daily - CARDIAC Hx Cardiac Disorders: No - PULMONARY Hx Respiratory Disorders: Yes Hx Bronchitis: Yes - NEUROLOGICAL Hx Neurological Disorder: No - HEENT Hx HEENT Problems: No - RENAL Hx Chronic Kidney Disease: No - ENDOCRINE/METABOLIC Hx Endocrine Disorders: No - HEMATOLOGICAL/ONCOLOGICAL Hx Blood Disorders: No - INTEGUMENTARY Hx Dermatological Problems: Yes Other/Comment: PT. FOR SURGERY 11/08/15-DX:LEFT BREAST MASS. - MUSCULOSKELETAL/RHEUMATOLOGICAL Hx Musculoskeletal Disorders: Yes Hx Falls: Yes - GASTROINTESTINAL Hx Gastrointestinal Disorders: No - GENITOURINARY/GYNECOLOGICAL Hx Genitourinary Disorders: No - PSYCHIATRIC Hx Psychophysiologic Disorder: No Hx Substance Use: No Other/Comment: pt states "I'm seeing a psychiatrist because I am always angry" - SURGICAL HISTORY Hx Surgeries: Yes Hx Breast Biopsy: Yes Hx Orthopedic Surgery: Yes (LUMBAR LAMINECTOMY) Other/Comment: bilateral breast surgery march,Back Surgery 10/11/15. Lt breast surgery 09/17/16 - ANESTHESIA Hx Anesthesia: Yes Hx Anesthesia Reactions: No Hx Malignant Hyperthermia: No Meds Allergies/Adverse Reactions: Allergies Allergy/AdvReac Type Severity Reaction Status Date / Time No Known Allergies Allergy Verified 12/30/16 12:04 - Medications Medications: Current Medications Docusate Sodium (Colace) 100 mg PO BID [facility] Last Admin: 12/31/16 09:01 Dose: 100 mg Famotidine (Pepcid) 20 mg PO DAILY [facility] Last Admin: 12/31/16 10:24 Dose: 20 mg Hydromorphone HCl (Dilaudid) 1 mg IVP Q4H PRN PRN Reason: Pain, severe (8-10) Last Admin: 12/31/16 09:01 Dose: 1 mg Ondansetron HCl (Zofran Inj) 4 mg IVP Q6 PRN PRN Reason: Nausea/Vomiting Physical Exam - Constitutional Appears: Non-toxic, Cachectic, Chronically Ill - Head Exam Head Exam: NORMOCEPHALIC - Eye Exam Eye Exam: PERRL. absent: Scleral icterus - ENT Exam ENT Exam: Mucous Membranes Dry, Normal External Ear Exam - Neck Exam Neck exam: Negative for: Lymphadenopathy - Respiratory Exam Respiratory Exam: Decreased Breath Sounds - Cardiovascular Exam Cardiovascular Exam: REGULAR RHYTHM - GI/Abdominal Exam GI & Abdominal Exam: Diminished Bowel Sounds, Soft. absent: Tenderness - Rectal Exam Rectal Exam: Deferred - Exam Exam: NORMAL INSPECTION - Extremities Exam Extremities exam: Negative for: pedal edema - Back Exam Back exam: absent: CVA tenderness (L), CVA tenderness (R) - Neurological Exam Neurological exam: Alert, CN II-XII Intact, Oriented x3, Reflexes Normal - Psychiatric Exam Psychiatric exam: Normal Mood - Skin Skin Exam: Dry Results - Vital Signs Recent Vital Signs: Last Vital Signs Temp 97.5 F L 12/31/16 08:02 Pulse 70 12/31/16 08:02 Resp 20 12/31/16 08:02 BP 103/44 L 12/31/16 08:02 Pulse Ox 98 12/31/16 08:02 - Labs Result Diagrams: 01/01/17 06:36 01/01/17 06:36 Assessment & Plan (1) Abscess Status: Acute (2) Abscess of breast Status: Acute - Assessment and Plan (Free Text) Assessment: cont iv rx and wound care check cultures
[2016-12-31] MEDS: ceFAZolin 1 gm FROZEN Premix 1 GM/50 ML ML IVPB SCH ×2 (13:38→21:32)
--- NOTE | 2016-12-31 15:15 | CP.PCM.PN ---
Subjective - Date & Time of Evaluation Date of Evaluation: 12/31/16 Time of Evaluation: 09:15 - Subjective Subjective: PGY 3 Medicine Consult Note - Dr. Carlos's service: Patient seen and examined at bedside this AM. Patient is a 31 year old female with PMHx of chronic back xiomara s/p lumbar discectomy and mutliple breast abscesses. Patient has had 12 I&[address] Harrell in the past few years. Patient is POD #1 s/p left breast abscess I &D. Patient reports slight pain at surgical site. Patient denies fever, chills, chest pain, SOB, abdominal pain, nausea, vomiting, diarrhea, constipation, dysuria. Objective - Vital Signs/Intake and Output Vital Signs (last 24 hours): Temp Pulse Resp BP Pulse Ox 97.5 F L 70 20 103/44 L 98 12/31/16 08:02 12/31/16 08:02 12/31/16 08:02 12/31/16 08:02 12/31/16 08:02 Intake and Output: 12/31/16 12/31/16 06:59 18:59 Intake Total 300 Balance 300 - Medications Medications: Current Medications Docusate Sodium (Colace) 100 mg PO BID [facility] Last Admin: 12/31/16 09:01 Dose: 100 mg Famotidine (Pepcid) 20 mg PO DAILY [facility] Last Admin: 12/31/16 10:24 Dose: 20 mg Hydromorphone HCl (Dilaudid) 1 mg IVP Q4H PRN PRN Reason: Pain, severe (8-10) Last Admin: 12/31/16 12:48 Dose: 1 mg Cefazolin Sodium (Ancef) 1 gm in 50 mls @ 100 mls/hr IVPB Q8H [facility] Last Admin: 12/31/16 13:38 Dose: 100 mls/hr Ondansetron HCl (Zofran Inj) 4 mg IVP Q6 PRN PRN Reason: Nausea/Vomiting - Labs Labs: PT 10.7 SECONDS (9.7-12.2) 12/30/16 13:27 INR 1.0 12/30/16 13:27 APTT 29 SECONDS (21-34) 12/30/16 13:27 - Constitutional Appears: Non-toxic, No Acute Distress - Head Exam Head Exam: NORMAL INSPECTION - Eye Exam Eye Exam: EOMI - ENT Exam ENT Exam: Mucous Membranes Moist - Respiratory Exam Respiratory Exam: Chest Wall Tenderness, Clear to Ausculation Bilateral, NORMAL BREATHING PATTERN. absent: Rales, Rhonchi, Wheezes - Cardiovascular Exam Cardiovascular Exam: REGULAR RHYTHM, +S1, +S2. absent: Gallop, Rubs, Murmur - GI/Abdominal Exam GI & Abdominal Exam: Soft, Normal Bowel Sounds. absent: Tenderness - Extremities Exam Extremities Exam: absent: Pedal Edema - Neurological Exam Neurological Exam: Alert, Awake, Oriented x3 - Psychiatric Exam Psychiatric exam: Normal Affect, Normal Mood - Skin Skin Exam: Normal Color, Warm Assessment and Plan - Assessment and Plan (Free Text) Assessment: Left Breast Abscess POD #1 s/p left breast abscess I&D Surgical patient of Dr. Harrell All surgical management per Dr. Harrell ID consult - Dr. Linares - help appreciated Wound culture negative x 24 hours Ancef 1gm IVPB Q8H Tobacco Abuse Refusing nicotine patch Chronic Back Pain Dilaudid 1mg IVP Q4H PRN pain, severe Colace 100mg PO BID Prophylaxis Pepcid 20mg PO daily SCDs All management per Dr. Carlos
[2017-01-01] MEDS: ceFAZolin 1 gm FROZEN Premix 1 GM/50 ML ML IVPB SCH ×3 (05:57→21:36)
[2017-01-01 07:04] LABS: AST/SGOT 21 U/L (14-36); BILIRUBIN,TOTAL 0.4 mg/dL (0.2-1.3); BLOOD UREA NITROGEN 12 mg/dL (7-17); CHLORIDE 99 mmol/L (98-107); GFR AFRICAN-AMERICAN > 60; GLUCOSE,RANDOM 99 mg/dL (65-105); POTASSIUM 4.1 mmol/L (3.6-5.2); TOTAL PROTEIN 6.8 g/dL (6.3-8.3)
[2017-01-01 07:15] LABS: ALB/GLOB RATIO 1.2 (1.0-2.1); ALKALINE PHOSPHATASE 46 U/L (38-126); ALT/SGPT 23 U/L (9-52); BASO % 0.6 % (0.0-2.0); CALCIUM 8.6 mg/dl (8.6-10.4); CARBON DIOXIDE 28 mmol/L (22-30); EOS # 0.3 K/uL (0.0-0.7); EOS % 3.7 % (0.0-4.0); HEMATOCRIT 36.8 % (34.0-47.0); LYMPH # 2.9 K/uL (1.0-4.3); LYMPH % 36.5 % (20.0-40.0); MEAN CELL VOLUME 88.4 fL (81.0-99.0); MEAN CORPUSCULAR HEMOGLOBIN 28.9 pg (27.0-31.0); MEAN CORPUSCULAR HGB CONC 32.7 g/dL (33.0-37.0); MEAN PLATELET VOLUME 8.3 fL (7.2-11.7); MONO # 0.7 K/uL (0.0-0.8); MONO % 9.3 % (0.0-10.0); RED CELL DISTRIBUTION WIDTH 14.8 % (11.5-14.5); SODIUM 138 mmol/L (132-148); WHITE BLOOD COUNT 7.9 K/uL (4.8-10.8)
[2017-01-01] MEDS ORDERED: Bupivacaine HCl 0.25% PF (10 ml) Inj ONE (11:27)
[2017-01-01] MEDS ORDERED: Lactated Ringer's 1,000 ML IV ONE ×2 (11:34→12:05)
[2017-01-01] MEDS ORDERED: Midazolam 2 MG/2 ML VIAL ONE (11:45)
[2017-01-01] MEDS ORDERED: Propofol 10 mg/ml Inj (20 ML) ONE (11:45)
[2017-01-01] MEDS: HYDROmorphone 0.5 mg/0.5 ml ISec IVP PRN ×2 (12:29→12:40)
[2017-01-01] MEDS ORDERED: HYDROmorphone 0.5 mg/0.5 ml ISec ONE (12:29)
--- NOTE | 2017-01-01 15:33 | CP.PCM.PN ---
Subjective - Date & Time of Evaluation Date of Evaluation: 01/01/17 Time of Evaluation: 15:31 - Subjective Subjective: PGY2 progress note for Dr. Carlos Pt is seen and examined at bedside. No acute events overnight. Pt continues to c/o left preast pain. She denies having any CP, SOB, abd pain N/V/D/C, F/C. 12 point ROS ar enegative except for the above mentioned. Objective - Vital Signs/Intake and Output Vital Signs (last 24 hours): Temp Pulse Resp BP Pulse Ox 97.2 F L 61 12 112/54 L 99 01/01/17 13:00 01/01/17 13:00 01/01/17 13:00 01/01/17 13:00 01/01/17 13:00 Intake and Output: 01/01/17 01/01/17 06:59 18:59 Intake Total 50 Balance 50 - Medications Medications: Current Medications Docusate Sodium (Colace) 100 mg PO BID [facility] Last Admin: 01/01/17 10:55 Dose: Not Given Famotidine (Pepcid) 20 mg PO DAILY [facility] Last Admin: 01/01/17 10:55 Dose: Not Given Hydromorphone HCl (Dilaudid) 1 mg IVP Q4H PRN PRN Reason: Pain, severe (8-10) Last Admin: 01/01/17 05:57 Dose: 1 mg Hydromorphone/Sodium Chloride (Dilaudid Fire Crew Specialist) 6 mg IV Q4H PRN; Protocol PRN Reason: Pain, moderate (4-7) Cefazolin Sodium (Ancef) 1 gm in 50 mls @ 100 mls/hr IVPB Q8H [facility] Last Admin: 01/01/17 14:30 Dose: 100 mls/hr Ondansetron HCl (Zofran Inj) 4 mg IVP Q6 PRN PRN Reason: Nausea/Vomiting - Labs Labs: 01/01/17 06:36 01/01/17 06:36 PT 10.7 SECONDS (9.7-12.2) 12/30/16 13:27 INR 1.0 12/30/16 13:27 APTT 29 SECONDS (21-34) 12/30/16 13:27 - Constitutional Appears: Non-toxic, No Acute Distress - Head Exam Head Exam: ATRAUMATIC - Eye Exam Eye Exam: EOMI - ENT Exam ENT Exam: Mucous Membranes Moist - Respiratory Exam Respiratory Exam: Clear to Ausculation Bilateral. absent: Accessory Muscle Use , Rales, Rhonchi, Wheezes, Respiratory Distress - Cardiovascular Exam Cardiovascular Exam: REGULAR RHYTHM, +S1, +S2 - GI/Abdominal Exam GI & Abdominal Exam: Soft, Normal Bowel Sounds. absent: Firm, Guarding, Rigid, Tenderness, Organomegaly - Extremities Exam Extremities Exam: absent: Pedal Edema, Tenderness - Neurological Exam Neurological Exam: Alert, Awake, Oriented x3 - Psychiatric Exam Psychiatric exam: Normal Affect, Normal Mood - Skin Additional comments: left breast abscess draining Assessment and Plan - Assessment and Plan (Free Text) Assessment: Left Breast Abscess POD #2 s/p left breast abscess I&D. Patient to return to OR today with Dr. Harrell Surgical patient of Dr. Harrell All surgical management per Dr. Harrell ID consult - Dr. Linares - help appreciated Wound culture negative x 24 hours Ancef 1gm IVPB Q8H Tobacco Abuse Refusing nicotine patch Chronic Back Pain Dilaudid 1mg IVP Q4H PRN pain, severe Colace 100mg PO BID Prophylaxis Pepcid 20mg PO daily SCDs All management per Dr. Carlos
--- NOTE | 2017-01-01 16:17 | OP ---
PROCEDURE DATE: 12/30/2016 PREOPERATIVE DIAGNOSIS: Extensive left breast abscess. POSTOPERATIVE DIAGNOSIS: Extensive left breast abscess. PROCEDURE PERFORMED: Change of the packing abscess, debridement . SURGEON: Barry Harrell MD ANESTHESIA: General. BLOOD LOSS: 30 mL. POSTOP CONDITION: Stable. PROCEDURE: The patient was taken back to the operating room today for the first change of packing under anesthesia. General anesthesia was administered and deep pack within the breast was removed, the left breast was prepped and draped. The area was again debrided, cultured and a suspicious firm mass was counted and removed for special biopsy. Bleeding was controlled using the Bovie. A chest wall blood vessel was repaired and the wound was partially irrigated with saline solution. Any remaining collections were drained in this manner. A partial tissue transfer closure was performed at the periphery and the central portion of wound was packed with wet saline gauze. The patient tolerated the procedure well and returned to recovery room in stable condition. Barry Harrell MD
[2017-01-02] MEDS ORDERED: DiphenhydrAMINE 50 mg/ml Inj IVP STA (01:13)
[2017-01-02] MEDS ORDERED: DiphenhydrAMINE 50 mg/ml Inj ONE (01:21)
--- NOTE | 2017-01-02 02:28 | CP.PCM.PN ---
Subjective - Date & Time of Evaluation Date of Evaluation: 01/02/17 Time of Evaluation: 02:15 - Subjective Subjective: House Doc Note, Brian Gerber - PGY2 Patient examined due to complaint of CREDIT RESOLUTION REPRESENTATIVE not alleviating pain effectively and patient becoming extremely frustrated and agitated, stating she does not trust the device. CREDIT RESOLUTION REPRESENTATIVE set to a maximum of Dilaudid 4.8mg over a 4H span. Patient did not receive her Dilaudid 2mg IVP dose for breakthrough pain. Also c/o difficulty sleeping due to feeling agitated and frustrated over her monthly hospitalizations over the past year. Ativan PRN not yet administered. Patient also c/o mild rash on back with mild itching since earlier today. She admits to having Dilaudid in the past with no ill effects. Stopped CREDIT RESOLUTION REPRESENTATIVE. Started Dilaudid 5mg IVP Q4H PRN severe pain. Continue Dilaudid 2mg IVP Q4H PRN moderate pain. Start Benadryl 25mg IVP for itchiness. Continue Ativan for agitation. Objective - Vital Signs/Intake and Output Vital Signs (last 24 hours): Temp Pulse Resp BP Pulse Ox 98.0 F 90 20 117/80 98 01/01/17 23:11 01/01/17 23:11 01/01/17 23:11 01/01/17 23:11 01/01/17 23:11 Intake and Output: 01/01/17 01/02/17 18:59 06:59 Intake Total 650 50 Balance 650 50 - Medications Medications: Current Medications Docusate Sodium (Colace) 100 mg PO BID [facility] Last Admin: 01/01/17 17:39 Dose: 100 mg Famotidine (Pepcid) 20 mg PO DAILY [facility] Last Admin: 01/01/17 10:55 Dose: Not Given Hydromorphone HCl (Dilaudid) 2 mg IVP Q4H PRN PRN Reason: Pain, moderate (4-7) Hydromorphone HCl (Dilaudid) 5 mg IVP Q4H PRN PRN Reason: Pain, severe (8-10) Cefazolin Sodium (Ancef) 1 gm in 50 mls @ 100 mls/hr IVPB Q8H [facility] Last Admin: 01/01/17 21:36 Dose: 100 mls/hr Lorazepam (Ativan) 1 mg PO Q6H PRN PRN Reason: Agitation Last Admin: 01/01/17 16:50 Dose: 1 mg Ondansetron HCl (Zofran Inj) 4 mg IVP Q6 PRN PRN Reason: Nausea/Vomiting - Labs Labs: 01/01/17 06:36 01/01/17 06:36 PT 10.7 SECONDS (9.7-12.2) 12/30/16 13:27 INR 1.0 12/30/16 13:27 APTT 29 SECONDS (21-34) 12/30/16 13:27 - Additional Findings Additional findings: - Constitutional Appears: Non-toxic, No Acute Distress - Head Exam Head Exam: ATRAUMATIC - Eye Exam Eye Exam: EOMI - ENT Exam ENT Exam: Mucous Membranes Moist - Respiratory Exam Respiratory Exam: Clear to Ausculation Bilateral. absent: Accessory Muscle Use , Rales, Rhonchi, Wheezes, Respiratory Distress - Cardiovascular Exam Cardiovascular Exam: REGULAR RHYTHM, +S1, +S2 - GI/Abdominal Exam GI & Abdominal Exam: Soft, Normal Bowel Sounds. absent: Firm, Guarding, Rigid, Tenderness, Organomegaly - Extremities Exam Extremities Exam: absent: Pedal Edema, Tenderness - Neurological Exam Neurological Exam: Alert, Awake, Oriented x3 - Psychiatric Exam Psychiatric exam: Normal Affect, Normal Mood - Skin Additional comments: -left breast abscess draining -Mild 5x3cm patch of erythema noted on L lumbar back. Scratch gonzalez noted over b /l shoulders from itching, reportedly yesterday.
[2017-01-02] MEDS: ceFAZolin 1 gm FROZEN Premix 1 GM/50 ML ML IVPB SCH ×3 (06:24→21:35)
[2017-01-02 07:57] LABS: BASO % 0.4 % (0.0-2.0); EOS # 0.3 K/uL (0.0-0.7); EOS % 4.7 % (0.0-4.0); HEMATOCRIT 38.5 % (34.0-47.0); LYMPH # 2.6 K/uL (1.0-4.3); LYMPH % 38.1 % (20.0-40.0); MEAN CELL VOLUME 88.2 fL (81.0-99.0); MEAN CORPUSCULAR HGB CONC 32.9 g/dL (33.0-37.0); MEAN PLATELET VOLUME 8.1 fL (7.2-11.7); MONO # 0.7 K/uL (0.0-0.8); MONO % 10.4 % (0.0-10.0); RED CELL DISTRIBUTION WIDTH 14.7 % (11.5-14.5); WHITE BLOOD COUNT 6.8 K/uL (4.8-10.8)
[2017-01-02 08:10] LABS: CHLORIDE 98 mmol/L (98-107)
[2017-01-02 08:11] LABS: POTASSIUM 4.3 mmol/L (3.6-5.2); SODIUM 136 mmol/L (132-148)
[2017-01-02 08:13] LABS: ALB/GLOB RATIO 1.3 (1.0-2.1); AST/SGOT 22 U/L (14-36); BILIRUBIN,TOTAL 0.4 mg/dL (0.2-1.3); BLOOD UREA NITROGEN 10 mg/dL (7-17); CARBON DIOXIDE 27 mmol/L (22-30); GFR AFRICAN-AMERICAN > 60; TOTAL PROTEIN 6.9 g/dL (6.3-8.3)
[2017-01-02 08:14] LABS: ALKALINE PHOSPHATASE 45 U/L (38-126); ALT/SGPT 19 U/L (9-52); CALCIUM 8.6 mg/dl (8.6-10.4); GLUCOSE,RANDOM 95 mg/dL (65-105)
--- NOTE | 2017-01-02 11:34 | CP.PCM.PN ---
Subjective - Date & Time of Evaluation Date of Evaluation: 01/02/17 Time of Evaluation: 09:00 - Subjective Subjective: Medicine Note- Dr Carlos's service Patient seen and examined with attending. Patient complains of pain at site of breast abscess. Patient is scheduled for discharge home today. She should follow up with Dr Carlos and Dr Harrell on discharge home. Denies fever, chills, nausea, vomiting, chest pain and shortness of breath. Objective - Vital Signs/Intake and Output Vital Signs (last 24 hours): Temp Pulse Resp BP Pulse Ox 97.9 F 69 20 102/61 99 01/02/17 08:40 01/02/17 08:40 01/02/17 08:40 01/02/17 08:40 01/02/17 08:40 Intake and Output: 01/02/17 01/02/17 06:59 18:59 Intake Total 50 Balance 50 - Medications Medications: Current Medications Docusate Sodium (Colace) 100 mg PO BID [facility] Last Admin: 01/02/17 09:52 Dose: 100 mg Famotidine (Pepcid) 20 mg PO DAILY [facility] Last Admin: 01/01/17 10:55 Dose: Not Given Hydromorphone HCl (Dilaudid) 2 mg IVP Q4H PRN PRN Reason: Pain, moderate (4-7) Last Admin: 01/02/17 11:04 Dose: 2 mg Hydromorphone HCl (Dilaudid) 5 mg IVP Q4H PRN PRN Reason: Pain, severe (8-10) Cefazolin Sodium (Ancef) 1 gm in 50 mls @ 100 mls/hr IVPB Q8H [facility] Last Admin: 01/02/17 06:24 Dose: 100 mls/hr Lorazepam (Ativan) 1 mg PO Q6H PRN PRN Reason: Agitation Last Admin: 01/02/17 02:19 Dose: 1 mg Ondansetron HCl (Zofran Inj) 4 mg IVP Q6 PRN PRN Reason: Nausea/Vomiting - Labs Labs: 01/02/17 07:50 01/02/17 07:50 PT 10.7 SECONDS (9.7-12.2) 12/30/16 13:27 INR 1.0 12/30/16 13:27 APTT 29 SECONDS (21-34) 12/30/16 13:27 - Additional Findings Additional findings: - Constitutional Appears: Non-toxic, No Acute Distress - Head Exam Head Exam: ATRAUMATIC - Eye Exam Eye Exam: EOMI - ENT Exam ENT Exam: Mucous Membranes Moist - Respiratory Exam Respiratory Exam: Clear to Ausculation Bilateral. absent: Accessory Muscle Use , Rales, Rhonchi, Wheezes, Respiratory Distress - Cardiovascular Exam Cardiovascular Exam: REGULAR RHYTHM, +S1, +S2 - GI/Abdominal Exam GI & Abdominal Exam: Soft, Normal Bowel Sounds. absent: Firm, Guarding, Rigid, Tenderness, Organomegaly - Extremities Exam Extremities Exam: absent: Pedal Edema, Tenderness - Neurological Exam Neurological Exam: Alert, Awake, Oriented x3 - Psychiatric Exam Psychiatric exam: Normal Affect, Normal Mood - Skin Additional comments: left breast abscess Assessment and Plan - Assessment and Plan (Free Text) Assessment: Left Breast Abscess POD #3 s/p left breast abscess initial I&D. Repeat I& D yesterday with Dr. Harrell Surgical patient of Dr. Harrell All surgical management per Dr. Harrell ID consult - Dr. Linares - help appreciated Wound culture negative x 24 hours Ancef 1gm IVPB Q8H Tobacco Abuse Refusing nicotine patch Chronic Back Pain Dilaudid 1mg IVP Q4H PRN pain, severe Colace 100mg PO BID Prophylaxis Pepcid 20mg PO daily [facility] Pending discharge home per Dr Harrell All management per Dr. Carlos
[2017-01-02] MEDS ORDERED: DiphenhydrAMINE 50 mg/ml Inj IVP PRN (19:35)
--- NOTE | 2017-01-03 01:01 | CON ---
DATE: 01/02/2017 CHIEF COMPLAINT AND REASON FOR CONSULTATION: The patient was referred by Dr. Harrell for evaluation. The patient claims she is very angry, she is not sleeping, and she is also having pain. HISTORY OF PRESENT ILLNESS: The patient is a 31-year-old female, who is a patient of Dr. Harrell, was admitted here for left breast abscess. She is status post I and D. The patient was referred for evaluation. The patient states she has been very angry, irritable, not sleeping, and very lowery. The patient reports that she has not been sleeping for long time and that the pain medications are not helping. The patient was given Ativan as well as Dilaudid 2 mg q.4 p.r.n. but she states it only lasted for 2 hours. The patient is asking for something to help her sleep and to help her with her mood. Today, the patient was very angry when seen, but cooperative during the interview. PAST MEDICAL HISTORY: Had a history as a child of seeing a psychiatrist and states she was treated with various anti-psych medications, at one point, she was on Risperdal, she was on Ritalin, Concerta. She was on various medications. According to her, she had an intake with [facility] but has not seen a psychiatrist for months because of her multiple admissions for I and D. DRUG HISTORY: The patient admits to using marijuana. She is also a smoker. Denies any alcohol use. SOCIAL HISTORY: The patient lives with her family. ALLERGIES: NO KNOWN DRUG ALLERGIES. MEDICATIONS: The patient was given earlier Ativan as well as Benadryl, Dilaudid 2 mg IV q.4 p.r.n., she states it is not helping her. The patient is asking something stronger to help her sleep. She states she was taking multiple psych medications in the past. List of current medications include cefazolin, Benadryl, Dilaudid, famotidine, Zofran. REVIEW OF SYSTEM: The patient is alert at the time she was seen in her room, very irritable and angry. She states she cannot sleep, and was asking for something to help her sleep. Mood is labile and irritable. PHYSICAL EXAMINATION VITAL SIGNS: Temperature is 98.4, pulse rate 77, blood pressure is 116/72, respirations 20, oxygen saturation is 97%. SKIN: No diaphoresis.. HEENT: No headache, no dizziness. NECK: Supple. CARDIOVASCULAR: No chest pain. The patient is complaining of pain in her surgical site. RESPIRATORY: No dyspnea. MUSCULOSKELETAL: Weakness. ABDOMEN: No nausea, no vomiting. EXTREMITIES: The patient is ambulatory. NEUROLOGIC: Alert and oriented x3. MENTAL STATUS EXAMINATION: A well-developed female, who looks stated age, oriented x3. Mood is very labile, irritable, she is anxious. The patient states she cannot sleep. The patient is asking for something to help her sleep. The patient's affect is stated as labile. Speech is slightly pressured. Thought process coherent. Thought content somewhat suspicious. No suicidal or homicidal ideation. The patient states she just needs something to calm her down and to help her sleep. Attention and memory seems to be fair. Insight and judgement limited. Impulse control is guarded at this time. IMPRESSION: History of depression as well as anxiety in the past. History of nicotine as well as marijuana abuse, consider also bipolar disorder, not otherwise specified. PLAN AND RECOMMENDATIONS: The patient was seen and medications reviewed. I discussed with the patient, we will try to give her something to calm her down. We will start with Klonopin 2 mg, we will give 2 mg p.o. x1 now and start Klonopin 2 mg p.o. a.m. and at bedtime. The patient had 2 orders of Dilaudid p.r.n. 2 mg IV q.4 and 5 mg IV q.6. We will discontinue the Dilaudid p.r.n. which is 5 mg IV q.4 as the patient was given benzo to avoid sedation. We will also discontinue the Ativan p.r.n. The patient was complaining of pruritus, we will continue to give Benadryl 25 IV q.6 p.r.n. If the patient still continues to have mood swings, we will try to give her Seroquel in the morning to adjust her moods. Mark Anderson MD [facility]
[2017-01-03] MEDS: ceFAZolin 1 gm FROZEN Premix 1 GM/50 ML ML IVPB SCH ×3 (05:36→22:30)
--- NOTE | 2017-01-03 17:44 | PN ---
SUBJECTIVE: The patient is seen. According to the nurse, the patient slept last night, but continues to be very labile with irritable mood and arguing, with staff. The patient went out to smoke. The patient states that the Klonopin makes her to have skin breakdown. The patient is asking to be on Xanax because she said it might calm her anxiety and has agreed to take Seroquel for mood stabilization. The patient is refusing to go to [facility] stating that she cannot smoke. The patient is a smoker. She has agreed to have her medications changed in the hospital and also to be slowly tapered off from her IV Dilaudid due to the p.o. pain medications. The patient has agreed to stay for now. PHYSICAL EXAMINATION: GENERAL: The patient is alert, verbal, but very irritable, augmentative. VITAL SIGNS: Temperature is 97.6, pulse rate 74, blood pressure is 115/76, respirations 18, oxygen saturation is 95%. SKIN: Complaining of skin breakdown in her back which she attributes to Klonopin, but she slept better last night. HEENT: No headache. No dizziness. NECK: Supple. RESPIRATORY: Dyspnea. The patient is still complaining of pain at her surgical site. The patient reports she had multiple surgeries on her breast since 10/2015. The patient seems to be dependent on pain medications. CARDIOVASCULAR: No chest pain. GASTROINTESTINAL: The patient is eating well. EXTREMITIES: The patient is ambulatory. NEUROLOGIC: Alert and oriented x3. GENITOURINARY: No dysuria. MENTAL STATUS: Well-developed female who looks stated age. Oriented x3. Mood is very liable, anxious, somatic, medication seeking. Affect, severe active schizophrenia. Thought process coherent. Thought content, the patient is still complaining about pain and also somewhat very hypervigilant. No suicidal or homicidal ideation. No hallucination. Attention and memory seem to be fair. Insight and judgment limited. Impulse control is fair at this time. The patient states that she wants her psych medications to be readjusted. She has an appointment with a psychiatrist next week on 01/09/2017 in [place], outpatient program. IMPRESSION: History of recurrent depression and anxiety, history of marijuana abuse and dependence, consider bipolar disorder, not otherwise specified, history of status post incision and drainage of a left breast abscess. RECOMMENDATION: The patient refusing to take Kllonopin. We will slowly switch the patient from IV Dilaudid to p.o. Percocet. We will put her on Seroquel 100 mg b.i.d. and then the patient wants to try Xanax 2 mg q. 12 hours. Once the patient is more stable, she can go back home. Follow up with [facility] outpatient program next week.D/C Klonopin and start Xanax 2mg po q 12 hrs. Mark Anderson MD MTDSaira
[2017-01-03] MEDS: Oxycodone/Acetaminophen 5/325 mg Tab PO PRN (22:29)
[2017-01-04] MEDS: ceFAZolin 1 gm FROZEN Premix 1 GM/50 ML ML IVPB SCH (06:37)
[2017-01-04] MEDS: Oxycodone/Acetaminophen 5/325 mg Tab PO PRN (09:13)
[2017-01-04 09:22] VITALS: BP 93/57; PULSE 76; RESP 18; TEMP 97.4; O2SAT 98
--- NOTE | 2017-01-04 13:52 | PN ---
DATE: 01/04/2017 SUBJECTIVE: The patient was seen. The patient seems to have tolerated current psych meds. The patient wants to go home today, is doing reasonable. The patient has agreed to follow up with [facility] [place] [facility]. She has an appointment on 01/09 at 3:30. The patient will be discharged on Seroquel 100 mg b.i.d. and Xanax 2 mg q. 12 hours. The patient will be given 1 weeks' prescription to cover the next appointment. PHYSICAL EXAMINATION VITAL SIGNS: Temperature is 97.4, pulse rate 76, blood pressure 93/57, respirations 18, oxygen saturation is 98%. REVIEW OF SYSTEMS: GENERAL: The patient is alert and verbal. The patient wants to go home. She is less irritable. SKIN: No diaphoresis. HEENT: No headache, no dizziness. NECK: Supple. RESPIRATORY: No dyspnea. CARDIOVASCULAR: No chest pain. GASTROINTESTINAL: Eating well. EXTREMITIES: Ambulatory. MUSCULOSKELETAL: Weakness, improving. NEUROLOGIC: Alert and oriented x3. The patient not in acute respiratory distress. MENTAL STATUS EXAMINATION: Well-developed female who looks stated age. Alert and oriented x3. Less irritable. The patient wants to go home. Speech is spontaneous. Affect is reactive. Thought process coherent. Thought content, no psychosis. No suicidal or homicidal ideation. Attention and memory seem to be fair. Insight and judgement improving. Impulse control is fair at this time. IMPRESSION: History of depression and anxiety, history of marijuana dependent and opiate dependent. Review of her drug screen is positive for opiate, positive for benzodiazepine. The patient has been taking Dilaudid as well as Xanax here and positive for marijuana. The patient did admit to doctor that she has been using marijuana. PLAN AND RECOMMENDATIONS: The patient is seen, meds reviewed. The patient is stable for discharge today. The patient will be given 1 week supply of her Xanax 2 mg b.i.d. as well as Seroquel 100 mg b.i.d. The patient to follow up with [facility] on 01/09, an appointment at 3:30 p.m. with the psychiatrist at [facility]. Continue treatment plan as outlined. The patient is stable for discharge today to home and follow up with Dr. Harrell for her breast problem. Mark Anderson MD [facility] # [id number] MTDSaira
== END 2017-01-04 13:42 | disposition home or self-care (01) | DRG 262 ==
LOC: C.ER 12:01 → C.SDS 14:15 → C.9S 14:43 → C.5T 15:00 → C.9S 15:00 → UNDODISIN 16:20 → C.5T 18:07
PROVIDERS: ADMIT Surgery; ATTEND Surgery
PROC: 0HBUXZZ (ICD-10-PCS; 2016-12-30)
PROC: 0HBU0ZX Excision of Left Breast, Open Approach, Diagnostic (ICD-10-PCS; 2016-12-30)
PROC: 2W0 Placement, Anatomical Regions, Change (ICD-10-PCS; 2016-12-30)
PROC: 0H9U0ZZ Drainage of Left Breast, Open Approach (ICD-10-PCS; principal; 2016-12-30 13:45)
DX: N61.1 Abscess of the breast and nipple (principal); F11.20 Opioid dependence, uncomplicated; F20.9 Schizophrenia, unspecified; F41.8 Other specified anxiety disorders; F17.210 Nicotine dependence, cigarettes, uncomplicated; L29.9 Pruritus, unspecified; F12.20 Cannabis dependence, uncomplicated; G89.29 Other chronic pain; M54.9 Dorsalgia, unspecified

== ENCOUNTER 2017-08-29 12:08 | Emergency (ER) | payer MEDICAID ==
[2017-08-29 12:20] VITALS: BMI 24.0
[2017-08-29 12:21] VITALS: BP 126/81; PULSE 78; RESP 18; TEMP 98.1; O2SAT 96
--- NOTE | 2017-08-29 12:55 | C.PDOC ---
History Of Present Illness 32 year old female presents to the ER with a complaint of chronic lower back pain. Patient reports she has had 14 surgeries, including lower back surgery by Dr. Laureano, however, with no improvement. Patient states she has been seen by different pain management and oncology specialist but states no one has been able to help her. Patient was upset, aggressive, and screaming in the waiting area, however, is calm now. Patient notes she also has been seen by psych because she cannot sleep. [place] PMPO reviewed, patient is taking opiates and benzos. Denies weakness or numbness. Time Seen by Provider: 08/29/17 12:41 Chief Complaint (Nursing): Back Pain History Per: Patient History/Exam Limitations: no limitations Onset/Duration Of Symptoms: Days Current Symptoms Are (Timing): Still Present Quality Of Discomfort: Unable To Describe Previous Symptoms: Back Pain, Chronic Pain Associated Symptoms: None Exacerbating Factor(s): Nothing Recent travel outside of the [place]: No Past Medical History Reviewed: Historical Data, Nursing Documentation, Vital Signs Vital Signs: Last Vital Signs Temp 98.1 F 08/29/17 12:20 Pulse 78 08/29/17 12:20 Resp 18 08/29/17 12:20 BP 126/81 08/29/17 12:20 Pulse Ox 96 08/29/17 13:15 - Medical History PMH: Anxiety, Back Problems, Bronchitis Surgical History: Back Surgery (10/11/2015) - [facility] Procedures CHANGE PACKING MATERIAL ON CHEST WALL (12/30/16) DRAINAGE OF BILATERAL BREAST, OPEN APPROACH (05/07/16) DRAINAGE OF BILATERAL BREAST, OPEN APPROACH, DIAGNOSTIC (03/27/16) DRAINAGE OF LEFT BREAST, OPEN APPROACH (12/30/16) EXCISION OF LEFT BREAST, EXTERNAL APPROACH (12/30/16) EXCISION OF LEFT BREAST, OPEN APPROACH (09/16/16) EXCISION OF LEFT BREAST, OPEN APPROACH, DIAGNOSTIC (12/30/16) EXTRACTION OF CHEST SUBCU/FASCIA, OPEN APPROACH (05/22/16) RESECTION OF LUMBOSACRAL DISC, OPEN APPROACH (10/05/15) TRANSFER CHEST SKIN, EXTERNAL APPROACH (09/16/16) Family History: States: Unknown Family Hx - Social History Hx Tobacco Use: Yes Hx Alcohol Use: No Hx Substance Use: Yes (marijuana) - Immunization History Hx Tetanus Toxoid Vaccination: No Hx Influenza Vaccination: Yes Hx Pneumococcal Vaccination: Yes Review Of Systems Musculoskeletal: Positive for: Back Pain (Chronic) Neurological: Negative for: Weakness, Numbness Physical Exam - Physical Exam Appears: Non-toxic, No Acute Distress Skin: Normal Color, Warm, Dry Head: Atraumatic, Normacephalic Eye(s): bilateral: Normal Inspection Back: Paraspinal Tenderness (Diffuse) Extremity: Normal ROM (x4) Neurological/Psych: Oriented x3, Normal Speech, Normal Motor, Normal Sensation Gait: Steady ED Course And Treatment O2 Sat by Pulse Oximetry: 96 (Room air) Pulse Ox Interpretation: Normal Progress Note: Percocet administered for pain, patient referred to follow up with Dr. Guy for pain management. Disposition - Disposition Referrals: Alex Roche MD [Staff Provider] - Disposition: HOME/ ROUTINE Disposition Time: 13:14 Condition: STABLE Additional Instructions: Follow up with PMD and sap specialist within 1-2 days. Return to ED if feel worse. Instructions: Low Back Pain in Adults Forms: [facility] (Romanian) - Clinical Impression Clinical Impression: Chronic low back pain - PA / DYER ASSISTANT / Resident Statement MD/DO has reviewed & agrees with the documentation as recorded. - Scribe Statement The provider has reviewed the documentation as recorded by the Scribe Obdulio Downing All medical record entries made by the Scribe were at my direction and personally dictated by me. I have reviewed the chart and agree that the record accurately reflects my personal performance of the history, physical exam, medical decision making, and the department course for this patient. I have also personally directed, reviewed, and agree with the discharge instructions and disposition.
[2017-08-29] MEDS ORDERED: Sodium Chloride 0.9% 1,000 ML ONE (13:03)
[2017-08-29] MEDS ORDERED: Oxycodone/Acetaminophen 5/325 mg Tab PO STA (13:11)
[2017-08-29] MEDS ORDERED: Oxycodone/Acetaminophen 5/325 mg Tab ONE (13:18)
== END 2017-08-29 13:19 | disposition home or self-care (01) ==
LOC: C.ER 12:08
DX: G89.29 Other chronic pain (principal); M54.5 Low back pain; Z72.0 Tobacco use

== ENCOUNTER 2018-04-27 17:44 | Emergency (ER) | payer MEDICAID ==
[2018-04-27 17:44] VITALS: BMI 24.0
--- NOTE | 2018-04-27 18:12 | C.PDOC ---
History Of Present Illness 32 year old female with PMHx of 14 back surgeries presents to the ED for evaluation of chronic pain. Patient reports she was discharged from pain management today and they called police and ems. Patient reports her pain medication is not working, complained at pain management. Patient denies fever, chills, abdominal pain, saddle anesthesia, bowel incontinence, weakness, numbness. pt sts she takes other medications as well and nothing works. Time Seen by Provider: 04/27/18 18:00 Chief Complaint (Nursing): Back Pain History Per: Patient History/Exam Limitations: no limitations Onset/Duration Of Symptoms: Persistent Current Symptoms Are (Timing): Still Present Quality Of Discomfort: "Pain" Previous Symptoms: Back Pain Recent travel outside of the [place]: No Additional History Per: Patient Past Medical History Reviewed: Historical Data, Nursing Documentation, Vital Signs Vital Signs: Last Vital Signs Temp 98.9 F 04/27/18 17:47 Pulse 74 04/27/18 17:47 Resp 20 04/27/18 17:47 BP 103/57 L 04/27/18 17:47 Pulse Ox 97 04/27/18 17:47 - Medical History PMH: Anxiety, Back Problems, Bronchitis Denies: Chronic Kidney Disease Surgical History: Back Surgery - [facility] Procedures CHANGE PACKING MATERIAL ON CHEST WALL (12/30/16) DRAINAGE OF BILATERAL BREAST, OPEN APPROACH (05/07/16) DRAINAGE OF BILATERAL BREAST, OPEN APPROACH, DIAGNOSTIC (03/27/16) DRAINAGE OF LEFT BREAST, OPEN APPROACH (12/30/16) EXCISION OF LEFT BREAST, EXTERNAL APPROACH (12/30/16) EXCISION OF LEFT BREAST, OPEN APPROACH (09/16/16) EXCISION OF LEFT BREAST, OPEN APPROACH, DIAGNOSTIC (12/30/16) EXTRACTION OF CHEST SUBCU/FASCIA, OPEN APPROACH (05/22/16) RESECTION OF LUMBOSACRAL DISC, OPEN APPROACH (10/05/15) TRANSFER CHEST SKIN, EXTERNAL APPROACH (09/16/16) Family History: States: Unknown Family Hx - Social History Hx Tobacco Use: Yes Hx Alcohol Use: No Hx Substance Use: Yes (marijuana this am) - Immunization History Hx Tetanus Toxoid Vaccination: Yes Hx Influenza Vaccination: Yes Hx Pneumococcal Vaccination: No Review Of Systems Constitutional: Negative for: Fever, Chills Cardiovascular: Negative for: Chest Pain Gastrointestinal: Negative for: Nausea, Vomiting, Abdominal Pain Genitourinary: Negative for: Incontinence Musculoskeletal: Positive for: Back Pain Neurological: Negative for: Weakness, Numbness, Headache, Dizziness Physical Exam - Physical Exam Appears: Non-toxic, No Acute Distress Skin: Normal Color, Warm, Dry Head: Atraumatic, Normacephalic Eye(s): bilateral: Normal Inspection Neck: Normal ROM, Supple Chest: Symmetrical Cardiovascular: Rhythm Regular Respiratory: Normal Breath Sounds, No Rales, No Rhonchi, No Wheezing Gastrointestinal/Abdominal: Soft, No Tenderness, No Guarding, No Rebound Back: Other (lumbar area 3 inches well healed surgical scar) Extremity: Bilateral: Atraumatic, Normal Color And Temperature, Normal ROM Neurological/Psych: Oriented x3, Normal Speech, Normal Cognition, Normal Motor, Normal Sensation Gait: Steady ED Course And Treatment O2 Sat by Pulse Oximetry: 97 (ON RA) Pulse Ox Interpretation: Normal Medical Decision Making Medical Decision Making: Patient was offered Motrin for pain, patient refused. Patient became agitated, argumentative and wants to be discharged right away. Disposition - Disposition Referrals: Arash Mcdonald MD [Medical Doctor] - Kobi Padilla MD [Staff Provider] - Disposition: HOME/ ROUTINE Disposition Time: 18:20 Condition: GOOD Additional Instructions: Follow up with pain management and with Dr Mcdonald Instructions: Chronic Pain (DC) Forms: [facility] (Japanese), General Discharge Instructions - Clinical Impression Clinical Impression: Chronic pain disorder - PA / CLINICAL TEAM MANAGER / Resident Statement MD/DO has reviewed & agrees with the documentation as recorded. - Scribe Statement The provider has reviewed the documentation as recorded by the Scribe Stiven Melara All medical record entries made by the Scribe were at my direction and personally dictated by me. I have reviewed the chart and agree that the record accurately reflects my personal performance of the history, physical exam, medical decision making, and the department course for this patient. I have also personally directed, reviewed, and agree with the discharge instructions and disposition.
[2018-04-28 00:57] VITALS: BP 103/57; PULSE 74; RESP 20; TEMP 98.9; O2SAT 97
== END 2018-04-27 18:19 | disposition home or self-care (01) ==
LOC: C.ER 17:44
DX: G89.29 Other chronic pain (principal)

== ENCOUNTER 2018-07-23 10:53 | Inpatient (IN) | payer MEDICAID ==
[2018-07-23 10:54] VITALS: BMI 24.0
--- NOTE | 2018-07-23 11:56 | C.PDOC ---
History Of Present Illness 32 yo female was sent to ED by for surgical treatment of left breast cellulitis with abscess. Pt reports hx of left breast pain, redness for past week. Denies fever, chills, CP, SOB, cough, dyspnea, abd. pain, V/D, UTI sx. Ambulatory. Time Seen by Provider: 07/23/18 11:12 Chief Complaint (Nursing): Breast Problem History Per: Patient Past Medical History Reviewed: Historical Data, Nursing Documentation, Vital Signs Vital Signs: Last Vital Signs Temp 98.3 F 07/23/18 10:57 Pulse 71 07/23/18 10:57 Resp 20 07/23/18 10:57 BP 103/70 07/23/18 10:57 Pulse Ox 100 07/23/18 10:57 - Medical History PMH: Anxiety, Back Problems, Bipolar Disorder, Bronchitis, Post Traumatic Stress Disorder Denies: Chronic Kidney Disease Surgical History: Back Surgery - [facility] Procedures CHANGE PACKING MATERIAL ON CHEST WALL (12/30/16) DRAINAGE OF BILATERAL BREAST, OPEN APPROACH (05/07/16) DRAINAGE OF BILATERAL BREAST, OPEN APPROACH, DIAGNOSTIC (03/27/16) DRAINAGE OF LEFT BREAST, OPEN APPROACH (12/30/16) EXCISION OF LEFT BREAST, EXTERNAL APPROACH (12/30/16) EXCISION OF LEFT BREAST, OPEN APPROACH (09/16/16) EXCISION OF LEFT BREAST, OPEN APPROACH, DIAGNOSTIC (12/30/16) EXTRACTION OF CHEST SUBCU/FASCIA, OPEN APPROACH (05/22/16) RESECTION OF LUMBOSACRAL DISC, OPEN APPROACH (10/05/15) TRANSFER CHEST SKIN, EXTERNAL APPROACH (09/16/16) Family History: States: Unknown Family Hx - Social History Hx Tobacco Use: Yes Hx Alcohol Use: Yes Hx Substance Use: Yes (marijuana this am) - Immunization History Hx Tetanus Toxoid Vaccination: Yes Hx Influenza Vaccination: Yes Hx Pneumococcal Vaccination: No Review Of Systems Except As Marked, All Systems Reviewed And Found Negative. Constitutional: Negative for: Fever, Chills ENT: Negative for: Throat Pain Cardiovascular: Negative for: Chest Pain, Palpitations, Edema, Light Headedness Respiratory: Negative for: Cough, Shortness of Breath, Wheezing Gastrointestinal: Negative for: Nausea, Vomiting, Abdominal Pain Genitourinary: Negative for: Dysuria, Incontinence Musculoskeletal: Negative for: Neck Pain, Back Pain Skin: Positive for: Other (left breast pain, redness) Neurological: Negative for: Weakness, Numbness Physical Exam - Physical Exam Appears: Well, Non-toxic, No Acute Distress Skin: Normal Color, Warm, Dry Head: Normacephalic Eye(s): bilateral: PERRL Nose: No Flaring, No Discharge Oral Mucosa: Moist Neck: Trachea Midline, Supple Lymphatic: No Axilla Node Tenderness Chest: Other (Left breastL erythema, mild edema at 3-7 o'clock below nipple with small central tender mass (+) flactulance.) Cardiovascular: Rhythm Regular, No Murmur, No JVD Respiratory: No Decreased Breath Sounds, No Accessory Muscle Use, No Stridor, No Wheezing Gastrointestinal/Abdominal: Soft, No Tenderness, No Distention, No Guarding Back: No CVA Tenderness Extremity: Normal ROM Neurological/Psych: Oriented x3, Normal Speech ED Course And Treatment - Laboratory Results Result Diagrams: 07/24/18 08:00 07/24/18 08:00 Lab Interpretation: No Acute Changes O2 Sat by Pulse Oximetry: 100 Pulse Ox Interpretation: Normal Progress Note: Case discussed with , admission confirmed. Disposition - Disposition Disposition: HOSPITALIZED Disposition Time: 11:50 Condition: STABLE - Clinical Impression Clinical Impression: Cellulitis of breast, Breast abscess
[2018-07-23] MEDS ORDERED: Piperacillin/Tazobact 3.375 gm 100 ML IV STA (11:58)
[2018-07-23 12:20] LABS: BASO # 0.1 K/uL (0.0-0.2); BASO % 0.8 % (0.0-2.0); EOS # 0.2 K/uL (0.0-0.7); EOS % 1.6 % (0.0-4.0); HEMOGLOBIN 13.2 g/dL (11.0-16.0); LYMPH % 20.9 % (20.0-40.0); MEAN CELL VOLUME 89.9 fL (81.0-99.0); MEAN CORPUSCULAR HEMOGLOBIN 29.2 pg (27.0-31.0); MEAN CORPUSCULAR HGB CONC 32.5 g/dL (33.0-37.0); MEAN PLATELET VOLUME 7.8 fL (7.2-11.7); MONO # 0.9 K/uL (0.0-0.8); MONO % 8.8 % (0.0-10.0); NEUT # 6.6 K/uL (1.8-7.0); NEUT % 67.9 % (50.0-75.0); NRBC % 0.1 % (0.0-2.0); RBC 4.5 Mil/uL (3.80-5.20); RED CELL DISTRIBUTION WIDTH 15.4 % (11.5-14.5); WHITE BLOOD COUNT 9.7 K/uL (4.8-10.8)
[2018-07-23 12:24] LABS: HCG,QUALITATIVE URINE NEGATIVE (NEGATIVE)
[2018-07-23] MEDS ORDERED: Piperacillin/Tazobact 3.375 gm 100 ML IVPB ONE (12:28)
[2018-07-23 12:29] LABS: SQUAMOUS EPITHIAL 3 /hpf (0-5); URINE BILIRUBIN NEGATIVE (NEGATIVE); URINE BLOOD NEGATIVE (NEGATIVE); URINE CLARITY Clear (Clear); URINE COLOR Yellow (YELLOW); URINE GLUCOSE (UA) NORMAL (Normal); URINE LEUKOCYTE ESTERASE NEG Leu/uL (Negative); URINE PROTEIN NEGATIVE (NEGATIVE); URINE UROBILINOGEN NORMAL mg/dL (0.2-1.0)
[2018-07-23 12:31] LABS: INR 1.1; PROTHROMBIN TIME 11.8 SECONDS (9.7-12.2)
[2018-07-23 12:33] LABS: BLOOD UREA NITROGEN 9 mg/dL (7-17); GFR NON-AFRICAN AMERICAN > 60
[2018-07-23] MEDS ORDERED: Midazolam 2 MG/2 ML VIAL ONE (15:00)
[2018-07-23] MEDS ORDERED: Propofol 10 mg/ml Inj (20 ML) ONE (15:00)
[2018-07-23] MEDS ORDERED: Bupivacaine 0.25% 20 ML INJ IJ ONE (15:32)
[2018-07-23] MEDS ORDERED: Vancomycin 1 gm/D5W 200 ml 1 GM/200 ML BAG IVPB ONE (15:36)
[2018-07-23] MEDS ORDERED: Oxycodone/Acetaminophen 5/325 mg Tab PO PRN (15:57)
[2018-07-23] MEDS: HYDROmorphone 0.5 mg/0.5 ml ISec IVP PRN ×2 (16:05→16:35)
--- NOTE | 2018-07-23 17:35 | CP.PCM.CON ---
<SitaTacho - Last Filed: 07/23/18 18:20> History of Present Illness - History of Present Illness History of Present Illness: PGY-1 Medicine Consult Note for Hospitalist service covering Dr. Carlos Reason for consult: medical management Patient is a 32 year old female with past medical history of recurrent L breast abscesses requiring I&D, lumbar disc disease, depression and bipolar disorder (sees a psychiatrist but has been off meds for 2-3 weeks because she doesn't "feel right" on them) presenting for I&D of a L breast abscess. Patient currently s/p I&D, resting comfortably and in no acute distress. Pain is well controlled at this time. No fevers/chills, headaches, dizziness, chest pain, palpitations, sob, cough, abdominal pain, n/v/d/c. PMHx: breast abscess, bulging disc disease, depression, bipolar disorder PSHx: breast I&Ds, breast bx, Lumbar discectomy and fusion Allergies: NKDA Home Meds: as per chart Family Hx: Mom--lupus, cervical cancer, CAD; Aunt--breast cancer; Dad--unknown Social Hx: social drinker, 1/2 ppd smoker, uses marijuana PMD: Dr. Shea Review of Systems - Review of Systems All systems: reviewed and no additional remarkable complaints except Review of Systems: as per HPI Past Patient History - Infectious Disease Hx of Infectious Diseases: None - Tetanus Immunizations Tetanus Immunization: Up to Date - Past Medical History & Family History Past Medical History?: Yes - Past Social History Smoking Status: Light Smoker < 10 Cigarettes Daily - CARDIAC Hx Cardiac Disorders: No - PULMONARY Hx Bronchitis: Yes - NEUROLOGICAL Hx Neurological Disorder: No - HEENT Hx HEENT Problems: No - RENAL Hx Chronic Kidney Disease: No - ENDOCRINE/METABOLIC Hx Endocrine Disorders: No - HEMATOLOGICAL/ONCOLOGICAL Hx Blood Disorders: No - INTEGUMENTARY Hx Dermatological Problems: Yes Other/Comment: LEFT BREAST MASS. - MUSCULOSKELETAL/RHEUMATOLOGICAL Hx Back Pain: Yes - GASTROINTESTINAL Hx Gastrointestinal Disorders: No - GENITOURINARY/GYNECOLOGICAL Hx Genitourinary Disorders: No - PSYCHIATRIC Hx Anxiety: Yes Hx Bipolar Disorder: Yes Hx Post Traumatic Stress Disorder: Yes Hx Substance Use: Yes (marijuana this am) - SURGICAL HISTORY Other/Comment: Breast Surgery - ANESTHESIA Hx Anesthesia: Yes Hx Anesthesia Reactions: No Hx Malignant Hyperthermia: No Meds Allergies/Adverse Reactions: Allergies Allergy/AdvReac Type Severity Reaction Status Date / Time No Known Allergies Allergy Verified 07/23/18 11:01 - Medications Medications: Current Medications Docusate Sodium (Colace) 100 mg PO BID [facility] Enoxaparin Sodium (Lovenox) 30 mg SC 1000,2200 [facility] Hydromorphone HCl (Dilaudid) 0.5 mg IVP Q15M PRN PRN Reason: Pain, moderate (4-7) Stop: 07/23/18 18:01 Last Admin: 07/23/18 16:35 Dose: 0.5 mg Vancomycin/Sodium Chloride (Vancomycin 1 Gm/Ns 200 Ml) 1 gm in 200 mls @ 133 mls/hr IVPB Q12H [facility]; Protocol Stop: 07/29/18 03:31 Metoclopramide HCl (Reglan) 10 mg IVP ONCE PRN PRN Reason: Nausea/Vomiting Stop: 07/23/18 18:01 Morphine Sulfate (Morphine) 5 mg IV Q6 PRN PRN Reason: pain 8-10 Ondansetron HCl (Zofran Inj) 4 mg IVP ONCE PRN PRN Reason: Nausea/Vomiting Stop: 07/23/18 18:01 Ondansetron HCl (Zofran Inj) 4 mg IVP Q6 PRN PRN Reason: Nausea/Vomiting Oxycodone/Acetaminophen (Percocet 5/325 Mg Tab) 2 tab PO Q4H PRN PRN Reason: pain Stop: 07/26/18 15:58 Pantoprazole Sodium (Protonix Inj) 40 mg IVP DAILY [facility] Physical Exam - Constitutional Appears: Non-toxic - Head Exam Head Exam: ATRAUMATIC, NORMAL INSPECTION, NORMOCEPHALIC - Eye Exam Eye Exam: EOMI, Normal appearance - ENT Exam ENT Exam: Mucous Membranes Moist, Normal Exam - Neck Exam Neck exam: Positive for: Normal Inspection, Tenderness. Negative for: Full Rom, Thyromegaly - Respiratory Exam Respiratory Exam: Clear to Auscultation Bilateral, NORMAL BREATHING PATTERN. absent: Accessory Muscle Use, Rales, Rhonchi, Wheezes, Respiratory Distress, Stridor - Cardiovascular Exam Cardiovascular Exam: REGULAR RHYTHM, +S1, +S2 - GI/Abdominal Exam GI & Abdominal Exam: Normal Bowel Sounds, Soft. absent: Distended, Firm, Guarding, Rebound, Rigid, Tenderness - Extremities Exam Extremities exam: Positive for: normal capillary refill, normal inspection, pedal pulses present. Negative for: calf tenderness, pedal edema - Neurological Exam Neurological exam: Alert, CN II-XII Intact, Normal Gait, Oriented x3 - Psychiatric Exam Psychiatric exam: Anxious, Depressed - Skin Skin Exam: Dry, Intact, Normal Color, Warm Additional comments: dressing to L breast c/d/i. No surrounding erythema noted, no drainage. No tenderness to palpation or lymphadenopathy Results - Vital Signs Recent Vital Signs: Last Vital Signs Temp 98.4 F 07/23/18 15:53 Pulse 78 07/23/18 16:50 Resp 15 07/23/18 16:50 BP 107/59 L 07/23/18 16:50 Pulse Ox 100 07/23/18 16:50 - Labs Result Diagrams: 07/23/18 12:16 07/23/18 12:16 Labs: Laboratory Results - last 24 hr 07/23/18 07/23/18 07/23/18 12:16 12:16 12:16 WBC 9.7 RBC 4.50 Hgb 13.2 Hct 40.5 MCV 89.9 MCH 29.2 MCHC 32.5 L RDW 15.4 H Plt Count 234 MPV 7.8 Neut % (Auto) 67.9 Lymph % (Auto) 20.9 [place] % (Auto) 8.8 Eos % (Auto) 1.6 Baso % (Auto) 0.8 Neut # (Auto) 6.6 Lymph # (Auto) 2.0 [place] # (Auto) 0.9 H Eos # (Auto) 0.2 Baso # (Auto) 0.1 PT 11.8 INR 1.1 APTT 34 Sodium 140 Potassium 4.2 Chloride 106 Carbon Dioxide 26 Anion Gap 13 BUN 9 Creatinine 0.5 L Est GFR ( Amer) > 60 Est GFR (Non-Af Amer) > 60 Random Glucose 88 Calcium 9.0 Urine Color Urine Clarity Urine pH Ur Specific [place] Urine Protein Urine Glucose (UA) Urine Ketones Urine Blood Urine Nitrate Urine Bilirubin Urine Urobilinogen Ur Leukocyte Esterase Urine WBC (Auto) Urine RBC (Auto) Ur Squamous Epith Cells Urine HCG, Qual 07/23/18 12:16 WBC RBC Hgb Hct MCV MCH MCHC RDW Plt Count MPV Neut % (Auto) Lymph % (Auto) [place] % (Auto) Eos % (Auto) Baso % (Auto) Neut # (Auto) Lymph # (Auto) [place] # (Auto) Eos # (Auto) Baso # (Auto) PT INR APTT Sodium Potassium Chloride Carbon Dioxide Anion Gap BUN Creatinine Est GFR ( Amer) Est GFR (Non-Af Amer) Random Glucose Calcium Urine Color Yellow Urine Clarity Clear Urine pH 6.0 Ur Specific [place] 1.019 Urine Protein Negative Urine Glucose (UA) Normal Urine Ketones Negative Urine Blood Negative Urine Nitrate Negative Urine Bilirubin Negative Urine Urobilinogen Normal Ur Leukocyte Esterase Neg Urine WBC (Auto) 1 Urine RBC (Auto) < 1 Ur Squamous Epith Cells 3 Urine HCG, Qual Negative Assessment & Plan - Assessment and Plan (Free Text) Plan: L breast abscess -s/p I&D with Dr. Harrell, POD #0 -NPO past MN, returning to OR tomorrow -c/w vancomycin [address] Harrell -add zosyn -c/w current pain mgmt -f/u lipid panel, A1C Depression, Bipolar Disorder -recommend psych consult to resume meds -pastoral care for depression PPx, Diet, Disposition -DVT ppx: lovenox 30 mg SC 1000, [address] Copeland -GI ppx: colace 100 mg PO BID Case discussed with Dr. Rubens Buckner DO, PGY-1 <Leodan Art - Last Filed: 07/24/18 09:04> Meds - Medications Medications: Current Medications Docusate Sodium (Colace) 100 mg PO BID [facility] Last Admin: 07/23/18 17:40 Dose: 100 mg Enoxaparin Sodium (Lovenox) 30 mg SC 1000,2200 [facility] Last Admin: 07/23/18 22:11 Dose: 30 mg Vancomycin/Sodium Chloride (Vancomycin 1 Gm/Ns 200 Ml) 1 gm in 200 mls @ 133 mls/hr IVPB Q12H [facility]; Protocol Stop: 07/29/18 03:31 Last Admin: 07/24/18 03:10 Dose: 133 mls/hr Piperacillin Sod/Tazobactam Sod (Zosyn 3.375 Gm Iv Premix) 3.375 gm in 50 mls @ 100 mls/hr IVPB Q6H [facility]; Protocol Last Admin: 07/24/18 07:56 Dose: 100 mls/hr Morphine Sulfate (Morphine) 5 mg IV Q6 PRN PRN Reason: pain 8-10 Last Admin: 07/23/18 19:06 Dose: 5 mg Ondansetron HCl (Zofran Inj) 4 mg IVP Q6 PRN PRN Reason: Nausea/Vomiting Last Admin: 07/24/18 00:09 Dose: 4 mg Oxycodone/Acetaminophen (Percocet 5/325 Mg Tab) 2 tab PO Q4H PRN PRN Reason: pain Stop: 07/26/18 15:58 Pantoprazole Sodium (Protonix Inj) 40 mg IVP DAILY [facility] Results - Vital Signs Recent Vital Signs: Last Vital Signs Temp 98.5 F 07/24/18 08:00 Pulse 66 07/24/18 08:00 Resp 20 07/24/18 08:00 BP 103/69 07/24/18 08:00 Pulse Ox 97 07/24/18 08:00 - Labs Result Diagrams: 07/24/18 08:00 07/24/18 08:00 Labs: Laboratory Results - last 24 hr 07/23/18 07/23/18 07/23/18 12:16 12:16 12:16 WBC 9.7 RBC 4.50 Hgb 13.2 Hct 40.5 MCV 89.9 MCH 29.2 MCHC 32.5 L RDW 15.4 H Plt Count 234 MPV 7.8 Neut % (Auto) 67.9 Lymph % (Auto) 20.9 [place] % (Auto) 8.8 Eos % (Auto) 1.6 Baso % (Auto) 0.8 Neut # (Auto) 6.6 Lymph # (Auto) 2.0 [place] # (Auto) 0.9 H Eos # (Auto) 0.2 Baso # (Auto) 0.1 PT 11.8 INR 1.1 APTT 34 Sodium 140 Potassium 4.2 Chloride 106 Carbon Dioxide 26 Anion Gap 13 BUN 9 Creatinine 0.5 L Est GFR ( Amer) > 60 Est GFR (Non-Af Amer) > 60 Random Glucose 88 Calcium 9.0 Phosphorus Magnesium Total Bilirubin AST ALT Alkaline Phosphatase Total Protein Albumin Globulin Albumin/Globulin Ratio Triglycerides Cholesterol LDL Cholesterol Direct HDL Cholesterol Urine Color Urine Clarity Urine pH Ur Specific [place] Urine Protein Urine Glucose (UA) Urine Ketones Urine Blood Urine Nitrate Urine Bilirubin Urine Urobilinogen Ur Leukocyte Esterase Urine WBC (Auto) Urine RBC (Auto) Ur Squamous Epith Cells Urine HCG, Qual 07/23/18 07/24/18 07/24/18 12:16 08:00 08:00 WBC 9.7 RBC 4.19 Hgb 12.0 Hct 37.4 MCV 89.4 MCH 28.7 MCHC 32.1 L RDW 14.7 H Plt Count 221 MPV 7.7 Neut % (Auto) 68.4 Lymph % (Auto) 17.0 L [place] % (Auto) 13.1 H Eos % (Auto) 0.8 Baso % (Auto) 0.7 Neut # (Auto) 6.6 Lymph # (Auto) 1.6 [place] # (Auto) 1.3 H Eos # (Auto) 0.1 Baso # (Auto) 0.1 PT INR APTT Sodium 139 Potassium 4.0 Chloride 107 Carbon Dioxide 24 Anion Gap 12 BUN 13 Creatinine 1.7 H Est GFR ( Amer) 42 Est GFR (Non-Af Amer) 35 Random Glucose 101 Calcium 8.5 L Phosphorus 4.4 Magnesium 2.0 Total Bilirubin 0.6 AST 29 ALT 12 Alkaline Phosphatase 51 Total Protein 7.0 Albumin 4.1 Globulin 2.9 Albumin/Globulin Ratio 1.4 Triglycerides 61 Cholesterol 125 LDL Cholesterol Direct 86 HDL Cholesterol 32 Urine Color Yellow Urine Clarity Clear Urine pH 6.0 Ur Specific [place] 1.019 Urine Protein Negative Urine Glucose (UA) Normal Urine Ketones Negative Urine Blood Negative Urine Nitrate Negative Urine Bilirubin Negative Urine Urobilinogen Normal Ur Leukocyte Esterase Neg Urine WBC (Auto) 1 Urine RBC (Auto) < 1 Ur Squamous Epith Cells 3 Urine HCG, Qual Negative Attending/Attestation - Attestation I have personally seen and examined this patient.: Yes I have fully participated in the care of the patient.: Yes I have reviewed all pertinent clinical information: Yes Notes (Text): Patient seen and examined with the residents, agree with above L breast abscess s/p I&D, Surgical team planning for OR again 07/24/18 broad spectrum Abx until culture reports available Psych consultation Rest of care as per primary
--- NOTE | 2018-07-23 18:51 | CP.PCM.CON ---
History of Present Illness - History of Present Illness History of Present Illness: 31-year-old female, presents to the emergency department for left breast abscess drained in OR by Dr Harrell. Patient states she has a Hx of multiple abscesses with I&D. ID consulted for this - Medical History PMH: Anxiety, Back Problems, Bronchitis Surgical History: Back Surgery (10/11/2015) Review of Systems - Constitutional Constitutional: absent: As Per HPI, Anorexia, Chills, Daytime Sleepiness, Excessive Sweating, Fatigue, Fever, Frequent Falls, Headache, Increased Appetite, Lethargy, Malaise, Night Sweats, Snoring, Sleep Apnea, Weight Gain, Weight Loss, Weakness, Other - EENT Eyes: absent: As Per HPI, Blind Spots, Blurred Vision, Change in Vision, Decreased Night Vision, Diplopia, Discharge, Dry Eye, Exophthalmos, Floaters, Irritation, Itchy Eyes, Loss of Peripheral Vision, Pain, Photophobia, Requires Corrective Lenses, Sees Flashes, Spots in Vision, Tunnel Vision, Other Visual Disturbances, Loss of Vision, Other Ears: absent: As Per HPI, Decreased Hearing, Ear Discharge, Ear Pain, Tinnitus, Abnormal Hearing, Disequilibrium, Dizziness, Other Nose/Mouth/Throat: absent: As Per HPI, Epistaxis, Nasal Congestion, Nasal Discharge, Nasal Obstruction, Nasal Trauma, Nose Pain, Post Nasal Drip, Sinus Pain, Sinus Pressure, Bleeding Gums, Change in Voice, Dental Pain, Dry Mouth, Dysphagia, Halitosis, Hoarsness, Lip Swelling, Mouth Lesions, Mouth Pain, Odynophagia, Sore Throat, Throat Swelling, Tongue Swelling, Facial Pain, Neck Pain, Neck Mass, Other - Breasts Breasts: absent: As Per HPI, Change in Shape, Mass, Pain, Nipple Discharge, Nipple Inversion, Skin Changes, Swelling, Other - Cardiovascular Cardiovascular: absent: As Per HPI, Acrocyanosis, Chest Pain, Chest Pain at Rest, Chest Pain with Activity, Claudication, Diaphoresis, Dyspnea, Dyspnea on Exertion, Edema, Irregular Heart Rhythm, Pain Radiating to Arm/Neck/Jaw, Leg Edema, Leg Ulcers, Lightheadedness, Orthopnea, Palpitations, Paroxysmal Nocturnal Dyspnea, Pedal Edema, Radiating Pain, Rapid Heart Rate, Slow Heart Rate, Syncope, Other - Respiratory Respiratory: absent: As Per HPI, Cough, Dyspnea, Hemoptysis, Dyspnea on Exertion, Wheezing, Snoring, Stridor, Pain on Inspiration, Chest Congestion, Excessive Mucous Production, Change in Mucous Color, Pain with Coughing, Other - Gastrointestinal Gastrointestinal: absent: As Per HPI, Abdominal Pain, Belching, Bloating, Change in Bowel Habits, Change in Stool Character, Coffee Ground Emesis, Constipation, Cramping, Diarrhea, Dyspepsia, Dysphagia, Early Satiety, Excessive Flatus, Fecal Incontinence, Heartburn, Hematemesis, Hematochezia, Loose Stools, Melena, Nausea, Odynophagia, Temesmus, Vomiting, Other - Genitourinary Genitourinary: absent: As Per HPI, Change in Urinary Stream, Difficulty Urinating, Dysuria, Flank Pain, Hematuria, Pyuria, Nocturia, Urinary Incontinence, Urinary Frequency, Urinary Hesitance, Urinary Urgency, Voiding Freq/Small Amts, Freq UTI, Hx Renal/Bladder Calculi, Hx /Renal Surgery, Bladder Distension, Other - Reproductive: Female Reproductive:Female: absent: As Per HPI, Amenorrhea, Amenorrhea/ Control, Currently Menstual, Cycle <21 Days, Cycle >35 Days, Cycle Variable, Menses 1-7 Days, Menses >/= 8 Days, Menses Variable, Cycle > 4 Weeks Between, No Menses for 6 Months, Heavy Menses, Light Menses, Normal Menses, Spotting Between Cycles, S/P Hysterectomy, Menopausal, Post Menopausal, Premenarche, Abnormal Vaginal Bleeding, Dysmenorrhea, Dyspareunia, Genital Lesions, Genital Pruritis, Pelvic P ain, Prolapse Symptoms, Sexual Dysfunction, Vaginal Discharge, Vaginal Dryness, Vaginal Odor, Vaginal Pruritis, Other - Menstruation Menstruation: absent: As Per HPI, Amenorrhea, Amenorrhea/ Control, Currently Menstual, Cycle <21 Days, Cycle >35 Days, Cycle Variable, Menses 1-7 Days, Menses >/= 8 Days, Menses Variable, Cycle > 4 Weeks Between, No Menses for 6 Months, Heavy Menses, Light Menses, Normal Menses, Spotting Between Cycles, S/P Hysterectomy, Menopausal, Post Menopausal, Premenarche, Abnormal Vaginal Bleeding, Dysmenorrhea, Other - Musculoskeletal Musculoskeletal: absent: As Per HPI, Abnormal Gait, Arthralgias, Atrophy, Back Pain, Deformity, Joint Swelling, Limited Range of Motion, Loss of Height, Muscle Cramps, Muscle Weakness, Myalgias, Neck Pain, Numbness, Radiating Pain into Limb, Stiffness, Tingling, Other - Integumentary Integumentary: As Per HPI - Neurological Neurological: absent: As Per HPI, Abnormal Gait, Abnormal Hearing, Abnormal Movements, Abnormal Speech, Behavioral Changes, Burning Sensations, Confusion, Convulsions, Disequilibrium, Dizziness, Numbness, Focal Weakness, Frequent Falls, Headaches, Lack of Coordination, Loss of Vision, Memory Loss, Paresthesias, Radicular Pain, Restless Legs, Sensory Deficit, Syncope, Tingling, Tremor, Vertigo, Weakness, Other Visual Disturbances, Other - Psychiatric Psychiatric: absent: As Per HPI, Abnormal Sleep Pattern, Anhedonia, Anxiety, Auditory Hallucinations, Behavioral Changes, Change in Appetite, Change in Libid o, Confusion, Depression, Difficulty Concentrating, Hallucinations, Homicidal Ideation, Hopelessness, Irritability, Memory Loss, Mood Swings, Panic Attacks, Paranoia, Suicidal Ideation, Visual Hallucinations, Tactile Hallucinations, Other - Endocrine Endocrine: absent: As Per HPI, Change in Body Appearance, Change in Libido, Cold Intolorance, Deepening of Voice, Excessive Sweating, Fatigue, Flushing, Heat Intolorance, Increase in Ring/Shoe/Hat Size, Palpitations, Polydipsia, Polyphagia, Polyuria, Other - Hematologic/Lymphatic Hematologic: absent: As Per HPI, Easy Bleeding, Easy Bruising, Lymphadenopathy, Other Past Patient History - Infectious Disease Hx of Infectious Diseases: None - Tetanus Immunizations Tetanus Immunization: Up to Date - Past Medical History & Family History Past Medical History?: Yes - Past Social History Smoking Status: Light Smoker < 10 Cigarettes Daily - CARDIAC Hx Cardiac Disorders: No - PULMONARY Hx Bronchitis: Yes - NEUROLOGICAL Hx Neurological Disorder: No - HEENT Hx HEENT Problems: No - RENAL Hx Chronic Kidney Disease: No - ENDOCRINE/METABOLIC Hx Endocrine Disorders: No - HEMATOLOGICAL/ONCOLOGICAL Hx Blood Disorders: No - INTEGUMENTARY Hx Dermatological Problems: Yes Other/Comment: LEFT BREAST MASS. - MUSCULOSKELETAL/RHEUMATOLOGICAL Hx Back Pain: Yes - GASTROINTESTINAL Hx Gastrointestinal Disorders: No - GENITOURINARY/GYNECOLOGICAL Hx Genitourinary Disorders: No - PSYCHIATRIC Hx Anxiety: Yes Hx Bipolar Disorder: Yes Hx Post Traumatic Stress Disorder: Yes Hx Substance Use: Yes (marijuana this am) - SURGICAL HISTORY Other/Comment: Breast Surgery - ANESTHESIA Hx Anesthesia: Yes Hx Anesthesia Reactions: No Hx Malignant Hyperthermia: No Meds Allergies/Adverse Reactions: Allergies Allergy/AdvReac Type Severity Reaction Status Date / Time No Known Allergies Allergy Verified 07/23/18 11:01 - Medications Medications: Current Medications Docusate Sodium (Colace) 100 mg PO BID [facility] Enoxaparin Sodium (Lovenox) 30 mg SC 1000,2200 [facility] Vancomycin/Sodium Chloride (Vancomycin 1 Gm/Ns 200 Ml) 1 gm in 200 mls @ 133 mls/hr IVPB Q12H [facility]; Protocol Stop: 07/29/18 03:31 Morphine Sulfate (Morphine) 5 mg IV Q6 PRN PRN Reason: pain 8-10 Ondansetron HCl (Zofran Inj) 4 mg IVP Q6 PRN PRN Reason: Nausea/Vomiting Oxycodone/Acetaminophen (Percocet 5/325 Mg Tab) 2 tab PO Q4H PRN PRN Reason: pain Stop: 07/26/18 15:58 Pantoprazole Sodium (Protonix Inj) 40 mg IVP DAILY [facility] Physical Exam - Constitutional Appears: Well - Head Exam Head Exam: ATRAUMATIC, NORMAL INSPECTION, NORMOCEPHALIC - Eye Exam Eye Exam: EOMI, Normal appearance, PERRL Pupil Exam: NORMAL ACCOMODATION, PERRL - ENT Exam ENT Exam: Mucous Membranes Moist, Normal Exam - Neck Exam Neck exam: Positive for: Normal Inspection - Respiratory Exam Respiratory Exam: Clear to Auscultation Bilateral, NORMAL BREATHING PATTERN - Cardiovascular Exam Cardiovascular Exam: REGULAR RHYTHM - GI/Abdominal Exam GI & Abdominal Exam: Normal Bowel Sounds, Soft. absent: Tenderness - Rectal Exam Rectal Exam: Deferred - Exam Exam: NORMAL INSPECTION - Extremities Exam Extremities exam: Positive for: normal inspection - Back Exam Back exam: NORMAL INSPECTION - Neurological Exam Neurological exam: Alert, CN II-XII Intact, Normal Gait, Oriented x3, Reflexes Normal - Psychiatric Exam Psychiatric exam: Normal Affect, Normal Mood - Skin Skin Exam: Dry, Intact, Normal Color, Warm Additional comments: left breast with packing in place Results - Vital Signs Recent Vital Signs: Last Vital Signs Temp 98.6 F 07/23/18 17:05 Pulse 62 07/23/18 17:05 Resp 12 07/23/18 17:05 BP 103/54 L 07/23/18 17:05 Pulse Ox 98 07/23/18 17:05 - Labs Result Diagrams: 07/23/18 12:16 07/23/18 12:16 Labs: Laboratory Results - last 24 hr 07/23/18 07/23/18 07/23/18 12:16 12:16 12:16 WBC 9.7 RBC 4.50 Hgb 13.2 Hct 40.5 MCV 89.9 MCH 29.2 MCHC 32.5 L RDW 15.4 H Plt Count 234 MPV 7.8 Neut % (Auto) 67.9 Lymph % (Auto) 20.9 [place] % (Auto) 8.8 Eos % (Auto) 1.6 Baso % (Auto) 0.8 Neut # (Auto) 6.6 Lymph # (Auto) 2.0 [place] # (Auto) 0.9 H Eos # (Auto) 0.2 Baso # (Auto) 0.1 PT 11.8 INR 1.1 APTT 34 Sodium 140 Potassium 4.2 Chloride 106 Carbon Dioxide 26 Anion Gap 13 BUN 9 Creatinine 0.5 L Est GFR ( Amer) > 60 Est GFR (Non-Af Amer) > 60 Random Glucose 88 Calcium 9.0 Urine Color Urine Clarity Urine pH Ur Specific [place] Urine Protein Urine Glucose (UA) Urine Ketones Urine Blood Urine Nitrate Urine Bilirubin Urine Urobilinogen Ur Leukocyte Esterase Urine WBC (Auto) Urine RBC (Auto) Ur Squamous Epith Cells Urine HCG, Qual 07/23/18 12:16 WBC RBC Hgb Hct MCV MCH MCHC RDW Plt Count MPV Neut % (Auto) Lymph % (Auto) [place] % (Auto) Eos % (Auto) Baso % (Auto) Neut # (Auto) Lymph # (Auto) [place] # (Auto) Eos # (Auto) Baso # (Auto) PT INR APTT Sodium Potassium Chloride Carbon Dioxide Anion Gap BUN Creatinine Est GFR ( Amer) Est GFR (Non-Af Amer) Random Glucose Calcium Urine Color Yellow Urine Clarity Clear Urine pH 6.0 Ur Specific [place] 1.019 Urine Protein Negative Urine Glucose (UA) Normal Urine Ketones Negative Urine Blood Negative Urine Nitrate Negative Urine Bilirubin Negative Urine Urobilinogen Normal Ur Leukocyte Esterase Neg Urine WBC (Auto) 1 Urine RBC (Auto) < 1 Ur Squamous Epith Cells 3 Urine HCG, Qual Negative Assessment & Plan - Assessment and Plan (Free Text) Assessment: left breast abscess/ cellulitis consider bx / mammogram
[2018-07-23] MEDS: Morphine 4 MG/ML VIAL IV PRN (19:06)
[2018-07-23] MEDS: Piperacill/Tazo 3.375gm in Dex 3.375 GM/50 ML BAG IVPB SCH (19:30)
[2018-07-23] MEDS: Enoxaparin 30 mg Syringe SC SCH (22:11)
--- NOTE | 2018-07-24 01:46 | OP ---
PROCEDURE DATE: 07/23/2018 PREOPERATIVE DIAGNOSIS: Extensive left breast and chest wall abscess. POSTOPERATIVE DIAGNOSIS: Extensive left breast and chest wall abscess. PROCEDURE PERFORMED: Incision and drainage of an extensive left breast and chest wall abscess with debridement, repair of chest wall blood vessel, and partial advancement flap closure (22 sq cm). INDICATIONS FOR SURGERY: This is a 32-year-old female, admitted multiple times in the past due to bilateral breast abscesses. She has undergone extensive resections of breast tissue in order to prevent recurrence. It has recently been almost a year since her last admission after she underwent a major procedure almost a year ago. Unfortunately, she showed up again in my office with a draining breast abscess, was admitted to the emergency room today with a draining left breast, taken to the OR for drainage and exploration. GROSS FINDINGS: Abscess involved the lower portion of the breast, also part of the chest wall. There was a large amount of pus which was drained and cultured. There was also some necrotic tissue, especially associated with chest wall needed to be debrided and this was performed at the procedure. DESCRIPTION OF PROCEDURE: The patient was taken to the operating room. General anesthesia was administered, and the left breast was prepped and draped. An incision was made into the elliptical incision, was made into the abscess cavity, excising the overlying necrotic mass. The abscess cavity was noted to go down to the chest wall. There was also some necrotic fascia at the chest wall, this was debrided. There was a large bleeding blood vessel within the chest wall which was mobilized and repaired with Prolene. The wound was irrigated with copious amounts of saline solution. A full-thickness tissue flaps were raised at the periphery. Full-thickness counter incisions were made and an advancement flap closure totaling 22 sq cm was performed. The remainder of the wound was packed with a large amount of wet saline gauze and dressed sterilely. The patient tolerated the procedure well. Returned to recovery room in stable condition. Barry Harrell MD
[2018-07-24] MEDS: Piperacill/Tazo 3.375gm in Dex 3.375 GM/50 ML BAG IVPB SCH ×4 (01:52→19:19)
[2018-07-24] MEDS: Vancomycin 1 gm/NS 200 ml 1 GM/200 ML BAG IVPB SCH ×2 (03:10→15:30)
[2018-07-24 08:21] LABS: BASO # 0.1 K/uL (0.0-0.2); BASO % 0.7 % (0.0-2.0); EOS # 0.1 K/uL (0.0-0.7); EOS % 0.8 % (0.0-4.0); LYMPH # 1.6 K/uL (1.0-4.3); MEAN CELL VOLUME 89.4 fL (81.0-99.0); MEAN CORPUSCULAR HEMOGLOBIN 28.7 pg (27.0-31.0); MEAN CORPUSCULAR HGB CONC 32.1 g/dL (33.0-37.0); MEAN PLATELET VOLUME 7.7 fL (7.2-11.7); MONO # 1.3 K/uL (0.0-0.8); MONO % 13.1 % (0.0-10.0); NEUT # 6.6 K/uL (1.8-7.0); NEUT % 68.4 % (50.0-75.0); RBC 4.19 Mil/uL (3.80-5.20); RED CELL DISTRIBUTION WIDTH 14.7 % (11.5-14.5); WHITE BLOOD COUNT 9.7 K/uL (4.8-10.8)
[2018-07-24 08:43] LABS: ALB/GLOB RATIO 1.4 (1.0-2.1); ALBUMIN 4.1 g/dL (3.5-5.0); CALCIUM 8.5 mg/dl (8.6-10.4)
[2018-07-24] MEDS: Enoxaparin 30 mg Syringe SC SCH (09:04)
[2018-07-24] MEDS ORDERED: Sodium Chloride 0.9% 1,000 ML IV ONE (11:34)
--- NOTE | 2018-07-24 11:35 | CP.PCM.PN ---
<Dari Moscoso - Last Filed: 07/24/18 14:11> Subjective - Date & Time of Evaluation Date of Evaluation: 07/24/18 Time of Evaluation: 11:34 - Subjective Subjective: Progress note for Dr. Art (Covering for Dr. Tobar) Patient was seen and examined at bedside in no acute distress. Patient complains of feeling nausea, but denies vomiting. The patient is s/p I&D of a left breast abscess, POD#1. Patient is NPO for an additional procedure today. Patient denies chest pain, dyspnea, cough, fevers, headaches, abdominal pain, diarrhea, constipation, dysuria, leg pain. Objective - Vital Signs/Intake and Output Vital Signs (last 24 hours): Temp Pulse Resp BP Pulse Ox 98.5 F 66 20 103/69 97 07/24/18 08:00 07/24/18 08:00 07/24/18 08:00 07/24/18 08:00 07/24/18 08:00 Intake and Output: 07/24/18 07/24/18 06:59 18:59 Intake Total 900 250 Balance 900 250 - Medications Medications: Current Medications Docusate Sodium (Colace) 100 mg PO BID OPAL Last Admin: 07/24/18 09:04 Dose: Not Given Heparin Sodium (Porcine) (Heparin) 5,000 units SC Q12H OPAL Vancomycin/Sodium Chloride (Vancomycin 1 Gm/Ns 200 Ml) 1 gm in 200 mls @ 133 mls/hr IVPB Q12H OPAL; Protocol Stop: 07/29/18 03:31 Last Admin: 07/24/18 03:10 Dose: 133 mls/hr Piperacillin Sod/Tazobactam Sod (Zosyn 3.375 Gm Iv Premix) 3.375 gm in 50 mls @ 100 mls/hr IVPB Q6H OPAL; Protocol Last Admin: 07/24/18 07:56 Dose: 100 mls/hr Morphine Sulfate (Morphine) 5 mg IV Q6 PRN PRN Reason: pain 8-10 Last Admin: 07/23/18 19:06 Dose: 5 mg Ondansetron HCl (Zofran Inj) 4 mg IVP Q6 PRN PRN Reason: Nausea/Vomiting Last Admin: 07/24/18 10:04 Dose: 4 mg Oxycodone/Acetaminophen (Percocet 5/325 Mg Tab) 2 tab PO Q4H PRN PRN Reason: pain Stop: 07/26/18 15:58 Pantoprazole Sodium (Protonix Inj) 40 mg IVP DAILY OPAL Last Admin: 07/24/18 09:48 Dose: 40 mg - Labs Labs: 07/24/18 08:00 07/24/18 08:00 PT 11.8 SECONDS (9.7-12.2) 07/23/18 12:16 INR 1.1 07/23/18 12:16 APTT 34 SECONDS (21-34) 07/23/18 12:16 - Constitutional Appears: No Acute Distress - Head Exam Head Exam: ATRAUMATIC - Eye Exam Eye Exam: EOMI, Normal appearance - ENT Exam ENT Exam: Mucous Membranes Moist - Respiratory Exam Respiratory Exam: Clear to Ausculation Bilateral, NORMAL BREATHING PATTERN. absent: Rales, Rhonchi, Wheezes, Respiratory Distress - Cardiovascular Exam Cardiovascular Exam: REGULAR RHYTHM, +S1, +S2 - GI/Abdominal Exam GI & Abdominal Exam: Soft, Normal Bowel Sounds. absent: Distended, Tenderness - Neurological Exam Neurological Exam: Alert, Awake, Oriented x3 - Psychiatric Exam Psychiatric exam: Normal Affect, Normal Mood - Skin Skin Exam: Dry, Normal Color, Warm Additional comments: Left breast- dressing clean, dry, intact, no surrounding erythema, edema, or swelling noted. Assessment and Plan - Assessment and Plan (Free Text) Plan: L breast abscess - s/p I&D with Dr. Harrell, POD #1 - NPO, returning to OR today - ID consulted: Dr. Maher - Wound cx: no growth to date - A1c: 5.7 - Lipid panel: TG 61, Chol 125, LDL 86, HDL 32 - Medications: * Vancomycin [address] Harrell * Zosyn 3.375mg IV Q6h * Zofran prn for nausea * IVF NS@100mls/hr * Continue pain management per Dr. Harrell Depression, Bipolar Disorder - Recommend psych consult to resume meds - Pastoral care for depression PPx, Diet, Disposition - DVT ppx: Heparin 5000u SC Q12h (discontinued lovenox 30 mg SC due to elevated creatinine) - GI ppx: Protonix 40mg IV daily - Colace 100 mg PO BID Case discussed with and patient seen with Dr. Art (Covering for Dr. Tobar) Dari Shook, PGY2 <Leodan Art - Last Filed: 07/24/18 17:12> Objective - Vital Signs/Intake and Output Vital Signs (last 24 hours): Temp Pulse Resp BP Pulse Ox 98.2 F 64 13 109/52 L 99 07/24/18 16:30 07/24/18 17:00 07/24/18 17:00 07/24/18 17:00 07/24/18 17:00 Intake and Output: 07/24/18 07/24/18 06:59 18:59 Intake Total 900 1000 Balance 900 1000 - Medications Medications: Current Medications Docusate Sodium (Colace) 100 mg PO BID OPAL Last Admin: 07/24/18 09:04 Dose: Not Given Heparin Sodium (Porcine) (Heparin) 5,000 units SC Q12H OPAL Hydromorphone HCl (Dilaudid) 0.5 mg IVP Q10M PRN PRN Reason: Pain, moderate (4-7) Stop: 07/24/18 18:33 Last Admin: 07/24/18 16:51 Dose: 0.5 mg Vancomycin/Sodium Chloride (Vancomycin 1 Gm/Ns 200 Ml) 1 gm in 200 mls @ 133 mls/hr IVPB Q12H OPAL; Protocol Stop: 07/29/18 03:31 Last Admin: 07/24/18 03:10 Dose: 133 mls/hr Piperacillin Sod/Tazobactam Sod (Zosyn 3.375 Gm Iv Premix) 3.375 gm in 50 mls @ 100 mls/hr IVPB Q6H OPAL; Protocol Last Admin: 07/24/18 14:08 Dose: 100 mls/hr Sodium Chloride (Sodium Chloride 0.9%) 1,000 mls @ 100 mls/hr IV .Q10H OPAL Last Admin: 07/24/18 11:56 Dose: 100 mls/hr Morphine Sulfate (Morphine) 5 mg IV Q6 PRN PRN Reason: pain 8-10 Last Admin: 07/23/18 19:06 Dose: 5 mg Ondansetron HCl (Zofran Inj) 4 mg IVP Q6 PRN PRN Reason: Nausea/Vomiting Last Admin: 07/24/18 10:04 Dose: 4 mg Ondansetron HCl (Zofran Inj) 4 mg IVP ONCE PRN PRN Reason: Nausea/Vomiting Stop: 07/24/18 18:33 Oxycodone/Acetaminophen (Percocet 5/325 Mg Tab) 2 tab PO Q4H PRN PRN Reason: pain Stop: 07/26/18 15:58 Pantoprazole Sodium (Protonix Inj) 40 mg IVP DAILY OPAL Last Admin: 07/24/18 09:48 Dose: 40 mg - Labs Labs: 07/24/18 08:00 07/24/18 08:00 PT 11.8 SECONDS (9.7-12.2) 07/23/18 12:16 INR 1.1 07/23/18 12:16 APTT 34 SECONDS (21-34) 07/23/18 12:16 Attending/Attestation - Attestation I have personally seen and examined this patient.: Yes I have fully participated in the care of the patient.: Yes I have reviewed all pertinent clinical information, including history, physical exam and plan: Yes
[2018-07-24] MEDS: Sodium Chloride 0.9% 1,000 ML IV SCH ×2 (11:56→21:41)
[2018-07-24] MEDS ORDERED: Vancomycin 1 gm/D5W 200 ml 1 GM/200 ML BAG IVPB ONE (15:07)
[2018-07-24] MEDS ORDERED: Bupivacaine 0.25% 20 ML INJ IJ ONE (15:07)
[2018-07-24] MEDS ORDERED: Lidocaine Hydrochloride 0 ML INJ ONE (15:07)
[2018-07-24] MEDS ORDERED: Propofol 10 mg/ml Inj (20 ML) ONE (15:40)
[2018-07-24] MEDS ORDERED: Midazolam 2 MG/2 ML VIAL ONE (15:40)
[2018-07-24] MEDS ORDERED: Lactated Ringer's 1,000 ML IV ONE (16:30)
[2018-07-24] MEDS: HYDROmorphone 0.5 mg/0.5 ml ISec IVP PRN ×3 (16:45→17:10)
--- NOTE | 2018-07-24 17:36 | CP.PCM.PN ---
Subjective - Date & Time of Evaluation Date of Evaluation: 07/24/18 Time of Evaluation: 09:00 - Subjective Subjective: 31-year-old female, presents to the emergency department for left breast abscess drained in OR by Dr Harrell. Patient states she has a Hx of multiple abscesses with I&D. ID consulted for this Objective - Vital Signs/Intake and Output Vital Signs (last 24 hours): Temp Pulse Resp BP Pulse Ox 98.2 F 59 L 14 116/50 L 99 07/24/18 16:30 07/24/18 17:15 07/24/18 17:15 07/24/18 17:15 07/24/18 17:15 Intake and Output: 07/24/18 07/24/18 06:59 18:59 Intake Total 900 1000 Balance 900 1000 - Medications Medications: Current Medications Docusate Sodium (Colace) 100 mg PO BID OPAL Last Admin: 07/24/18 09:04 Dose: Not Given Heparin Sodium (Porcine) (Heparin) 5,000 units SC Q12H OPAL Hydromorphone HCl (Dilaudid) 0.5 mg IVP Q10M PRN PRN Reason: Pain, moderate (4-7) Stop: 07/24/18 18:33 Last Admin: 07/24/18 17:10 Dose: 0.5 mg Vancomycin/Sodium Chloride (Vancomycin 1 Gm/Ns 200 Ml) 1 gm in 200 mls @ 133 mls/hr IVPB Q12H OPAL; Protocol Stop: 07/29/18 03:31 Last Admin: 07/24/18 03:10 Dose: 133 mls/hr Piperacillin Sod/Tazobactam Sod (Zosyn 3.375 Gm Iv Premix) 3.375 gm in 50 mls @ 100 mls/hr IVPB Q6H OPAL; Protocol Last Admin: 07/24/18 14:08 Dose: 100 mls/hr Sodium Chloride (Sodium Chloride 0.9%) 1,000 mls @ 100 mls/hr IV .Q10H OPAL Last Admin: 07/24/18 11:56 Dose: 100 mls/hr Morphine Sulfate (Morphine) 5 mg IV Q6 PRN PRN Reason: pain 8-10 Last Admin: 07/23/18 19:06 Dose: 5 mg Ondansetron HCl (Zofran Inj) 4 mg IVP Q6 PRN PRN Reason: Nausea/Vomiting Last Admin: 07/24/18 10:04 Dose: 4 mg Ondansetron HCl (Zofran Inj) 4 mg IVP ONCE PRN PRN Reason: Nausea/Vomiting Stop: 07/24/18 18:33 Oxycodone/Acetaminophen (Percocet 5/325 Mg Tab) 2 tab PO Q4H PRN PRN Reason: pain Stop: 07/26/18 15:58 Pantoprazole Sodium (Protonix Inj) 40 mg IVP DAILY OPAL Last Admin: 07/24/18 09:48 Dose: 40 mg - Labs Labs: 07/24/18 08:00 07/24/18 08:00 PT 11.8 SECONDS (9.7-12.2) 07/23/18 12:16 INR 1.1 07/23/18 12:16 APTT 34 SECONDS (21-34) 07/23/18 12:16 - Constitutional Appears: Well - Head Exam Head Exam: ATRAUMATIC, NORMAL INSPECTION, NORMOCEPHALIC - Eye Exam Eye Exam: EOMI, Normal appearance, PERRL Pupil Exam: NORMAL ACCOMODATION, PERRL - ENT Exam ENT Exam: Mucous Membranes Moist, Normal Exam - Neck Exam Neck Exam: Full ROM, Normal Inspection. absent: Lymphadenopathy - Respiratory Exam Respiratory Exam: Clear to Ausculation Bilateral, NORMAL BREATHING PATTERN - Cardiovascular Exam Cardiovascular Exam: REGULAR RHYTHM, +S1, +S2. absent: Murmur - GI/Abdominal Exam GI & Abdominal Exam: Soft, Normal Bowel Sounds. absent: Tenderness - Rectal Exam Rectal Exam: NORMAL INSPECTION - Exam Exam: Circumcision, NORMAL INSPECTION External exam: NORMAL EXTERNAL EXAM Speculum exam: NORMAL SPECULUM EXAM Bimanual exam: NORMAL BIMANUAL EXAM - Extremities Exam Extremities Exam: Full ROM, Normal Capillary Refill, Normal Inspection. absent: Joint Swelling, Pedal Edema - Back Exam Back Exam: NORMAL INSPECTION - Neurological Exam Neurological Exam: Alert, Awake, CN II-XII Intact, Normal Gait, Oriented x3 - Psychiatric Exam Psychiatric exam: Normal Affect, Normal Mood - Skin Skin Exam: Dry, Intact, Normal Color Assessment and Plan (1) Abscess of breast Status: Acute - Assessment and Plan (Free Text) Assessment: for OR/cultures IV rx continued
[2018-07-24] MEDS: Morphine 4 MG/ML VIAL IV PRN (21:00)
--- NOTE | 2018-07-25 00:31 | OP ---
PROCEDURE DATE: 07/24/2018 PREOPERATIVE DIAGNOSIS: Left breast abscess with a large open wound. POSTOPERATIVE DIAGNOSIS: Left breast abscess with a large open wound. PROCEDURE PERFORMED: Re-drainage of left breast abscess with debridement of large open wound and advancement flap closure (24 sq cm). SURGEON: Barry Harrell MD ANESTHESIA: General endotracheal. ESTIMATED BLOOD LOSS: 20 mL. POSTOPERATIVE CONDITION: Stable. INDICATIONS FOR SURGERY: This is a 32-year-old female, came in with a large breast abscess yesterday, taken to the OR, underwent a drainage and debridement with a partial closure. The patient was taken back to the OR for change of packing and possible closure of the wound if it was healed adequately. GROSS FINDINGS: The wound was noted to be granulating. A small fluid collection was drained and cultured. After vigorous pulse irrigation, it was seemed to be clean enough to close advancement flap closure. DESCRIPTION OF PROCEDURE: The patient was taken to the operating room. General anesthesia was administered, and the left breast was prepped and draped. Previous packing removed. The wound was debrided of necrotic tissue and remaining collections were drained and cultured. Bleeding was controlled using the Bovie. The wound was pulse irrigated with 3 L of saline and Kantrex solution. At the conclusion, it was seen to be clean and adequate for closure. Full-thickness tissue flaps were raised including chest wall fascia. Counter incisions were made and an advancement flap closure was performed with multiple layers of subcuticular Monocryl. The wound was dressed sterilely. The patient tolerated the procedure well and returned to the recovery room in stable condition. Barry Harrell MD
[2018-07-25] MEDS: Piperacill/Tazo 3.375gm in Dex 3.375 GM/50 ML BAG IVPB SCH ×3 (01:35→13:48)
[2018-07-25] MEDS: Vancomycin 1 gm/NS 200 ml 1 GM/200 ML BAG IVPB SCH (05:35)
[2018-07-25] MEDS: Morphine 4 MG/ML VIAL IV PRN ×2 (05:57→12:28)
[2018-07-25] MEDS: Sodium Chloride 0.9% 1,000 ML IV SCH (07:45)
[2018-07-25 07:54] VITALS: BP 98/61; PULSE 62; RESP 18; TEMP 98; O2SAT 98
[2018-07-25 12:52] LABS: CALCIUM 8.6 mg/dl (8.6-10.4)
[2018-07-25] MEDS ORDERED: Potassium Chloride 20 mEq ER Tab PO ONE (13:45)
--- NOTE | 2018-07-25 16:57 | CP.PCM.PN ---
<Keith Ordaz - Last Filed: 07/25/18 16:57> Subjective - Date & Time of Evaluation Date of Evaluation: 07/25/18 Time of Evaluation: 16:55 - Subjective Subjective: Progress note. Attending: Dr. Estrada Pt seen and examined at bedside. NO acute distress. No fevers, chills, vomiting, diarrhea. Objective - Vital Signs/Intake and Output Vital Signs (last 24 hours): Temp Pulse Resp BP Pulse Ox 98 F 62 18 98/61 L 98 07/25/18 07:52 07/25/18 07:52 07/25/18 07:52 07/25/18 07:52 07/25/18 07:52 Intake and Output: 07/25/18 07/25/18 06:59 18:59 Intake Total 1200 Balance 1200 - Labs Labs: 07/24/18 08:00 07/25/18 12:05 PT 11.8 SECONDS (9.7-12.2) 07/23/18 12:16 INR 1.1 07/23/18 12:16 APTT 34 SECONDS (21-34) 07/23/18 12:16 - Constitutional Appears: Non-toxic, No Acute Distress - Head Exam Head Exam: ATRAUMATIC, NORMAL INSPECTION, NORMOCEPHALIC - Eye Exam Eye Exam: EOMI - ENT Exam ENT Exam: Mucous Membranes Moist - Neck Exam Neck Exam: Full ROM - Respiratory Exam Respiratory Exam: NORMAL BREATHING PATTERN. absent: Respiratory Distress - Cardiovascular Exam Cardiovascular Exam: +S1, +S2 - GI/Abdominal Exam GI & Abdominal Exam: Soft, Normal Bowel Sounds. absent: Tenderness - Extremities Exam Extremities Exam: Full ROM, Normal Inspection - Back Exam Back Exam: NORMAL INSPECTION - Neurological Exam Neurological Exam: Alert, Awake, Oriented x3 - Psychiatric Exam Psychiatric exam: Normal Affect, Normal Mood - Skin Skin Exam: Dry, Intact, Normal Color, Warm Assessment and Plan - Assessment and Plan (Free Text) Assessment: This is a 32 year old female with L breast abscess - s/p I&D with Dr. Harrell, POD #2 - ID consulted: Dr. Maher - Wound cx: no growth to date - A1c: 5.7 - Lipid panel: TG 61, Chol 125, LDL 86, HDL 32 - Medications: * Vancomycin [address] Harrell * Zosyn 3.375mg IV Q6h * Zofran prn for nausea * IVF NS@100mls/hr * Continue pain management per Dr. Harrell Depression, Bipolar Disorder - Recommend psych consult to resume meds - Pastoral care for depression PPx, Diet, Disposition - DVT ppx: Heparin 5000u SC Q12h (discontinued lovenox 30 mg SC due to elevated creatinine) - GI ppx: Protonix 40mg IV daily - Colace 100 mg PO BID Dispo: plan for discharge today discussed with Dr. Estrada <Brian Estrada - Last Filed: 07/25/18 18:46> Objective - Vital Signs/Intake and Output Vital Signs (last 24 hours): Temp Pulse Resp BP Pulse Ox 98 F 62 18 98/61 L 98 07/25/18 07:52 07/25/18 07:52 07/25/18 07:52 07/25/18 07:52 07/25/18 07:52 Intake and Output: 07/25/18 07/25/18 06:59 18:59 Intake Total 1200 Balance 1200 - Labs Labs: 07/24/18 08:00 07/25/18 12:05 PT 11.8 SECONDS (9.7-12.2) 07/23/18 12:16 INR 1.1 07/23/18 12:16 APTT 34 SECONDS (21-34) 07/23/18 12:16 Attending/Attestation - Attestation I have personally seen and examined this patient.: Yes I have fully participated in the care of the patient.: Yes I have reviewed all pertinent clinical information, including history, physical exam and plan: Yes Notes (Text): 07/25/18 18:45 Hospitalist note: Today hospitalist service was covering for Dr Carlos. Patient was actively walking in the hallway. She was not in any acute distress She reported feeling well and did not have any questions. Brian Estrada
--- NOTE | 2018-07-26 10:33 | PCM.PSYCH ---
Initial Psychiatric Evaluation - Initial Psychiatric Evaluation Type of Admission: Voluntary Legal Status: Capacity Past Psychiatric History - Past Psychiatric History Pertinent Medical Hx (Current Medical&Sleep Prob, Allergies): Allergies Allergy/AdvReac Type Severity Reaction Status Date / Time No Known Allergies Allergy Verified 07/23/18 11:01 Acetaminophen with Codeine [Tylenol with Codeine No. 4 300 mg-60 mg] 1 tab PO Q6 07/23/18 LORazepam [Ativan] 1 mg PO BID 07/23/18 QUEtiapine [SEROquel XR] 150 mg PO HS 07/23/18
== END 2018-07-25 14:36 | disposition home or self-care (01) | DRG 266 ==
LOC: C.3T 10:53 → C.ER 10:53 → C.SDS 12:07 → C.3T 15:58
PROVIDERS: ADMIT Surgery; ATTEND Surgery
PROC: 0HX5XZZ Transfer Chest Skin, External Approach (ICD-10-PCS; 2018-07-23)
PROC: 05QY0ZZ Repair Upper Vein, Open Approach (ICD-10-PCS; 2018-07-23)
PROC: 0H9U0ZZ Drainage of Left Breast, Open Approach (ICD-10-PCS; 2018-07-23)
PROC: 0HBU0ZZ Excision of Left Breast, Open Approach (ICD-10-PCS; principal; 2018-07-23 16:00)
PROC: 0HX5XZZ Transfer Chest Skin, External Approach (ICD-10-PCS; 2018-07-24)
PROC: 0HBU0ZZ Excision of Left Breast, Open Approach (ICD-10-PCS; 2018-07-24)
PROC: 0H9U0ZZ Drainage of Left Breast, Open Approach (ICD-10-PCS; 2018-07-24)
DX: N64.1 Fat necrosis of breast (principal); N61.1 Abscess of the breast and nipple; F12.90 Cannabis use, unspecified, uncomplicated; F17.210 Nicotine dependence, cigarettes, uncomplicated; F43.10 Post-traumatic stress disorder, unspecified; F31.9 Bipolar disorder, unspecified; Z80.3 Family history of malignant neoplasm of breast